=== PATIENT | female | born 1945 | race Caucasian/White ===

== ENCOUNTER 2023-06-06 10:35 | Outpatient (CLI) | payer MEDICARE, OTHER, SELFPAY ==
--- NOTE | 2023-06-06 10:56 | USCV_ITS ---
Omayra Ryan Age: 77 Gender: F : 1945 Exam Date: 06/06/2023 11:05 Ordering Phys: Kelly Donohue Technologist: CT Exam Location: [facility] [place] Indication: sob BP: 143 / 60 HR: 67 Rhythm: Sinus Technical Quality: Adequate MEASUREMENTS (Male / Female) Normal Values 2D ECHO LV Chamber Size 4.3 cm RV Chamber Size 3.5 cm LVOT Diameter 2.0 cm LV Ejection Fraction MOD 2C 61.5 % LV Ejection Fraction 2C AL 63.1 % LA Diameter 4.8 cm LA Width 3.9 cm LA Height 4.3 cm RA Width 3.0 cm RA Height 3.9 cm Aorta at Sinotubular Diameter 2.1 cm IVC Diameter 1.5 cm M-MODE Aortic Annulus Diameter 2.9 cm LA Ao Ratio MM 1.8 MV E Point Septal Separation 1.0 cm DOPPLER AV Peak Velocity 137.0 cm/s LVOT Peak Velocity 119.0 cm/s AV Area Cont Eq vti 2.6 cm squared AV Area Cont Eq pk 2.8 cm squared MV Peak Velocity 105.0 cm/s MV E' Velocity 8.0 cm/s TR Peak Velocity 276.7 cm/s TR Peak Gradient 30.6 mmHg TV Peak E Velocity 109.0 cm/s Right Atrial Pressure 3.0 mmHg Pulmonary Artery Systolic Pressu 33.6 mmHg PV Peak Velocity 118.0 cm/s FINDINGS Left Ventricle Normal left ventricular size, systolic function and wall thickness, with no regional wall motion abnormalities. Left ventricular ejection fraction is estimated at 70 %. Normal diastolic function. Right Ventricle Normal right ventricular size and systolic function. Right ventricular systolic pressure 33.6 mmHg. Right Atrium Normal right atrial size. Left Atrium Normal left atrial size. Mitral Valve Mild mitral annular calcification. Structurally normal mitral valve. No mitral valve stenosis. Trace mitral valve regurgitation. Aortic Valve Thickened trileaflet aortic valve. No aortic valve stenosis. Trace aortic valve regurgitation. Tricuspid Valve Structurally normal tricuspid valve. No tricuspid valve stenosis. Mild tricuspid valve regurgitation. Pulmonic Valve Structurally normal pulmonic valve. No pulmonary valve stenosis. Trace pulmonary valve regurgitation. Pericardium No pericardial effusion. Aorta Normal size aortic root and proximal ascending aorta. IVC Normal IVC dimension with >50% respiratory change of the inferior vena cava. CONCLUSIONS 1. Normal left ventricular size, systolic function and wall thickness, with no regional wall motion abnormalities. Left ventricular ejection fraction is estimated at 70 %. Normal diastolic function. 2. Mild tricuspid valve regurgitation. 3. Normal pulmonary artery pressure. 4. No prior similar studies to compare. Nichole Clark MD (Electronically Signed) Final Date: 06 June 2023 15:23 S
== END 2023-06-06 10:36 | disposition home or self-care (01) ==
LOC: RAD 10:42
PROVIDERS: PCP Registered Nurse; Visit Provider Registered Nurse
DX: R06.09 Other forms of dyspnea (principal); I07.1 Rheumatic tricuspid insufficiency
CPT/HCPCS: 93306

== ENCOUNTER → 2024-04-22 09:22 | Outpatient (BNVA) | payer MEDICARE, OTHER, SELFPAY | PROVIDERS: PCP Registered Nurse; Visit Provider Podiatrist Foot & Ankle Surgery | DX: M25.571 Pain in right ankle and joints of right foot (principal); M84.361A Stress fracture, right tibia, initial encounter for fracture | CPT/HCPCS: 73610 ==

== ENCOUNTER 2024-04-22 10:45 | Outpatient (CLI) | payer MEDICARE, OTHER, SELFPAY | END 2024-04-22 10:46 | disposition home or self-care (01) | LOC: SPT 10:46 | PROVIDERS: PCP Registered Nurse; Visit Provider Podiatrist Foot & Ankle Surgery | DX: Z46.89 Encounter for fitting and adjustment of other specified devices (principal); M84.30XD Stress fracture, unspecified site, subsequent encounter for fracture with routine healing; X58.XXXD Exposure to other specified factors, subsequent encounter | CPT/HCPCS: 97760; 99204; L4361 ==

== ENCOUNTER → 2024-05-14 13:44 | Outpatient (BNVA) | payer MEDICARE, OTHER, SELFPAY | PROVIDERS: PCP Registered Nurse; Visit Provider Podiatrist Foot & Ankle Surgery | DX: M25.571 Pain in right ankle and joints of right foot; M84.361A Stress fracture, right tibia, initial encounter for fracture; X58.XXXA Exposure to other specified factors, initial encounter; Z46.89 Encounter for fitting and adjustment of other specified devices; M84.369D Stress fracture, unspecified tibia and fibula, subsequent encounter for fracture with routine healing; X58.XXXD Exposure to other specified factors, subsequent encounter | CPT/HCPCS: 73610 ==

== ENCOUNTER 2024-05-14 14:14 | Outpatient (CLI) | payer MEDICARE, OTHER, SELFPAY | END 2024-05-14 14:15 | disposition home or self-care (01) | LOC: SPT 14:14 | PROVIDERS: PCP Registered Nurse; Visit Provider Podiatrist Foot & Ankle Surgery | DX: Z46.89 Encounter for fitting and adjustment of other specified devices (principal); M84.369D Stress fracture, unspecified tibia and fibula, subsequent encounter for fracture with routine healing; X58.XXXD Exposure to other specified factors, subsequent encounter | CPT/HCPCS: 97760; L1902 ==

== ENCOUNTER → 2024-05-28 13:48 | Outpatient (BNVA) | payer MEDICARE, OTHER, SELFPAY | PROVIDERS: PCP Registered Nurse; Visit Provider Podiatrist Foot & Ankle Surgery | DX: M84.361A Stress fracture, right tibia, initial encounter for fracture; X58.XXXA Exposure to other specified factors, initial encounter | CPT/HCPCS: 99213 ==

== ENCOUNTER → 2024-07-09 12:36 | Outpatient (BNVA) | payer MEDICARE, OTHER, SELFPAY | PROVIDERS: PCP Registered Nurse; Visit Provider Podiatrist Foot & Ankle Surgery | DX: M84.361A Stress fracture, right tibia, initial encounter for fracture | CPT/HCPCS: 99213 ==

== ENCOUNTER → 2024-10-08 13:57 | Outpatient (BNVA) | payer MEDICARE, OTHER, SELFPAY | PROVIDERS: PCP Registered Nurse; Visit Provider Podiatrist Foot & Ankle Surgery | DX: M84.361A Stress fracture, right tibia, initial encounter for fracture (principal); X58.XXXA Exposure to other specified factors, initial encounter | CPT/HCPCS: 99213 ==

== ENCOUNTER 2025-03-01 06:09 | Inpatient (IN) | payer MEDICARE, OTHER, SELFPAY ==
[2025-03-01] VITALS (23 sets, daily range): BP systolic 127–154; BP diastolic 57–99; PULSE 70–143; RESP 18–26; TEMP 36.4–37; O2SAT 90–96; BMI 30.2; BMI 31.9
--- NOTE | 2025-03-01 06:10 | ECG_ITS ---
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 Measurements Intervals Reese Rate: 136 P: 0 AL: 0 QRS: 5 QRSD: 92 T: 53 QT: 290 QTc: 437 Interpretive Statements ATRIAL FLUTTER/TACHYCARDIA WITH RAPID VENTRICULAR RESPONSE MODERATE ST DEPRESSION [0.05+ mV ST DEPRESSION] No previous ECG available for comparison Electronically Signed On 03-01-2025 18:34:42 CDT by Chris Anderson M.D. [email or web address]
--- NOTE | 2025-03-01 06:18 | XRR_ITS ---
PROCEDURE INFORMATION: Exam: XR Chest Exam date and time: 03/01/2025 6:28 AM Age: 79 years old Clinical indication: Other: Palpitations/afib; C/O palpitations with afib. ; Additional info: A fib rvr TECHNIQUE: Imaging protocol: Radiologic exam of the chest. Views: 1 view. COMPARISON: No relevant prior studies available. FINDINGS: Lungs: Mild chronic interstitial prominence. Pleural spaces: Unremarkable. No pleural effusion. No pneumothorax. Heart/Mediastinum: Unremarkable. No cardiomegaly. Diaphragm: Moderate elevation of the right hemidiaphragm. Bones/joints: Unremarkable. XR/XR chest 1V portable [id number] IMPRESSION: No acute findings.
--- NOTE | 2025-03-01 06:23 | W.ED.ARRPALP ---
HPI - Arrhythmia/Palpitations General: Chief Complaint: Arrhythmia/Palpitations Stated Complaint: afib Time Seen by Provider: 03/01/25 06:18 History of Present Illness: This patient is a 79 year old arriving by EMS. She states that she was awakened at 4:30 this morning with her heart racing. She denies chest pain or heaviness, denies shortness of breath, lightheadedness, nausea or sweating. She was given diltiazem by EMS - 17 mg and then 24 mg and in the ED during my history her heart rate was irregular and varied between 90 and 150. She denies any history of a fib or prior episodes of her heart racing - but she does say that she is on atenolol to regulate my heart . It sound like she might be on that for PVC?. She also says that she had ecoli in her kidney a few weeks ago and at that time her BP was running high so they increased her losartan from 50 mg to 100 mg. She denies other medication changes and says that she is compliant with her medications. She took her atenolol last night but hasn't taken any medications this morning. Related Data Home Medications ?Medication ?Instructions ?Recorded ?Confirmed alprazolam 0.25 mg tablet 0.125 mg PO TID 04/22/24 03/01/25 omeprazole 20 mg capsule,delayed 20 mg PO DAILY 04/22/24 03/01/25 release simvastatin 40 mg tablet 40 mg PO DAILY 04/22/24 03/01/25 triamterene 37.5 1 cap PO QAM 04/22/24 03/01/25 mg-hydrochlorothiazide 25 mg capsule atenolol 50 mg tablet 100 mg PO DAILY 03/01/25 03/01/25 calcium 600 mg (as 1 tab PO DAILY 03/01/25 03/01/25 carbonate)-vitamin D3 5 mcg (200 unit) tablet cyclobenzaprine 10 mg tablet 10 mg PO BEDTIME 03/01/25 03/01/25 losartan 100 mg tablet 100 mg PO DAILY 03/01/25 03/01/25 meloxicam 7.5 mg tablet 15 mg PO DAILY 03/01/25 03/01/25 metformin 500 mg tablet,extended 500 mg PO QAM 03/01/25 03/01/25 release 24 hr Previous Rx's ?Medication ?Instructions ?Recorded CAM BOOT #1 ea 04/22/24 ASO brace #1 ea 05/14/24 Allergies Allergy/AdvReac Type Severity Reaction Status Date / Time azithromycin Allergy Unknown Verified 03/01/25 06:11 Sulfa (Sulfonamide Allergy Unknown Verified 10/08/24 14:21 Antibiotics) [facility] ED PFSH: Medical History (Updated 03/01/25 @ 16:20 by Luis Antonio Clemons MD) Hypertension Presbycusis of both ears Diabetes COPD (chronic obstructive pulmonary disease) Social History (Updated 03/01/25 @ 16:19 by Luis Antonio Clemons MD) Smoking and tobacco/nicotine status: never used tobacco/nicotine Alcohol intake: never Substance/Drug Use: never Additional social history: 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 Physical Exam Const: COMMON NORMALS: no acute distress, patient oriented x3, no limitations and alert GENERAL APPEARANCE: cooperative and comfortable HENMT: HEAD & SCALP: normal to inspection FACE & SINUS: normal facial exam Eye: GENERAL EYE: appearance normal, both eyes and all related structures Neck/C-Spine: COMMON NORMALS: supple and no meningeal signs Chest: COMMONS NORMALS: normal inspection of the chest Resp: COMMON NORMALS: normal respiratory effort, No use of accessory muscles and clear to auscultation bilaterally AUSCULTATION: clear to auscultation bilaterally Cardio: COMMON NORMALS: Peripheral pulses 2+ throughout RATE: tachycardic RHYTHM: abnormal rhythm irregularly irregular HEART SOUNDS: no murmurs PERIPHERAL PULSES: Peripheral pulses 2+ throughout GI: COMMON NORMALS: Normal to inspection, nondistended, normoactive bowel sounds present, Soft to palpation and non-tender INSPECTION: Yes normal to inspection AUSCULTATION: Yes normoactive bowel sounds PALPATION: Yes Soft to palpation Back/Pelvis: COMMON NORMALS: thoracic and lumbar spine normal to inspection Extremity: NARRATIVE EXTREMITY EXAM: trace edema Neuro: COMMON NORMALS: patient oriented x3, moves all extremities, no focal motor deficits and no sensory deficits noted SENSORIUM/ORIENTATION: Yes alert MENINGEAL SIGNS: Yes no meningeal signs Psych: COMMON NORMALS: mental status grossly normal, cooperative and normal affect Skin: COMMON NORMALS: no rashes or lesions noted and turgor normal GENERAL SKIN EXAM: no rashes or lesions noted and turgor normal Course Vital Signs: Vital signs: Vital Signs Temperature 98.0 F 03/01/25 16:00 Pulse Rate 74 03/01/25 16:00 Respiratory Rate 19 H 03/01/25 16:00 Blood Pressure 137/57 03/01/25 16:00 Pulse Oximetry 96 03/01/25 16:00 Oxygen Delivery Me thod Nasal Cannula 03/01/25 13:48 Oxygen Flow Rate 2 03/01/25 13:48 MDM - Arrhythmia/Palpitations Medical Decision Making Patient presents with elevated heart rate but otherwise asymptomatic. She is on atenolol and hasn't taken it yet today. BP is 150's. She had a recent episode of pyelonephritis a few weeks ago. Unfortunately, her only records in our EHR are podiatry records. Diltiazem drip is started. Next step will be IV metoprolol. I suspect this is more likely A flutter than a fib but it is difficult to see p waves on the EKG. repeat EKG showed resolution of the mild ST depression that was seen on the initial. She was comfortable. She was admitted to the hospitalist on a Cardizem drip. Lab Data 03/01/25 06:20 03/01/25 06:20 Radiology Impressions Chest X-Ray 03/01/25 06:18 IMPRESSION: No acute findings. Laboratory Results WBC 6.38 10^3/uL (3.29-11.43) 03/01/25 06:20 RBC 4.23 10^6/uL (3.85-5.65) 03/01/25 06:20 Hgb 12.20 g/dL (11.27-16.99) 03/01/25 06:20 Hct 38.3 % (36-47) 03/01/25 06:20 MCV 90.5 fl (85-98) 03/01/25 06:20 MCH 28.8 pg (27-33) 03/01/25 06:20 MCHC 31.9 g/dL (30-55) 03/01/25 06:20 RDW 11.9 % (12.1-15.1) L 03/01/25 06:20 Plt Count 192 10^3/cmm (157-399) 03/01/25 06:20 MPV 10.2 fL (7.4-10.4) 03/01/25 06:20 Neut % (Auto) 64.0 % 03/01/25 06:20 Lymph % (Auto) 20.8 % 03/01/25 06:20 Stanton % (Auto) 10.3 % 03/01/25 06:20 Eos % (Auto) 3.9 % 03/01/25 06:20 Baso % (Auto) 0.5 % 03/01/25 06:20 Neut # (Auto) 4.08 10^3/uL (1.8-7.7) 03/01/25 06:20 Lymph # (Auto) 1.3 10^3/uL (0.8-4.8) 03/01/25 06:20 Stanton # (Auto) 0.7 10^3/uL (0.2-0.9) 03/01/25 06:20 Eos # (Auto) 0.3 10^3/uL (0.0-0.8) 03/01/25 06:20 Baso # (Auto) 0.0 10^3/uL (0.0-0.1) 03/01/25 06:20 Nucleated RBC % (auto) 0 % 03/01/25 06:20 Nucleated RBCs # 0.0 /100WBC 03/01/25 06:20 Sodium 137 mmol/L (136-145) 03/01/25 06:20 Potassium 3.9 mmol/L (3.5-5.1) 03/01/25 06:20 Chloride 98 mmol/L (98-107) 03/01/25 06:20 Carbon Dioxide 28 mmol/L (22-29) 03/01/25 06:20 Anion Gap 14.9 (5-19) 03/01/25 06:20 BUN 21 mg/dL (8-23) 03/01/25 06:20 Creatinine 0.9 mg/dL (0.5-0.9) 03/01/25 06:20 GFR Calculation Not Reportable 03/01/25 06:20 Glucose 154 mg/dL (65-115) H 03/01/25 06:20 Calculated Osmolality 290 mOsm/kg (285-295) 03/01/25 06:20 Calcium 8.2 mg/dL (8.5-10.5) L 03/01/25 06:20 Total Bilirubin 0.4 mg/dL (0.15-1.2) 03/01/25 06:20 AST 17 U/L (0-32) 03/01/25 06:20 ALT 10 U/L (0-33) 03/01/25 06:20 Alkaline Phosphatase 85 U/L (35-105) 03/01/25 06:20 Troponin T Baseline 14 ng/L (0-10) H 03/01/25 06:20 Troponin T 120 Minute 17.58 ng/L (0-10) H 03/01/25 08:21 Delta Troponin T 3.58 ABS# (0-10) 03/01/25 08:21 NT-Pro-B Natriuret Pep 785 pg/mL (0-450) H 03/01/25 06:20 Total Protein 6.7 g/dL (6.6-8.7) 03/01/25 06:20 Albumin 3.7 g/dL (3.5-5.2) 03/01/25 06:20 Globulin 3.0 g/dL (1.3-4.6) 03/01/25 06:20 Urine Color Yellow (Yellow) 03/01/25 06:20 Urine Appearance Clear (CLEAR) 03/01/25 06:20 Urine pH 8.0 (5-7) A 03/01/25 06:20 Ur Specific [place] 1.008 (1.005-1.030) 03/01/25 06:20 Urine Protein 1+ (Negative) A 03/01/25 06:20 Urine Glucose (UA) Negative (Normal) 03/01/25 06:20 Urine Ketones Negative (Negative) 03/01/25 06:20 Urine Blood Negative (Negative) 03/01/25 06:20 Urine Nitrate Negative (Negative) 03/01/25 06:20 Urine Bilirubin Negative (Negative) 03/01/25 06:20 Urine Urobilinogen 0.2 mg/dL (Negative) 03/01/25 06:20 Ur Leukocyte Esterase Negative (Negative) 03/01/25 06:20 Urine RBC 0-2 /hpf (0-2) 03/01/25 06:20 Urine WBC 0-5 /hpf (0-5) 03/01/25 06:20 Ur Squamous Epith Cells 0-5 /hpf (0-5) 03/01/25 06:20 Amorphous Sediment Not Reportable 03/01/25 06:20 Urine Bacteria 3+ /hpf (NONE) H 03/01/25 06:20 Hyaline Casts 0-4 /lpf H 03/01/25 06:20 All radiology interpretation(s) finalized by discharge Discharge Plan Discharge Patient Disposition: Admitted As Inpatient Admit Provider: Luis Antonio Clemons Clinical Impression: Atrial flutter, Atrial flutter with rapid ventricular response Condition: Stable Coding Level of Care Code ED Church Organist for Debby Krause
--- OUTSIDE RECORDS SUMMARY | 2025-03-01 06:24 | XMS_ITS | Encounter Summary ---
Author Organization [facility] Address [address] [place] [address] Care Team Providers Care Medical Information Officer Name Role Phone Nicole Blank MD Primary Care Provider [phone] Encounter Details Date Type Department Care Team (Latest Contact Info) Description 01/13/2003 Outpatient Historical [facility] Family Medicine [place] [address] [facility] [address] [place] [address] Shukri Teran DO NO ADDRESS ON FILE Sprain lumbosacral (Primary Dx); CYSTITIS NOS Social History Tobacco Use Types Packs/Day Years Used Date Smoking Tobacco: Never Assessed Comments Unknown Sex and Gender Information Value Date Recorded Sex Assigned at Not on file 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 Gender Identity Not on file Sexual Orientation Not on file documented as of this encounter Plan of Treatment Not on file documented as of this encounter Visit Diagnoses Diagnosis Sprain lumbosacral- Primary Sprain of lumbosacral (joint) (ligament) Cystitis, unspecified documented in this encounter Additional Health Concerns Infection Onset Date Last Indicated Resolved Time R/O COVID-19 04/27/2020 04/27/2020 04/29/2020 2:15 AM CDT R/O COVID-19 02/01/2021 02/01/2021 02/01/2021 3:10 PM CDT documented as of this encounter Care Teams Medical Information Officer Relationship Specialty Start Date End Date Nicole Blank MD [address] [phone] PCP - General Family Practice 10/02/13 documented as of this encounter
--- OUTSIDE RECORDS SUMMARY | 2025-03-01 06:24 | XMS_ITS | Encounter Summary ---
Author Organization [facility] Address [address] [place] [address] Care Team Providers Care Dental Hygienist Name Role Phone Nicole Blank MD Primary Care Provider Encounter Details Date Type Department Care Team (Latest Contact Info) Description 11/15/[address] 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 Gender Identity Not on file Sexual Orientation Not on file documented as of this encounter Plan of Treatment Not on file documented as of this encounter Visit Diagnoses Diagnosis Pure hypercholesterolem- Primary Pure hypercholesterolemia documented in this encounter Additional Health Concerns Infection Onset Date Last Indicated Resolved Time R/O COVID-19 04/27/2020 04/27/2020 04/29/2020 2:15 AM CDT R/O COVID-19 02/01/2021 02/01/2021 02/01/2021 3:10 PM CDT documented as of this encounter Care Teams Dental Hygienist Relationship Specialty Start Date End Date Nicole Blank MD [address] [phone] PCP - General Family Practice 10/02/13 documented as of this encounter
--- OUTSIDE RECORDS SUMMARY | 2025-03-01 06:24 | XMS_ITS | Encounter Summary ---
Author Organization [facility] Address [address] [place] [address] Care Team Providers Care Director Wholesale Name Role Phone Nicole Blank MD Primary Care Provider Encounter Details Date Type Department Care Team (Latest Contact Info) Description 06/14/2001 Outpatient Historical [facility] Family Medicine [place] [address] [facility] [address] [place] [address] Shukri Teran DO NO ADDRESS ON FILE SYMPTOMS IN BREAST NEC (Primary Dx) Social History Tobacco Use Types Packs/Day Years Used Date Smoking Tobacco: Never Assessed Comments Unknown Sex and Gender Information Value Date Recorded Sex Assigned at Not on file 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 Gender Identity Not on file Sexual Orientation Not on file documented as of this encounter Plan of Treatment Not on file documented as of this encounter Visit Diagnoses Diagnosis Other sign and symptom in breast- Primary documented in this encounter Additional Health Concerns Infection Onset Date Last Indicated Resolved Time R/O COVID-19 04/27/2020 04/27/2020 04/29/2020 2:15 AM CDT R/O COVID-19 02/01/2021 02/01/2021 02/01/2021 3:10 PM CDT documented as of this encounter Care Teams Director Wholesale Relationship Specialty Start Date End Date Nicole Blank MD [address] [phone] PCP - General Family Practice 10/02/13 documented as of this encounter
--- OUTSIDE RECORDS SUMMARY | 2025-03-01 06:24 | XMS_ITS | Encounter Summary ---
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 Gender Identity Not on file Sexual Orientation Not on file documented as of this encounter Plan of Treatment Not on file documented as of this encounter Visit Diagnoses Not on filedocumented in this encounter Additional Health Concerns Infection Onset Date Last Indicated Resolved Time R/O COVID-19 04/27/2020 04/27/2020 04/29/2020 2:15 AM CDT R/O COVID-19 02/01/2021 02/01/2021 02/01/2021 3:10 PM CDT documented as of this encounter Care Teams Hot Air Furnace Installer And Repairer Relationship Specialty Start Date End Date Nicole Blank MD [address] [phone] PCP - General Family Practice 10/02/13 documented as of this encounter
--- OUTSIDE RECORDS SUMMARY | 2025-03-01 06:24 | XMS_ITS | Encounter Summary ---
Author Organization [facility] Address [address] [place] [address] Care Team Providers Care Sourcing Manager Name Role Phone Nicole Blank MD Primary Care Provider Encounter Details Date Type Department Care Team (Latest Contact Info) Description 11/14/[address] 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 Gender Identity Not on file Sexual Orientation Not on file documented as of this encounter Plan of Treatment Not on file documented as of this encounter Visit Diagnoses Diagnosis Other and unspecified adverse effect of drug, medicinal and biological substance- Primary Urticaria, unspecified documented in this encounter Additional Health Concerns Infection Onset Date Last Indicated Resolved Time R/O COVID-19 04/27/2020 04/27/2020 04/29/2020 2:15 AM CDT R/O COVID-19 02/01/2021 02/01/2021 02/01/2021 3:10 PM CDT documented as of this encounter Care Teams Sourcing Manager Relationship Specialty Start Date End Date Nicole Blank MD [address] [phone] PCP - General Family Practice 10/02/13 documented as of this encounter
--- OUTSIDE RECORDS SUMMARY | 2025-03-01 06:24 | XMS_ITS | Encounter Summary ---
Author Organization [facility] Address [address] [place] [address] Care Team Providers Care Pruner Name Role Phone Nicole Blank MD Primary Care Provider Encounter Details Date Type Department Care Team (Latest Contact Info) Description 08/30/2004 Outpatient Historical [facility] Medicine [address] [place] [address] Shukri Teran DO NO ADDRESS ON FILE ACUTE BRONCHITIS (Primary Dx) Social History Tobacco Use Types Packs/Day Years Used Date Smoking Tobacco: Never Assessed Comments Unknown Sex and Gender Information Value Date Recorded Sex Assigned at Not on file 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 Gender Identity Not on file Sexual Orientation Not on file documented as of this encounter Plan of Treatment Not on file documented as of this encounter Visit Diagnoses Diagnosis Acute bronchitis- Primary documented in this encounter Additional Health Concerns Infection Onset Date Last Indicated Resolved Time R/O COVID-19 04/27/2020 04/27/2020 04/29/2020 2:15 AM CDT R/O COVID-19 02/01/2021 02/01/2021 02/01/2021 3:10 PM CDT documented as of this encounter Care Teams Pruner Relationship Specialty Start Date End Date Nicole Blank MD [address] [phone] PCP - General Family Practice 10/02/13 documented as of this encounter
--- OUTSIDE RECORDS SUMMARY | 2025-03-01 06:24 | XMS_ITS | Encounter Summary ---
Author Organization [facility] Address [address] [place] [address] Care Team Providers Care Furnace Room Supervisor Name Role Phone Nicole Blank MD Primary Care Provider Encounter Details Date Type Department Care Team (Latest Contact Info) Description 05/03/2001 Outpatient Historical [facility] Medicine [place] [address] [facility] [address] [place] [address] Shukri Teran DO NO ADDRESS ON FILE Gynecologic examination (Primary Dx); Screening for malignant neoplasm of the rectum Social History Tobacco Use Types Packs/Day Years Used Date Smoking Tobacco: Never Assessed Comments Unknown Sex and Gender Information Value Date Recorded Sex Assigned at Not on file 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 Gender Identity Not on file Sexual Orientation Not on file documented as of this encounter Plan of Treatment Not on file documented as of this encounter Visit Diagnoses Diagnosis Gynecologic examination- Primary Gynecological examination Screening for malignant neoplasm of the rectum documented in this encounter Additional Health Concerns Infection Onset Date Last Indicated Resolved Time R/O COVID-19 04/27/2020 04/27/2020 04/29/2020 2:15 AM CDT R/O COVID-19 02/01/2021 02/01/2021 02/01/2021 3:10 PM CDT documented as of this encounter Care Teams Furnace Room Supervisor Relationship Specialty Start Date End Date Nicole Blank MD [address] [phone] PCP - General Family Practice 10/02/13 documented as of this encounter
--- OUTSIDE RECORDS SUMMARY | 2025-03-01 06:24 | XMS_ITS | Encounter Summary ---
Author Organization [facility] Address [address] [place] [address] Care Team Providers Care Senior Data Analyst Name Role Phone Nicole Blank MD Primary Care Provider Encounter Details Date Type Department Care Team (Latest Contact Info) Description 04/05/2001 Outpatient Historical [facility] Medicine [place] [address] [facility] [address] [place] [address] Shukri Teran DO NO ADDRESS ON FILE Other and unspecified hyperlipidemia (Primary Dx) Social History Tobacco Use Types Packs/Day Years Used Date Smoking Tobacco: Never Assessed Comments Unknown Sex and Gender Information Value Date Recorded Sex Assigned at Not on file 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 Sex Female 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 Gender Identity Not on file Sexual Orientation Not on file documented as of this encounter Plan of Treatment Not on file documented as of this encounter Visit Diagnoses Diagnosis Other and unspecified hyperlipidemia- Primary documented in this encounter Additional Health Concerns Infection Onset Date Last Indicated Resolved Time R/O COVID-19 04/27/2020 04/27/2020 04/29/2020 2:15 AM CDT R/O COVID-19 02/01/2021 02/01/2021 02/01/2021 3:10 PM CDT documented as of this encounter Care Teams Senior Data Analyst Relationship Specialty Start Date End Date Nicole Blank MD [address] [phone] PCP - General Family Practice 10/02/13 documented as of this encounter
--- OUTSIDE RECORDS SUMMARY | 2025-03-01 06:24 | XMS_ITS | Encounter Summary ---
Author Organization [facility] Address [address] [place] [address] Care Team Providers Care Jig Boring Machine Operator For Metal Name Role Phone Nicole Blank MD Primary Care Provider Encounter Details Date Type Department Care Team (Latest Contact Info) Description 09/02/[address] [facility] Medicine [place] 104 [facility] 60 [place] [address] Shukri Teran DO NO ADDRESS ON FILE ACUTE SINUSITIS NOS (Primary Dx); ACUTE BRONCHITIS Social History Tobacco Use Types Packs/Day Years Used Date Smoking Tobacco: Never Assessed Comments Unknown Sex and Gender Information Value Date Recorded Sex Assigned at Not on file Legal Sex Female 4:03 AM TIE TAMPER Gender Identity Not on file Sexual Orientation Not on file documented as of this encounter Plan of Treatment Not on file documented as of this encounter Visit Diagnoses Diagnosis Acute sinusitis, unspecified- Primary Acute bronchitis documented in this encounter Additional Health Concerns Infection Onset Date Last Indicated Resolved Time R/O COVID-19 04/27/2020 04/27/2020 04/29/2020 2:15 AM CDT R/O COVID-19 02/01/2021 02/01/2021 02/01/2021 3:10 PM CDT documented as of this encounter Care Teams Jig Boring Machine Operator For Metal Relationship Specialty Start Date End Date Nicole Blank MD [address] [phone] PCP - General Family Practice 10/02/13 documented as of this encounter
--- OUTSIDE RECORDS SUMMARY | 2025-03-01 06:24 | XMS_ITS | Encounter Summary ---
Author Organization [facility] Address [address] [place] [address] Care Team Providers Care Flue Lining Dipper Name Role Phone Nicole Blank MD Primary Care Provider [phone] Encounter Details Date Type Department Care Team (Latest Contact Info) Description 06/05/2003 Outpatient Historical [facility] Medicine [place] [address] [facility] 60 [place] [address] Shukri Teran DO NO ADDRESS ON FILE HYPERTENSION NOS (Primary Dx); HYPERLIPIDEMIA NEC/NOS; Vaccine for influenza Social History Tobacco Use Types Packs/Day Years Used Date Smoking Tobacco: Never Assessed Comments Unknown Sex and Gender Information Value Date Recorded Sex Assigned at Not on file Legal Sex Female 4:03 AM SURVEYOR GEODETIC Gender Identity Not on file Sexual Orientation Not on file documented as of this encounter Plan of Treatment Not on file documented as of this encounter Visit Diagnoses Diagnosis Unspecified essential hypertension- Primary Other and unspecified hyperlipidemia Vaccine for influenza Need for prophylactic vaccination and inoculation against influenza documented in this encounter Additional Health Concerns Infection Onset Date Last Indicated Resolved Time R/O COVID-19 04/27/2020 04/27/2020 04/29/2020 2:15 AM CDT R/O COVID-19 02/01/2021 02/01/2021 02/01/2021 3:10 PM CDT documented as of this encounter Care Teams Flue Lining Dipper Relationship Specialty Start Date End Date Nicole Blank MD [address] [phone] PCP - General Family Practice 10/02/13 documented as of this encounter
--- OUTSIDE RECORDS SUMMARY | 2025-03-01 06:24 | XMS_ITS | Encounter Summary ---
Author Organization [facility] Address [address] [place] [address] Care Team Providers Care Oyster Opener Name Role Phone Nicole Blank MD Primary Care Provider [phone] Encounter Details Date Type Department Care Team (Latest Contact Info) Description 08/03/2003 Outpatient Historical [facility] Family Medicine- [place] [address] [facility], [place] [id number] Teodoro Burt MD [address] [address] ACUTE PHARYNGITIS (Primary Dx); ACUTE SINUSITIS NOS Social History Tobacco Use Types Packs/Day Years Used Date Smoking Tobacco: Never Assessed Comments Unknown Sex and Gender Information Value Date Recorded Sex Assigned at Not on file 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 Sex Female 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 Gender Identity Not on file Sexual Orientation Not on file documented as of this encounter Plan of Treatment Not on file documented as of this encounter Visit Diagnoses Diagnosis Acute pharyngitis- Primary Acute sinusitis, unspecified documented in this encounter Additional Health Concerns Infection Onset Date Last Indicated Resolved Time R/O COVID-19 04/27/2020 04/27/2020 04/29/2020 2:15 AM CDT R/O COVID-19 02/01/2021 02/01/2021 02/01/2021 3:10 PM CDT documented as of this encounter Care Teams Oyster Opener Relationship Specialty Start Date End Date Nicole Blank MD [address] [phone] PCP - General Family Practice 10/02/13 documented as of this encounter
--- OUTSIDE RECORDS SUMMARY | 2025-03-01 06:24 | XMS_ITS | Encounter Summary ---
Author Organization [facility] Address [address] [place] [address] Care Team Providers Care Supervisor Asbestos Textile Name Role Phone Nicole Blank MD Primary Care Provider Encounter Details Date Type Department Care Team (Latest Contact Info) Description 10/04/2000 Outpatient Historical [facility] Family Medicine [place] 104 [address] [facility] 60 [place] [address] Shukri Teran DO NO ADDRESS ON FILE Abdominal pain, unspecified site (Primary Dx) Social History Tobacco Use Types Packs/Day Years Used Date Smoking Tobacco: Never Assessed Comments Unknown Sex and Gender Information Value Date Recorded Sex Assigned at Not on file Legal Sex Female 4:03 AM MANAGED CARE DIRECTOR Gender Identity Not on file Sexual Orientation Not on file documented as of this encounter Plan of Treatment Not on file documented as of this encounter Visit Diagnoses Diagnosis Abdominal pain, unspecified site- Primary documented in this encounter Additional Health Concerns Infection Onset Date Last Indicated Resolved Time R/O COVID-19 04/27/2020 04/27/2020 04/29/2020 2:15 AM CDT R/O COVID-19 02/01/2021 02/01/2021 02/01/2021 3:10 PM CDT documented as of this encounter Care Teams Supervisor Asbestos Textile Relationship Specialty Start Date End Date Nicole Blank MD [address] [phone] PCP - General Family Practice 10/02/13 documented as of this encounter
--- OUTSIDE RECORDS SUMMARY | 2025-03-01 06:24 | XMS_ITS | Encounter Summary ---
Author Organization [facility] Address [address] [place] [address] Care Team Providers Care Spring Tester Name Role Phone Nicole Blank MD Primary Care Provider Encounter Details Date Type Department Care Team (Latest Contact Info) Description 10/05/2000 Outpatient Historical [facility] General and Trauma Surgery-[place] [address] [facility] [address] [place] [address] Kofi Mcclain MD NO ADDRESS ON FILE Abdominal pain, other specified site (Primary Dx); Nausea with vomiting Social History Tobacco Use Types Packs/Day Years Used Date Smoking Tobacco: Never Assessed Comments Unknown Sex and Gender Information Value Date Recorded Sex Assigned at Not on file Legal Sex Female 4:03 AM GAMING SURVEILLANCE OBSERVER Gender Identity Not on file Sexual Orientation Not on file documented as of this encounter Plan of Treatment Not on file documented as of this encounter Visit Diagnoses Diagnosis Abdominal pain, other specified site- Primary Nausea with vomiting documented in this encounter Additional Health Concerns Infection Onset Date Last Indicated Resolved Time R/O COVID-19 04/27/2020 04/27/2020 04/29/2020 2:15 AM CDT R/O COVID-19 02/01/2021 02/01/2021 02/01/2021 3:10 PM CDT documented as of this encounter Care Teams Spring Tester Relationship Specialty Start Date End Date Nicole Blank MD [address] [phone] PCP - General Family Practice 10/02/13 documented as of this encounter
--- OUTSIDE RECORDS SUMMARY | 2025-03-01 06:24 | XMS_ITS | Encounter Summary ---
Author Organization [facility] Address [address] [place] [address] Care Team Providers Care Fiscal Specialist Name Role Phone Nicole Blank MD Primary Care Provider Encounter Details Date Type Department Care Team (Latest Contact Info) Description 06/01/2003 Outpatient Historical [facility] Medicine [place] [address] [facility] 60 [place] [address] Shukri Teran DO NO ADDRESS ON FILE Gynecologic examination (Primary Dx); DERMATITIS NOS; HYPERTENSION NOS; SCREENING MAL NEOP-RECTUM Social History Tobacco Use Types Packs/Day Years Used Date Smoking Tobacco: Never Assessed Comments Unknown Sex and Gender Information Value Date Recorded Sex Assigned at Not on file Legal Sex Female 4:03 AM SUPERINTENDENT RECREATION Gender Identity Not on file Sexual Orientation Not on file documented as of this encounter Plan of Treatment Not on file documented as of this encounter Visit Diagnoses Diagnosis Gynecologic examination- Primary Gynecological examination Contact dermatitis and other eczema, due to unspecified cause Unspecified essential hypertension Screening for malignant neoplasm of the rectum documented in this encounter Additional Health Concerns Infection Onset Date Last Indicated Resolved Time R/O COVID-19 04/27/2020 04/27/2020 04/29/2020 2:15 AM CDT R/O COVID-19 02/01/2021 02/01/2021 02/01/2021 3:10 PM CDT documented as of this encounter Care Teams Fiscal Specialist Relationship Specialty Start Date End Date Nicole Blank MD [address] [phone] PCP - General Family Practice 10/02/13 documented as of this encounter
--- OUTSIDE RECORDS SUMMARY | 2025-03-01 06:24 | XMS_ITS | Encounter Summary ---
Author Organization [facility] Address [address] [place]: [place] [address] Care Team Providers Care Salt Grinder Name Role Phone Nicole Blank MD Primary Care Provider Encounter Details Date Type Department Care Team (Late st Contact Info) Description 10/29/2000 Outpatient Historical Kofi Mcclain MD NO ADDRESS ON FILE Social History Tobacco Use Types Packs/Day Years Used Date Smoking Tobacco: Never Assessed Comments Unknown Sex and Gender Information Value Date Recorded Sex Assigned at Not on file Legal Sex Female 4:03 AM SHROUDMAN Gender Identity Not on file Sexual Orientation [...] documented as of this encounter Care Teams Salt Grinder Relationship Specialty Start Date End Date Nicole Blank MD [address] [place] [phone] PCP - General Family Practice 10/02/13 documented as of this encounter
--- OUTSIDE RECORDS SUMMARY | 2025-03-01 06:24 | XMS_ITS | Encounter Summary ---
Author Organization [facility] Address [address] [place] [address] Care Team Providers Care Aerial Sprayer Name Role Phone Nicole Blank MD Primary Care Provider [phone] Encounter Details Date Type Department Care Team (Latest Contact Info) Description 05/23/2002 Outpatient Historical [facility] Medicine [place] [address] [facility] 60 [place] [address] Shukri Teran DO NO ADDRESS ON FILE Gynecologic examination (Primary Dx); EXT HEMORRHOID W/O COMPL; HYPERTENSION NOS; SCREENING MAL NEOP-RECTUM Social History Tobacco Use Types Packs/Day Years Used Date Smoking Tobacco: Never Assessed Comments Unknown Sex and Gender Information Value Date Recorded Sex Assigned at Not on file Legal Sex Female 4:03 AM MANAGER DOCUMENTATION Gender Identity Not on file Sexual Orientation Not on file documented as of this encounter Plan of Treatment Not on file documented as of this encounter Visit Diagnoses Diagnosis Gynecologic examination- Primary Gynecological examination External hemorrhoids without mention of complication Unspecified essential hypertension Screening for malignant neoplasm of the rectum documented in this encounter Additional Health Concerns Infection Onset Date Last Indicated Resolved Time R/O COVID-19 04/27/2020 04/27/2020 04/29/2020 2:15 AM CDT R/O COVID-19 02/01/2021 02/01/2021 02/01/2021 3:10 PM CDT documented as of this encounter Care Teams Aerial Sprayer Relationship Specialty Start Date End Date Nicole Blank MD [address] [phone] PCP - General Family Practice 10/02/13 documented as of this encounter
--- OUTSIDE RECORDS SUMMARY | 2025-03-01 06:24 | XMS_ITS | Encounter Summary ---
Author Organization [facility] Address [address] [place] [address] Care Team Providers Care Sheep Herder Name Role Phone Nicole Blank MD Primary Care Provider Encounter Details Date Type Department Care Team (Latest Contact Info) Description 11/12/2000 Outpatient Historical [facility] General and Trauma Surgery[place] [address] [facility] [address] [place] [address] Kofi Mcclain MD NO ADDRESS ON FILE Abdominal pain, epigastric (Primary Dx) Social History Tobacco Use Types Packs/Day Years Used Date Smoking Tobacco: Never Assessed Comments Unknown Sex and Gender Information Value Date Recorded Sex Assigned at Not on file Legal Sex Female 4:03 AM NATURAL FOODS CLERK Gender Identity Not on file Sexual Orientation Not on file documented as of this encounter Plan of Treatment Not on file documented as of this encounter Visit Diagnoses Diagnosis Abdominal pain, epigastric- Primary documented in this encounter Additional Health Concerns Infection Onset Date Last Indicated Resolved Time R/O COVID-19 04/27/2020 04/27/2020 04/29/2020 2:15 AM CDT R/O COVID-19 02/01/2021 02/01/2021 02/01/2021 3:10 PM CDT documented as of this encounter Care Teams Sheep Herder Relationship Specialty Start Date End Date Nicole Blank MD [address] [phone] PCP - General Family Practice 10/02/13 documented as of this encounter
--- OUTSIDE RECORDS SUMMARY | 2025-03-01 06:24 | XMS_ITS | Encounter Summary ---
Author Organization [facility] Address [address] [place] [address] Care Team Providers Care V Belt Builder Name Role Phone Nicole Blank MD Primary Care Provider [phone] Encounter Details Date Type Department Care Team (Latest Contact Info) Description 07/23/[address] [facility] Family Medicine [place] 104 [facility] 60 [place] [address] Shukri Teran DO NO ADDRESS ON FILE HYPERTENSION NOS (Primary Dx); OSTEOARTHROS NOS-UNSPEC Social History Tobacco Use Types Packs/Day Years Used Date Smoking Tobacco: Never Assessed Comments Unknown Sex and Gender Information Value Date Recorded Sex Assigned at Not on file Legal Sex Female 4:03 AM TOOLING ENGINEERING TECH Gender Identity Not on file Sexual Orientation Not on file documented as of this encounter Plan of Treatment Not on file documented as of this encounter Visit Diagnoses Diagnosis Unspecified essential hypertension- Primary Osteoarthrosis, unspecified whether generalized or localized, unspecified site documented in this encounter Additional Health Concerns Infection Onset Date Last Indicated Resolved Time R/O COVID-19 04/27/2020 04/27/2020 04/29/2020 2:15 AM CDT R/O COVID-19 02/01/2021 02/01/2021 02/01/2021 3:10 PM CDT documented as of this encounter Care Teams V Belt Builder Relationship Specialty Start Date End Date Nicole Blank MD [address] [phone] PCP - General Family Practice 10/02/13 documented as of this encounter
--- OUTSIDE RECORDS SUMMARY | 2025-03-01 06:24 | XMS_ITS | Encounter Summary ---
Author Organization [facility] Address [address] [place] [address] Care Team Providers Care Climbing Guide Name Role Phone Nicole Blank MD Primary Care Provider [phone] Encounter Details Date Type Department Care Team (Late st Contact Info) Description 08/30/2004 Outpatient Historical [facility] Shukri Teran, NO ADDRESS ON FILE Social History Tobacco Use Types Packs/Day Years Used Date Smoking Tobacco: Never Assessed Comments Unknown Sex and Gender Information Value Date Recorded Sex Assigned at Not on file Legal Sex Female 4:03 AM NETWORK/TELECOM ENGINEER Gender Identity Not on file Sexual [...] documented as of this encounter Care Teams Climbing Guide Relationship Specialty Start Date End Date Nicole Blank MD [address] [place] [phone] PCP - General Family Practice 10/02/13 documented as of this encounter
--- OUTSIDE RECORDS SUMMARY | 2025-03-01 06:24 | XMS_ITS | Encounter Summary ---
Author Organization [facility] Address [address] [place] [address] Care Team Providers Care American Studies Professor Name Role Phone Nicole Blank MD Primary Care Provider Encounter Details Date Type Department Care Team (Latest Contact Info) Description 01/10/[address] [facility] Family Medicine [place] [address] [facility] 60 [place] [address] Teodoro Burt MD [address] [address] ABDOMINAL PAIN UNSPEC SITE (Primary Dx); DIARRHEA NOS Social History Tobacco Use Types Packs/Day Years Used Date Smoking Tobacco: Never Assessed Comments Unknown Sex and Gender Information Value Date Recorded Sex Assigned at Not on file Legal Sex Female 4:03 AM DOCUMENTATION LIAISON Gender Identity Not on file Sexual Orientation Not on file documented as of this encounter Plan of Treatment Not on file documented as of this encounter Visit Diagnoses Diagnosis Abdominal pain, unspecified site- Primary Diarrhea documented in this encounter Additional Health Concerns Infection Onset Date Last Indicated Resolved Time R/O COVID-19 04/27/2020 04/27/2020 04/29/2020 2:15 AM CDT R/O COVID-19 02/01/2021 02/01/2021 02/01/2021 3:10 PM CDT documented as of this encounter Care Teams American Studies Professor Relationship Specialty Start Date End Date Nicole Blank MD [address] [phone] PCP - General Family Practice 10/02/13 documented as of this encounter
--- OUTSIDE RECORDS SUMMARY | 2025-03-01 06:24 | XMS_ITS | Encounter Summary ---
Author Organization [facility] Address [address] [place] [address] Care Team Providers Care Bait Painter Name Role Phone Nicole Blank MD Primary Care Provider Encounter Details Date Type Department Care Team (Latest Contact Info) Description 07/08/2003 Outpatient Historical [facility] Family Medicine [place] [address] [facility] [address] [place] [address] Shukri Teran DO NO ADDRESS ON FILE HYPERTENSION NOS (Primary Dx); HYPOPOTASSEMIA Social History Tobacco Use Types Packs/Day Years Used Date Smoking Tobacco: Never Assessed Comments Unknown Sex and Gender Information Value Date Recorded Sex Assigned at Not on file Legal Sex Female 4:03 AM BACK TENDER FOURDRINIER Gender Identity Not on file Sexual Orientation Not on file documented as of this encounter Plan of Treatment Not on file documented as of this encounter Visit Diagnoses Diagnosis Unspecified essential hypertension- Primary Hypopotassemia documented in this encounter Additional Health Concerns Infection Onset Date Last Indicated Resolved Time R/O COVID-19 04/27/2020 04/27/2020 04/29/2020 2:15 AM CDT R/O COVID-19 02/01/2021 02/01/2021 02/01/2021 3:10 PM CDT documented as of this encounter Care Teams Bait Painter Relationship Specialty Start Date End Date Nicole Blank MD [address] [phone] PCP - General Family Practice 10/02/13 documented as of this encounter
--- OUTSIDE RECORDS SUMMARY | 2025-03-01 06:24 | XMS_ITS | Encounter Summary ---
Author Organization [facility] Address [address] [place] [address] Care Team Providers Care Track Laminating Machine Tender Name Role Phone Nicole Blank MD Primary Care Provider [phone] Encounter Details Date Type Department Care Team (Late st Contact Info) Description 06/05/2003 Outpatient Historical [facility] Medicine [address] [address] Shukri Teran DO NO ADDRESS ON FILE Social History Tobacco Use Types Packs/Day Years Used Date Smoking Tobacco: Never Assessed Comments Unknown Sex and Gender Information Value Date Recorded Sex Assigned at Not on file Legal Sex Female 4:03 AM URBAN ANTHROPOLOGIST Gender Identity Not on file Sexual Orientation [...] documented as of this encounter Care Teams Track Laminating Machine Tender Relationship Specialty Start Date End Date Nicole Blank MD [address] [phone] PCP - General Family Practice 10/02/13 documented as of this encounter
--- OUTSIDE RECORDS SUMMARY | 2025-03-01 06:24 | XMS_ITS | Encounter Summary ---
Author Organization [facility] Address [address] [place] [address] Care Team Providers Care Sheet Combining Operator Name Role Phone Nicole Blank MD Primary Care Provider Encounter Details Date Type Department Care Team (Latest Contact Info) Description 11/24/2002 Outpatient Historical [facility] Family Medicine [place] 104 [facility] 60 [place] [address] Teodoro Burt MD [address] [address] URIN TRACT INFECTION NOS (Primary Dx) Social History Tobacco Use Types Packs/Day Years Used Date Smoking Tobacco: Never Assessed Comments Unknown Sex and Gender Information Value Date Recorded Sex Assigned at Not on file Legal Sex Female 4:03 AM INVENTORY TECHNICIAN Gender Identity Not on file Sexual Orientation Not on file documented as of this encounter Plan of Treatment Not on file documented as of this encounter Visit Diagnoses Diagnosis Urinary tract infection, site not specified- Primary documented in this encounter Additional Health Concerns Infection Onset Date Last Indicated Resolved Time R/O COVID-19 04/27/2020 04/27/2020 04/29/2020 2:15 AM CDT R/O COVID-19 02/01/2021 02/01/202102/0102/01/2021 3:10 PM CDT documented as of this encounter Care Teams Sheet Combining Operator Relationship Specialty Start Date End Date Nicole Blank MD [address] [phone] PCP - General Family Practice 10/02/13 documented as of this encounter
--- OUTSIDE RECORDS SUMMARY | 2025-03-01 06:24 | XMS_ITS | Encounter Summary ---
Author Organization [facility] Address [address] [place] [address] Care Team Providers Care Fire Crew Specialist Name Role Phone Nicole Blank MD Primary Care Provider Encounter Details Date Type Department Care Team (Latest Contact Info) Description 05/16/2002 Outpatient Historical [facility] Family Medicine [place] [address] [facility] [address] [place] [address] Teodoro Burt MD [address] [address] HYPERLIPIDEMIA NEC/NOS (Primary Dx); VACCINE FOR INFLUENZA Social History Tobacco Use Types Packs/Day Years Used Date Smoking Tobacco: Never Assessed Comments Unknown Sex and Gender Information Value Date Recorded Sex Assigned at Not on file Legal Sex Female 4:03 AM NATUROPATH Gender Identity Not on file Sexual Orientation Not on file documented as of this encounter Plan of Treatment Not on file documented as of this encounter Visit Diagnoses Diagnosis Other and unspecified hyperlipidemia- Primary Need vaccination-viral disease Need for prophylactic vaccination and inoculation against other viral diseases documented in this encounter Additional Health Concerns Infection Onset Date Last Indicated Resolved Time R/O COVID-19 04/27/2020 04/27/2020 04/29/2020 2:15 AM CDT R/O COVID-19 02/01/2021 02/01/2021 02/01/2021 3:10 PM CDT documented as of this encounter Care Teams Fire Crew Specialist Relationship Specialty Start Date End Date Nicole Blank MD [address] [phone] PCP - General Family Practice 10/02/13 documented as of this encounter
--- OUTSIDE RECORDS SUMMARY | 2025-03-01 06:24 | XMS_ITS | Encounter Summary ---
Author Organization [facility] Address [address] [place] [address] Care Team Providers Care Installer Molding And Trim Name Role Phone Nicole Blank MD Primary Care Provider Encounter Details Date Type Department Care Team (Latest Contact Info) Description 10/15/2000 Outpatient Historical [facility] General and Trauma [facility] [address] [facility] [address] [place] [address] Abdominal or pelvic swelling, mass, or lump, left lower quadrant (Primary Dx) Social History Tobacco Use Types Packs/Day Years Used Date Smoking Tobacco: Never Assessed Comments Unknown Sex and Gender Information Value Date Recorded Sex Assigned at Not on file Legal Sex Female 4:03 AM PHOTOFINISHING LABORATORY WORKER Gender Identity Not on file Sexual Orientation Not on file documented as of this encounter Plan of Treatment Not on file documented as of this encounter Visit Diagnoses Diagnosis Abdominal or pelvic swelling, mass, or lump, left lower quadrant- Primary documented in this encounter Additional Health Concerns Infection Onset Date Last Indicated Resolved Time R/O COVID-19 04/27/2020 04/27/2020 04/29/2020 2:15 AM CDT R/O COVID-19 02/01/2021 02/01/2021 02/01/2021 3:10 PM CDT documented as of this encounter Care Teams Installer Molding And Trim Relationship Specialty Start Date End Date Nicole Blank MD [address] [address] PCP - General Family Practice 10/02/13 documented as of this encounter
--- OUTSIDE RECORDS SUMMARY | 2025-03-01 06:24 | XMS_ITS | Encounter Summary ---
Author Organization [facility] Address [address] [place] [address] Care Team Providers Care Seo Associate Name Role Phone Nicole Blank MD Primary Care Provider [phone] Encounter Details Date Type Department Care Team (Late st Contact Info) Description 06/01/2003 Outpatient Historical [facility] Medicine [address] [address] Shukri Teran DO NO ADDRESS ON FILE Social History Tobacco Use Types Packs/Day Years Used Date Smoking Tobacco: Never Assessed Comments Unknown Sex and Gender Information Value Date Recorded Sex Assigned at Not on file Legal Sex Female 4:03 AM INFORMATICIST Gender Identity Not on file Sexual Orientation [...] documented as of this encounter Care Teams Seo Associate Relationship Specialty Start Date End Date Nicole Blank MD [address] [address] PCP - General Family Practice 10/02/13 documented as of this encounter
--- OUTSIDE RECORDS SUMMARY | 2025-03-01 06:24 | XMS_ITS | Encounter Summary ---
Author Organization [facility] Address [address] [place] [address] Care Team Providers Care Automobile Body Worker Name Role Phone Nicole Blank MD Primary Care Provider [phone] Encounter Details Date Type Department Care Team (Latest Contact Info) Description 06/24/[address] [facility] Family Medicine [place] [address] [facility] [place] [address] Shukri Teran DO NO ADDRESS ON FILE ROUTINE COACH BUILDER EXAMINATION (Primary Dx); SCREENING MAL NEOP-RECTUM; HYPERTENSION NOS; VACCINE FOR STREP PNEUMONIAE Social History Tobacco Use Types Packs/Day Years Used Date Smoking Tobacco: Never Assessed Comments Unknown Sex and Gender Information Value Date Recorded Sex Assigned at Not on file Legal Sex Female 4:03 AM COKE STILL CLEANER Gender Identity Not on file Sexual Orientation Not on file documented as of this encounter Plan of Treatment Not on file documented as of this encounter Visit Diagnoses Diagnosis Routine gynecological examination- Primary Screening for malignant neoplasm of the rectum Unspecified essential hypertension Need for prophylactic vaccination against Streptococcus pneumoniae (pneumococcus) Need for prophylactic vaccination against streptococcus pneumoniae (pneumococcus) documented in this encounter Additional Health Concerns Infection Onset Date Last Indicated Resolved Time R/O COVID-19 04/27/2020 04/27/2020 04/29/2020 2:15 AM CDT R/O COVID-19 02/01/2021 02/01/2021 02/01/2021 3:10 PM CDT documented as of this encounter Care Teams Automobile Body Worker Relationship Specialty Start Date End Date Nicole Blank MD [address] [phone] PCP - General Family Practice 10/02/13 documented as of this encounter
--- OUTSIDE RECORDS SUMMARY | 2025-03-01 06:24 | XMS_ITS | Encounter Summary ---
Author Organization [facility] Address [address] [place] [address] Care Team Providers Care Airport Operations Duty Manager Name Role Phone Nicole Blank MD Primary Care Provider Encounter Details Date Type Department Care Team (Late st Contact Info) Description 09/13/2004 Outpatient Historical [facility] Medicine [address] [address] Social History Tobacco Use Types Packs/Day Years Used Date Smoking Tobacco: Never Assessed Comments Unknown Sex and Gender Information Value Date Recorded Sex Assigned at Not on file Legal Sex Female 4:03 AM SMALLTALK DEVELOPER Gender Identity Not on file Sexual Orientation [...] documented as of this encounter Care Teams Airport Operations Duty Manager Relationship Specialty Start Date End Date Nicole Blank MD [address] [phone] PCP - General Family Practice 10/02/13 documented as of this encounter
--- OUTSIDE RECORDS SUMMARY | 2025-03-01 06:25 | XMS_ITS | Encounter Summary ---
Author Organization [facility] Address [address] [place] [address] Care Team Providers Care Roll Dough Divider Name Role Phone Jordan Bautista MD Primary Care Provider [phone] Encounter Details Date Type Department Care Team (Late st Contact Info) Description 02/25/2025 External Device Data [facility] ABSTRACTION Provider, Abstract NO ADDRESS ON FILE Social History Tobacco Use Types Packs/Day Years Used Date Smoking Tobacco: Never Smokeless Tobacco: Never Alcohol Use Standard Drinks/Week Comments No 0 (1 standard drink = 0.6 oz pur e alcohol) Comments No Sex and Gender Information Value Date Recorded Sex Assigned at Not on file Legal Sex Female 4:28 AM COREMAKER MACHINE Gender Identity Not on file Sexual Orientation Not on file documented as of this encounter Plan of Treatment Upcoming Encounters Date Type Department Care Team (Late st Contact Info) Description 03/06/2025 9:00 AM CDT Office Visit [address] [address] Ramona Caballero FNP [address] [address] 04/10/2025 3:00 PM CDT Office Visit [address] [address] Jordan Bautista MD [address] [address] 05/21/2025 9:00 AM CDT Appointment [facility] Outpatient Services [place] [address] [address] 11/27/2025 8:00 AM CDT Office Visit [facility] Medicine [place] [address] [phone] Kelly Donohue, [facility] [address] [phone] documented as of this encounter Visit Diagnoses Not on filedocumented in this encounter Care Teams Roll Dough Divider Relationship Specialty Start Date End Date Jordan Bautista MD [address] [facility] [place] [address] PCP - General Family Practice 08/24/21 documented as of this encounter
--- OUTSIDE RECORDS SUMMARY | 2025-03-01 06:25 | XMS_ITS | Encounter Summary ---
Author Organization [facility] Address [address] [place] [address] Care Team Providers Care Rn Homecare Name Role Phone Nicole Blank MD Primary Care Provider Encounter Details Date Type Department Care Team (Latest Contact Info) Description 06/22/1999 Outpatient Historical [facility] Family Medicine [place] [address] [facility] 60 [place] [address] Shukri Teran DO NO ADDRESS ON FILE Other and unspecified hyperlipidemia (Primary Dx) Social History Tobacco Use Types Packs/Day Years Used Date Smoking Tobacco: Never Assessed Comments Unknown Sex and Gender Information Value Date Recorded Sex Assigned at Not on file Legal Sex Female 4:03 AM TREATMENT SUPERVISOR Gender Identity Not on file Sexual Orientation [...] documented as of this encounter Care Teams Rn Homecare Relationship Specialty Start Date End Date iNcole Blank MD [address] [phone] PCP - General Family Practice 10/02/13 documented as of this encounter
--- OUTSIDE RECORDS SUMMARY | 2025-03-01 06:25 | XMS_ITS | Encounter Summary ---
Author Organization [facility] Address [address] [place] [address] Care Team Providers Care Scale Installer Name Role Phone Nicole Blank MD Primary Care Provider Encounter Details Date Type Department Care Team (Late st Contact Info) Description 04/04/2004 Outpatient Historical [facility] Medicine [address] [address] Social History Tobacco Use Types Packs/Day Years Used Date Smoking Tobacco: Never Assessed Comments Unknown Sex and Gender Information Value Date Recorded Sex Assigned at Not on file Legal Sex Female 4:03 AM FINISHING DEPARTMENT SUPERVISOR Gender Identity Not on file Sexual [...] documented as of this encounter Care Teams Scale Installer Relationship Specialty Start Date End Date Nicole Blank MD [address] [address] PCP - General Family Practice 10/02/13 documented as of this encounter
--- OUTSIDE RECORDS SUMMARY | 2025-03-01 06:25 | XMS_ITS | Encounter Summary ---
Author Organization [facility] Address [address] [place] [address] Care Team Providers Care Software Test Engineer Name Role Phone Jordan Bautista MD Primary Care Provider [phone] Encounter Details Date Type Department Care Team (Late Contact Info) Description 09/10/2021 Digital Self COVID-1 9 Monitoring [facility] ABSTRACTION Provider, Abstract NO ADDRESS ON FILE Social History Tobacco Use Types Packs/Day Years Used Date Smoking Tobacco: Never Smokeless Tobacco: Never Alcohol Use Standard Drinks/Week Comments No 0 (1 standard drink = 0.6 oz pur e alcohol) Comments No Sex and Gender Information Value Date Recorded Sex Assigned at Not on file Legal Sex Female 4:28 AM BOTTLE BOOTH ATTENDANT Gender Identity Not on file Sexual Orientation Not on file COVID-19 Exposure Response Date Recorded In the last month, have you been in contact with someone who was confirmed or suspected to have Coronavirus / COVID-19? Unable to assess 09/12/2021 1:14 PM BOTTLE BOOTH ATTENDANT documented as of this encounter Plan of Treatment Upcoming Encounters Date Type Department Care Team (Late Contact Info) Description 03/06/2025 9:00 AM CDT Office Visit [facility] Family Medicine [place] [address] [address] Ramona Caballero FNP [address] [address] 04/10/2025 3:00 PM CDT Office Visit [facility] [address] [place] [address] Jordan Bautista MD [address] [place] [phone] 05/21/2025 9:00 AM CDT Appointment [facility] [address] [place] [phone] 11/27/2025 8:00 AM CDT Office Visit [facility] [address] [place] [address] Kelly Donohue, [facility] [address] [place] [address] documented as of this encounter Visit Diagnoses Not on filedocumented in this encounter Additional Health Concerns Infection Onset Date Last Indicated Resolved Time R/O COVID-19 09/22/2024 09/22/2024 09/23/2024 8:27 AM BOTTLE BOOTH ATTENDANT COVID-19 10/27/2024 10/27/2024 11/16/2024 1:16 AM CDT documented as of this encounter Care Teams Software Test Engineer Relationship Specialty Start Date End Date Jordan Bautista MD [address] [facility] [place] [address] PCP - General Family Practice 08/24/21 documented as of this encounter
--- OUTSIDE RECORDS SUMMARY | 2025-03-01 06:25 | XMS_ITS | Encounter Summary ---
Author Organization [facility] Address [address] [place] [address] Care Team Providers Care Shear Operator Automatic Name Role Phone Nicole Blank MD Primary Care Provider Encounter Details Date Type Department Care Team (Late st Contact Info) Description 07/29/2007 Outpatient Historical [facility] Medicine [address] [address] Shukri Teran DO NO ADDRESS ON FILE Social History Tobacco Use Types Packs/Day Years Used Date Smoking Tobacco: Never Assessed Comments Unknown Sex and Gender Information Value Date Recorded Sex Assigned at Not on file Legal Sex Female 4:03 AM BROADCAST SYSTEMS ENGINEER Gender Identity Not on file Sexual [...] documented as of this encounter Care Teams Shear Operator Automatic Relationship Specialty Start Date End Date Nicole Blank MD [address] [address] PCP - General Family Practice 10/02/13 documented as of this encounter
--- OUTSIDE RECORDS SUMMARY | 2025-03-01 06:25 | XMS_ITS | Encounter Summary ---
Author Organization [facility] Address [address] [place] [address] Care Team Providers Care Information Management Specialist Name Role Phone Nicole Blank MD Primary Care Provider Encounter Details Date Type Department Care Team (Latest Contact Info) Description 09/03/2006 Outpatient Historical [facility] Family Medicine [place] [address] [facility] [address] [place] [address] Miguel Zelaya NP NO ADDRESS ON FILE Acute Pharyngitis (Primary Dx); Postnasal Drip Social History Tobacco Use Types Packs/Day Years Used Date Smoking Tobacco: Never Assessed Comments Unknown Sex and Gender Information Value Date Recorded Sex Assigned at Not on file Legal Sex Female 4:03 AM OBSTETRICS NURSE Gender Identity Not on file Sexual Orientation Not on file documented as of this encounter Plan of Treatment Not on file documented as of this encounter Visit Diagnoses Diagnosis Acute pharyngitis- Primary Postnasal drip documented in this encounter Additional Health Concerns Infection Onset Date Last Indicated Resolved Time R/O COVID-19 04/27/2020 04/27/2020 04/29/2020 2:15 AM CDT R/O COVID-19 02/01/2021 02/01/2021 02/01/2021 3:10 PM CDT documented as of this encounter Care Teams Information Management Specialist Relationship Specialty Start Date End Date Nicole Blank MD [address] [address] PCP - General Family Practice 10/02/13 documented as of this encounter
--- OUTSIDE RECORDS SUMMARY | 2025-03-01 06:25 | XMS_ITS | Encounter Summary ---
Author Organization [facility] Address [address] [place] [address] Care Team Providers Care Doctor Of Osteopathy Name Role Phone Nicole Blank MD Primary Care Provider Encounter Details Date Type Department Care Team (Latest Contact Info) Description 09/21/[address] [facility] Medicine [place] [address] [facility] 60 [place] [address] Shukri Teran DO NO ADDRESS ON FILE Other and unspecified hyperlipidemia (Primary Dx) Social History Tobacco Use Types Packs/Day Years Used Date Smoking Tobacco: Never Assessed Comments Unknown Sex and Gender Information Value Date Recorded Sex Assigned at Not on file Legal Sex Female 4:03 AM AUTO BODY REPAIRER FIBERGLASS Gender Identity Not on file Sexual Orientation [...] documented as of this encounter Care Teams Doctor Of Osteopathy Relationship Specialty Start Date End Date Nicole Blank MD [address] [phone] PCP - General Family Practice 10/02/13 documented as of this encounter
--- OUTSIDE RECORDS SUMMARY | 2025-03-01 06:25 | XMS_ITS | Encounter Summary ---
Author Organization [facility] Address [address] [place] [address] Care Team Providers Care Manager Resource Name Role Phone Nicole Blank MD Primary Care Provider [phone] Encounter Details Date Type Department Care Team (Latest Contact Info) Description 04/09/2000 Outpatient Historical [facility] Medicine [place] [address] [facility] 60 [place] [address] Shukri Teran DO NO ADDRESS ON FILE Symptomatic menopausal or female climacteric states (Primary Dx); Screening for malignant neoplasm of the cervix; Screening for malignant neoplasm of the rectum Social History Tobacco Use Types Packs/Day Years Used Date Smoking Tobacco: Never Assessed Comments Unknown Sex and Gender Information Value Date Recorded Sex Assigned at Not on file Legal Sex Female 4:03 AM LOCATION ANALYST Gender Identity Not on file Sexual Orientation Not on file documented as of this encounter Plan of Treatment Not on file documented as of this encounter Visit Diagnoses Diagnosis Symptomatic menopausal or female climacteric states- Primary Screening for malignant neoplasm of the cervix Screening for malignant neoplasm of the rectum documented in this encounter Additional Health Concerns Infection Onset Date Last Indicated Resolved Time R/O COVID-19 04/27/2020 04/27/2020 04/29/2020 2:15 AM CDT R/O COVID-19 02/01/2021 02/01/2021 02/01/2021 3:10 PM CDT documented as of this encounter Care Teams Manager Resource Relationship Specialty Start Date End Date Nicole Blank MD [address] [phone] PCP - General Family Practice 10/02/13 documented as of this encounter
--- OUTSIDE RECORDS SUMMARY | 2025-03-01 06:25 | XMS_ITS | Encounter Summary ---
Author Organization [facility] Address [address] [place] [address] Care Team Providers Care Incident Handler Name Role Phone Jordan Bautista MD Primary Care Provider [phone] Encounter Details Date Type Department Care Team (Late Contact Info) Description 09/05/2021 Digital Self COVID-1 9 Monitoring [facility] ABSTRACTION [...] on file Legal Sex Female 4:28 AM GLASSWARE FINISHER Gender Identity Not on file Sexual Orientation Not on file COVID-19 Exposure Response Date Recorded In the last month, have you been in contact with someone who was confirmed or suspected to have Coronavirus / COVID-19? No / Unsure 08/31/2021 11:21 AM GLASSWARE FINISHER documented as of this encounter Plan of Treatment Upcoming Encounters Date Type Department Care Team (Late Contact Info) Description 03/06/2025 9:00 AM CDT Office Visit [facility] [address] [address] Ramona Caballero FNP [address] [address] 04/10/2025 3:00 PM CDT Office Visit [facility] [address] [place] [address] Jordan Bautista MD [address] [place] [phone] 05/21/2025 9:00 AM CDT Appointment [facility] [address] [place] [phone] 11/27/2025 8:00 AM CDT Office Visit [facility] [address] [place] [phone] Kelly Donohue, [facility] [address] [place] [phone] documented as of this encounter Visit Diagnoses Not on filedocumented in this encounter Additional Health Concerns Infection Onset Date Last Indicated Resolved Time R/O COVID-19 09/22/2024 09/22/2024 09/23/2024 8:27 AM GLASSWARE FINISHER COVID-19 10/27/2024 10/27/2024 11/16/2024 1:16 AM CDT documented as of this encounter Care Teams Incident Handler Relationship Specialty Start Date End Date Jordan Bautista MD [address] [facility] [place] [address] PCP - General Family Practice 08/24/21 documented as of this encounter
--- OUTSIDE RECORDS SUMMARY | 2025-03-01 06:25 | XMS_ITS | Encounter Summary ---
Author Organization [facility] Address [address] [place] [address] Care Team Providers Care Circuit Court Clerk Name Role Phone Nicole Blank MD Primary Care Provider [phone] Reason for Referral * Radiology Services (Routine) - Closed Specialty Diagnoses / Procedures Referred By Contac t Referred To Contact Radiology Diagnoses Breast cancer screening by mammogram Procedures MAMMO SCREEN BILAT W OR WO CAD Francisco Hensley PA [facility] Mammography [place] [address] [facility] 60 [place] [address] Phone: tel: fax: Referral ID Status Reason Start Date Expiration Date Visits Re quested Visits Authorized [id number] Closed 06/25/2019 07/25/2020 1 1 RT/EXPORT SPECIALIST Encounter Details Date Type Department Care Team (Latest Contact Info) Description 06/25/2019 Ancillary Orders [facility] Scheduling [address] [facility] 60 [place] [address] Francisco Hensley PA NO ADDRESS ON FILE Breast cancer screening by mammogram Social History Tobacco Use Types Packs/Day Years Used Date Smoking Tobacco: Never Smokeless Tobacco: Never Alcohol Use Standard Drinks/Week Comments No 0 (1 standard drink = 0.6 oz pur e alcohol) Comments No Sex and Gender Information Value Date Recorded Sex Assigned at Not on file Legal Sex Female 4:03 AM IMPORT/EXPORT SPECIALIST Gender Identity Not on file Sexual Orientation Not on file Occupation Industry Job Start Date Job End Date Not on file Not on file Not on file Not on file Not on file Not on file Not on file Not on file documented as of this encounter Plan of Treatment Not on file documented as of this encounter Results * MAMMO SCREEN BILAT W OR WO CAD (07/23/2019 9:33 AM IMPORT/EXPORT SPECIALIST) Anatomical Region Laterality Modality Breast Bilateral Mammography Narrative 07/24/2019 9:33 AM IMPORT/EXPORT SPECIALIST Bilateral Mammogram Reason for Exam: Screening Comparison: Compared to: 06/19/2018 MAMMO SCREEN BILAT W OR WO CAD, 06/13/2017 MAMMO SCREEN BILAT W OR WO CAD, 06/07/2016 MAMMO DIGITAL SCREEN BILAT, 06/02/2015 MAMMO DIGITAL SCREEN BILAT, 03/18/2014 MAMMO DIGITAL SCREEN BILAT, 02/13/2012 MAMMO DIGITAL SCREEN BILAT, and 02/07/2011 MAMMO DIGITIZED STUDY Findings: Bilateral CC and MLO views were obtained. This examination was reviewed with the aid of a computer-aided detection system(CAD). Breast Composition: There are scattered areas of fibroglandular density. There are no suspicious masses, areas of architectural distortions, or microcalcifications to suggest malignancy. No significant new findings since the prior mammogram(s). Impression: Negative screening mammogram. Recommendation: Routine annual follow-up Overall Assessment: Birads Category 2: Negative Francisco MCKENNA MAMMO ORDERABLES Final Result documented in this encounter Visit Diagnoses Diagnosis Breast cancer screening by mammogram Breast cancer screening by mammogram documented in this encounter Additional Health Concerns Infection Onset Date Last Indicated Resolved Time R/O COVID-19 04/27/2020 04/27/2020 04/29/2020 2:15 AM CDT R/O COVID-19 02/01/2021 02/01/2021 02/01/2021 3:10 PM CDT documented as of this encounter Care Teams Circuit Court Clerk Relationship Specialty Start Date End Date Nicole Blank MD [address] [phone] PCP - General Family Practice 10/02/13 documented as of this encounter
--- OUTSIDE RECORDS SUMMARY | 2025-03-01 06:25 | XMS_ITS | Encounter Summary ---
Author Organization [facility] Address [address] [place] [address] Care Team Providers Care Associate Professor Of Counseling Name Role Phone Jordan Bautista MD Primary Care Provider [phone] Encounter Details Date Type Department Care Team (Late Contact Info) Description 09/12/2021 Digital Self COVID-1 9 Monitoring [facility] ABSTRACTION [...] on file Legal Sex Female 4:28 AM EMPLOYEE DEVELOPMENT SPECIALIST Gender Identity Not on file Sexual Orientation Not on file COVID-19 Exposure Response Date Recorded In the last month, have you been in contact with someone who was confirmed or suspected to have Coronavirus / COVID-19? Unable to assess 09/12/2021 1:14 PM EMPLOYEE DEVELOPMENT SPECIALIST documented as of this encounter Plan of Treatment Upcoming Encounters Date Type Department Care Team (Late Contact Info) Description 03/06/2025 9:00 AM CDT Office Visit [facility] Family Medicine [place] [address] [address] Ramona Caballero FNP [address] [address] 04/10/2025 3:00 PM CDT Office Visit [facility] [address] [place] [address] Jordan Bautista MD [address] [place] [address] 05/21/2025 9:00 AM CDT Appointment [facility] [address] [place] [address] 11/27/2025 8:00 AM CDT Office Visit [facility] [address] [place] [address] Kelly Donohue, [facility] [address] [place] [address] documented as of this encounter Visit Diagnoses Not on filedocumented in this encounter Additional Health Concerns Infection Onset Date Last Indicated Resolved Time R/O COVID-19 09/22/2024 09/22/2024 09/23/2024 8:27 AM EMPLOYEE DEVELOPMENT SPECIALIST COVID-19 10/27/2024 10/27/2024 11/16/2024 1:16 AM CDT documented as of this encounter Care Teams Associate Professor Of Counseling Relationship Specialty Start Date End Date Jordan Bautista MD [address] [facility] [place] [address] PCP - General Family Practice 08/24/21 documented as of this encounter
--- OUTSIDE RECORDS SUMMARY | 2025-03-01 06:25 | XMS_ITS | Encounter Summary ---
Author Organization [facility] Address [address] [place] [address] Care Team Providers Care Farmer Diversified Crops Name Role Phone Nicole Blank MD Primary Care Provider [phone] Encounter Details Date Type Department Care Team (Latest Contact Info) Description 09/12/[address] [facility] Family Medicine [place] 104 [facility] 60 [place] [address] Shukri Teran DO NO ADDRESS ON FILE Acute upper respiratory infections of unspecified site (Primary Dx) Social History Tobacco Use Types Packs/Day Years Used Date Smoking Tobacco: Never Assessed Comments Unknown Sex and Gender Information Value Date Recorded Sex Assigned at Not on file Legal Sex Female 4:03 AM CODING VALIDATOR Gender Identity Not on file Sexual Orientation Not on file documented as of this encounter Plan of Treatment Not on file documented as of this encounter Visit Diagnoses Diagnosis Acute upper respiratory infections of unspecified site- Primary documented in this encounter Additional Health Concerns Infection Onset Date Last Indicated Resolved Time R/O COVID-19 04/27/2020 04/27/2020 04/29/2020 2:15 AM CDT R/O COVID-19 02/01/2021 02/01/2021 02/01/2021 3:10 PM CDT documented as of this encounter Care Teams Farmer Diversified Crops Relationship Specialty Start Date End Date Nicole Blank MD [address] [address] PCP - General Family Practice 10/02/13 documented as of this encounter
--- OUTSIDE RECORDS SUMMARY | 2025-03-01 06:25 | XMS_ITS | Encounter Summary ---
Author Organization [facility] Address [address] [place] [address] Care Team Providers Care Stationary Engineer Refrigeration Name Role Phone Nicole Blank MD Primary Care Provider Encounter Details Date Type Department Care Team (Latest Contact Info) Description 10/01/2000 Outpatient Historical [facility] Family Medicine [place] 104 [facility] 60 [place] [address] Teodoro Burt MD [address] [address] Abdominal pain, unspecified site (Primary Dx) Social History Tobacco Use Types Packs/Day Years Used Date Smoking Tobacco: Never Assessed Comments Unknown Sex and Gender Information Value Date Recorded Sex Assigned at Not on file Legal Sex Female 4:03 AM CONCENTRATOR OPERATOR Gender Identity Not on file Sexual [...] documented as of this encounter Care Teams Stationary Engineer Refrigeration Relationship Specialty Start Date End Date Nicole Blank MD [address] [phone] PCP - General Family Practice 10/02/13 documented as of this encounter
--- OUTSIDE RECORDS SUMMARY | 2025-03-01 06:25 | XMS_ITS | Encounter Summary ---
Author Organization [facility] Address [address] [place] [address] Care Team Providers Care Resaw Carriage Operator Name Role Phone Nicole Blank MD Primary Care Provider Encounter Details Date Type Department Care Team (Latest Contact Info) Description 11/12/2003 Outpatient Historical [facility] Family Medicine [place] [address] [facility] 60 [place] [address] Zoe Hernandez MD NO ADDRESS ON FILE ACUTE URI NOS (Primary Dx); ACUTE BRONCHITIS Social History Tobacco Use Types Packs/Day Years Used Date Smoking Tobacco: Never Assessed Comments Unknown Sex and Gender Information Value Date Recorded Sex Assigned at Not on file Legal Sex Female 4:03 AM HAND EDGER Gender Identity Not on file Sexual Orientation Not on file documented as of this encounter Plan of Treatment Not on file documented as of this encounter Visit Diagnoses Diagnosis Acute upper respiratory infections of unspecified site- Primary Acute bronchitis documented in this encounter Additional Health Concerns Infection Onset Date Last Indicated Resolved Time R/O COVID-19 04/27/2020 04/27/2020 04/29/2020 2:15 AM CDT R/O COVID-19 02/01/2021 02/01/2021 02/01/2021 3:10 PM CDT documented as of this encounter Care Teams Resaw Carriage Operator Relationship Specialty Start Date End Date Nicole Blank MD [address] [address] PCP - General Family Practice 10/02/13 documented as of this encounter
--- OUTSIDE RECORDS SUMMARY | 2025-03-01 06:25 | XMS_ITS | Encounter Summary ---
Author Organization [facility] Address [address] [place] [address] Care Team Providers Care Medical Researcher Name Role Phone Nicole Blank MD Primary Care Provider Encounter Details Date Type Department Care Team (Latest Contact Info) Description 05/18/2005 Outpatient Historical [facility] Family Medicine [place] [address] [facility] 60 [place] [phone] Zoe Hernandez MD NO ADDRESS ON FILE Vaccine for influenza (Primary Dx) Social History Tobacco Use Types Packs/Day Years Used Date Smoking Tobacco: Never Assessed Comments Unknown Sex and Gender Information Value Date Recorded Sex Assigned at Not on file Legal Sex Female 4:03 AM ANALYTICS ANALYST Gender Identity Not on file Sexual Orientation Not on file documented as of this encounter Plan of Treatment Not on file documented as of this encounter Visit Diagnoses Diagnosis Vaccine for influenza- Primary Need for prophylactic vaccination and inoculation against influenza documented in this encounter Additional Health Concerns Infection Onset Date Last Indicated Resolved Time R/O COVID-19 04/27/2020 04/27/2020 04/29/2020 2:15 AM CDT R/O COVID-19 02/01/2021 02/01/2021 02/01/2021 3:10 PM CDT documented as of this encounter Care Teams Medical Researcher Relationship Specialty Start Date End Date Nicole Blank MD [address] [address] PCP - General Family Practice 10/02/13 documented as of this encounter
--- OUTSIDE RECORDS SUMMARY | 2025-03-01 06:25 | XMS_ITS | Encounter Summary ---
Author Organization [facility] Address [address] [place] [address] Care Team Providers Care Obiee Obia Solution Architect Name Role Phone Nicole Blank MD Primary Care Provider Reason for Referral * Outpatient Services (Routine) - Closed Specialty Diagnoses / Procedures Referred By Carlee cordova Referred To Contact Radiology Diagnoses Visit for screening mammogram Procedures MAMMO DIGITIZED STUDY Shukri Teran DO NO ADDRESS ON FILE [facility] [address] [facility] 60 [place] [address] Phone: tel: fax: Referral ID Status Reason Start Date Expiration Date Visits Re quested Visits Authorized [id number] Closed 02/13/2012 02/12/2013 1 1 Encounter Details Date Type Department Care Team (Late st Contact Info) Description 02/13/2012 Ancillary Orders [facility] Medicine [place] 104 [facility] 60 [place] [address] Shukri Teran DO NO ADDRESS ON FILE Visit for screening mammogram Social History Tobacco Use Types Packs/Day Years Used Date Smoking Tobacco: Never Smokeless Tobacco: Never Alcohol Use Standard Drinks/Week Comments No 0 (1 standard drink = 0.6 oz pur e alcohol) Comments No Sex and Gender Information Value Date Recorded Sex Assigned at Not on file Legal Sex Female 4:03 AM COOK BOX FILLER Gender Identity Not on file Sexual Orientation Not on file Occupation Industry Job Start Date Job End Date Not on file Not on file Not on file Not on file documented as of this encounter Plan of Treatment Not on file documented as of this encounter Results * MAMMO DIGITIZED STUDY (09/21/2005 10:43 AM COOK BOX FILLER) Narrative Sheila Soares, RT - 02/13/2012 10:44 AM CDT Order information only. Exam was auto-finalized. Procedure Note Sheila Soares, RT - 02/13/2012 Order information only. Exam was auto-finalized. Shukri Teran DO DIAGNOSTIC IMAGING ORDERABLES F inal Result documented in this encounter Visit Diagnoses Diagnosis Visit for screening mammogram Other screening mammogram documented in this encounter Additional Health Concerns Infection Onset Date Last Indicated Resolved Time R/O COVID-19 04/27/2020 04/27/2020 04/29/2020 2:15 AM CDT R/O COVID-19 02/01/2021 02/01/2021 02/01/2021 3:10 PM CDT documented as of this encounter Care Teams Obiee Obia Solution Architect Relationship Specialty Start Date End Date Nicole Blank MD [address] [address] PCP - General Family Practice 10/02/13 documented as of this encounter
--- OUTSIDE RECORDS SUMMARY | 2025-03-01 06:25 | XMS_ITS | Encounter Summary ---
Author Organization [facility] Address [address] [place] [address] Care Team Providers Care Computer Tester Name Role Phone Jordan Bautitsa MD Primary Care Provider [phone] Encounter Details Date Type Department Care Team (Late Contact Info) Description 09/04/2021 Digital Self COVID-1 9 Monitoring ST[facility] ABSTRACTION [...] on file Legal Sex Female 4:28 AM SUPERINTENDENT STEVEDORING Gender Identity Not on file Sexual Orientation Not on file COVID-19 Exposure Response Date Recorded In the last month, have you been in contact with someone who was confirmed or suspected to have Coronavirus / COVID-19? No / Unsure 08/31/2021 11:21 AM SUPERINTENDENT STEVEDORING documented as of this encounter Plan of Treatment Upcoming Encounters Date Type Department Care Team (Late Contact Info) Description 03/06/2025 9:00 AM CDT Office Visit [facility] [address] [address] Ramona Caballero FNP [address] [address] 04/10/2025 3:00 PM CDT Office Visit [facility] [address] [place] [address] Jordan Bautista MD [address] [place] [address] 05/21/2025 9:00 AM CDT Appointment [facility] [address] [place] [address] 11/27/2025 8:00 AM CDT Office Visit [facility] [address] [place] [address] Kelly Donohue, [facility] [address] [place] [address] documented as of this encounter Visit Diagnoses Not on filedocumented in this encounter Additional Health Concerns Infection Onset Date Last Indicated Resolved Time R/O COVID-19 09/22/2024 09/22/2024 09/23/2024 8:27 AM SUPERINTENDENT STEVEDORING COVID-19 10/27/2024 10/27/2024 11/16/2024 1:16 AM CDT documented as of this encounter Care Teams Computer Tester Relationship Specialty Start Date End Date Jordan Bautista MD [address] [facility] [place] [address] PCP - General Family Practice 08/24/21 documented as of this encounter
--- OUTSIDE RECORDS SUMMARY | 2025-03-01 06:25 | XMS_ITS | Encounter Summary ---
Author Organization [facility] Address [address] [place] [address] Care Team Providers Care Coal Picker Name Role Phone Nicole Blank MD Primary Care Provider Encounter Details Date Type Department Care Team (Latest Contact Info) Description 12/18/2006 Outpatient Historical [facility] Medicine [place] 104 [address] [facility] 60 [place] [address] Shukri Teran DO NO ADDRESS ON FILE Other and Unspecified Hyperlipidemia (Primary Dx) Social History Tobacco Use Types Packs/Day Years Used Date Smoking Tobacco: Never Assessed Comments Unknown Sex and Gender Information Value Date Recorded Sex Assigned at Not on file Legal Sex Female 4:03 AM NEUROPHYSIOLOGY TECH Gender Identity Not on file Sexual [...] documented as of this encounter Care Teams Coal Picker Relationship Specialty Start Date End Date Nicole Blank MD [address] [phone] PCP - General Family Practice 10/02/13 documented as of this encounter
--- OUTSIDE RECORDS SUMMARY | 2025-03-01 06:25 | XMS_ITS | Encounter Summary ---
Author Organization [facility] Address [address] [place] [address] Care Team Providers Care Recreation Supervisor Name Role Phone Jordan Bautista MD Primary Care Provider [phone] Encounter Details Date Type Department Care Team (Late Contact Info) Description 09/06/2021 Digital Self COVID-1 9 Monitoring STL ABSTRACTION [...] on file Legal Sex Female 4:28 AM ATHLETIC TEAM PHYSICIAN Gender Identity Not on file Sexual Orientation Not on file COVID-19 Exposure Response Date Recorded In the last month, have you been in contact with someone who was confirmed or suspected to have Coronavirus / COVID-19? No / Unsure 08/31/2021 11:21 AM ATHLETIC TEAM PHYSICIAN documented as of this encounter Plan of Treatment Upcoming Encounters Date Type Department Care Team (Late Contact Info) Description 03/06/2025 9:00 AM CDT Office Visit [facility] [address] [address] Ramona Caballero FNP [address] [address] 04/10/2025 3:00 PM CDT Office Visit [facility] [address] [place] [address] Jordan Bautista MD [address] [place] [address] 05/21/2025 9:00 AM CDT Appointment [facility] [address] [place] [address] 11/27/2025 8:00 AM CDT Office Visit [facility] [address] [place] [address] Kelly Donohue, [facility] [address] [place] [address] documented as of this encounter Visit Diagnoses Not on filedocumented in this encounter Additional Health Concerns Infection Onset Date Last Indicated Resolved Time R/O COVID-19 09/22/2024 09/22/2024 09/23/2024 8:27 AM ATHLETIC TEAM PHYSICIAN COVID-19 10/27/2024 10/27/2024 11/16/2024 1:16 AM CDT documented as of this encounter Care Teams Recreation Supervisor Relationship Specialty Start Date End Date Jordan Bautista MD [address] [facility] [place] [address] PCP - General Family Practice 08/24/21 documented as of this encounter
--- OUTSIDE RECORDS SUMMARY | 2025-03-01 06:25 | XMS_ITS | Encounter Summary ---
Author Organization [facility] Address [address] [place] [address] Care Team Providers Care Epic Professional Name Role Phone Jordan Bautista MD Primary Care Provider [phone] Reason for Visit * Reason Comments Results Encounter Details Date Type Department Care Team (Late st Contact Info) Description 02/24/2025 Telephone [facility] Family Medicine [address] [address] Jordan Bautista MD [address] [address] Results Social History Tobacco Use Types Packs/Day Years Used Date Smoking Tobacco: Never Smokeless Tobacco: Never Alcohol Use Standard Drinks/Week Comments No 0 (1 standard drink = 0.6 oz pur e alcohol) Comments No Sex and Gender Information Value Date Recorded Sex Assigned at Not on file Legal Sex Female 4:28 AM DOT NET DEVELOPER Gender Identity Not on file Sexual Orientation Not on file documented as of this encounter Miscellaneous Notes * Telephone Encounter - Maritza Jaime RN - 02/24/2025 9:51 AM CDT 02/24/2025 9:51 AM Returned call and spoke with patient. Advised patient that last A1C that was done in November 2024 was7.1 Voiced understanding. Maritza DALEY * Telephone Encounter - Blanco Artur Corin - 02/24/2025 9:47 AM CDT Copied from [facility] #[id number]. Topic: CPA Information Request - Results >> Feb 24, 2025 9:45 AM Artur Glez wrote: Caller is requesting information about results from an order. ? Caller Name: Omayra Ryan Callback Number: [phone] Test Name: A1C Patient is needing the results of the A1C to take to the eye dr for her appointment tomorrow Please call back to discuss Results Encounter notes are: Telephone encounter related to results is not available and was completed less than 7 days Call Notes: Results were not given and the patient needs a call back documented in this encounter Plan of Treatment Upcoming Encounters Date Type Department Care Team (Late st Contact Info) Description 03/06/2025 9:00 AM CDT Office Visit [facility] [address] [phone] Ramona Caballero, [facility] [address] [address] 04/10/2025 3:00 PM CDT Office Visit [facility] [address] [phone] Jordan Bautista MD [address] [phone] 05/21/2025 9:00 AM CDT Appointment [facility] [place] [address] [phone] 11/27/2025 8:00 AM CDT Office Visit [facility] [address] [phone] Kelly Donohue, [facility] [address] [address] documented as of this encounter Visit Diagnoses Not on filedocumented in this encounter Care Teams Epic Professional Relationship Specialty Start Date End Date Jordan Bautista MD [address] [facility] [place] [address] PCP - General Family Practice 08/24/21 documented as of this encounter
--- OUTSIDE RECORDS SUMMARY | 2025-03-01 06:25 | XMS_ITS | Encounter Summary ---
Author Organization [facility] Address [address] [place] [address] Care Team Providers Care Dial Painter Name Role Phone Jordan Bautista MD Primary Care Provider [phone] Encounter Details Date Type Department Care Team [...] on file Legal Sex Female 4:28 AM GRE TUTOR Gender Identity Not on file Sexual Orientation Not on file COVID-19 Exposure Response Date Recorded In the last month, have you been in contact with someone who was confirmed or suspected to have Coronavirus / COVID-19? No / Unsure 08/31/2021 11:21 AM GRE TUTOR documented as of this encounter Plan of Treatment Upcoming Encounters Date Type Department Care Team (Late Contact Info) Description 03/06/2025 9:00 AM CDT Office Visit [facility] [address] [address] Ramona Caballero FNP [address] [address] 04/10/2025 3:00 PM CDT Office Visit [facility] [address] [place] [address] Jordan Bautista MD [address] [place] [phone] 05/21/2025 9:00 AM CDT Appointment [facility] [address] [place] [phone] 11/27/2025 8:00 AM CDT Office Visit [facility] [address] [place] [phone] Kelly Donohue, [facility] [address] [place] [phone] documented as of this encounter Visit Diagnoses Not on filedocumented in this encounter Additional Health Concerns Infection Onset Date Last Indicated Resolved Time R/O COVID-19 09/22/2024 09/22/2024 09/23/2024 8:27 AM GRE TUTOR COVID-19 10/27/2024 10/27/2024 11/16/2024 1:16 AM CDT documented as of this encounter Care Teams Dial Painter Relationship Specialty Start Date End Date Jordan Bautista MD [address] [facility] [address] PCP - General Family Practice 08/24/21 documented as of this encounter
--- OUTSIDE RECORDS SUMMARY | 2025-03-01 06:25 | XMS_ITS | Encounter Summary ---
Author Organization [facility] Address [address] [place] [address] Care Team Providers Care Human Performance Technologist Name Role Phone Nicole Blank MD Primary Care Provider [phone] Encounter Details Date Type Department Care Team (Latest Contact Info) Description 10/01/2000 Outpatient Historical [facility] [address] [address] [address] [place] [address] [place] [address] [facility] [address] [place] [address] Other and unspecified noninfectious gastroenteritis and colitis(558.9) (Primary Dx) Social History Tobacco Use Types Packs/Day Years Used Date Smoking Tobacco: Never Assessed Comments Unknown Sex and Gender Information Value Date Recorded Sex Assigned at Not on file Legal Sex Female 4:03 AM COMPLIANCE QUALITY PERFORMANCE ANALYST Gender Identity Not on file Sexual Orientation Not on file documented as of this encounter Plan of Treatment Not on file documented as of this encounter Visit Diagnoses Diagnosis Other and unspecified noninfectious gastroenteritis and colitis(558.9)- Primary Other and unspecified noninfectious gastroenteritis and colitis documented in this encounter Additional Health Concerns Infection Onset Date Last Indicated Resolved Time R/O COVID-19 04/27/2020 04/27/2020 04/29/2020 2:15 AM CDT R/O COVID-19 02/01/2021 02/01/2021 02/01/2021 3:10 PM CDT documented as of this encounter Care Teams Human Performance Technologist Relationship Specialty Start Date End Date Nicole Blank MD [address] [phone] PCP - General Family Practice 10/02/13 documented as of this encounter
--- OUTSIDE RECORDS SUMMARY | 2025-03-01 06:25 | XMS_ITS | Encounter Summary ---
Author Organization [facility] Address [address] [place] [address] Care Team Providers Care Patent Paralegal Name Role Phone Nicole Blank MD Primary Care Provider [phone] Encounter Details Date Type Department Care Team (Latest Contact Info) Description 12/04/2005 Outpatient Historical [facility] [place] [address] [facility] [address] [place] [address] Shukri Teran DO NO ADDRESS ON FILE Electrolyte and Fluid Disorders not Elsewhere Classified (Primary Dx); Other and Unspecified Hyperlipidemia; Unspecified Essential Hypertension Social History Tobacco Use Types Packs/Day Years Used Date Smoking Tobacco: Never Assessed Comments Unknown Sex and Gender Information Value Date Recorded Sex Assigned at Not on file Legal Sex Female 4:03 AM BRUSH MAKER Gender Identity Not on file Sexual Orientation Not on file documented as of this encounter Plan of Treatment Not on file documented as of this encounter Visit Diagnoses Diagnosis Electrolyte and fluid disorders not elsewhere classified- Primary Other and unspecified hyperlipidemia Unspecified essential hypertension documented in this encounter Additional Health Concerns Infection Onset Date Last Indicated Resolved Time R/O COVID-19 04/27/2020 04/27/2020 04/29/2020 2:15 AM CDT R/O COVID-19 02/01/2021 02/01/2021 02/01/2021 3:10 PM CDT documented as of this encounter Care Teams Patent Paralegal Relationship Specialty Start Date End Date Nicole Blank MD [address] [address] PCP - General Family Practice 10/02/13 documented as of this encounter
--- OUTSIDE RECORDS SUMMARY | 2025-03-01 06:25 | XMS_ITS | Encounter Summary ---
Author Organization [facility] Address [address] [place] [address] Care Team Providers Care Industrial Conveyor Belt Repairer Name Role Phone Nicole Blank MD Primary Care Provider Encounter Details Date Type Department Care Team (Latest Contact Info) Description 05/22/2005 Outpatient Historical [facility] [place] [address] [facility] [address] [place] [address] Shukri Teran DO NO ADDRESS ON FILE CHEST PAIN NOS (Primary Dx); Pain in limb; HYPERLIPIDEMIA NEC/NOS Social History Tobacco Use Types Packs/Day Years Used Date Smoking Tobacco: Never Assessed Comments Unknown Sex and Gender Information Value Date Recorded Sex Assigned at Not on file Legal Sex Female 4:03 AM MEDICAL OPERATIONS SUPERVISOR Gender Identity Not on file Sexual Orientation Not on file documented as of this encounter Plan of Treatment Not on file documented as of this encounter Visit Diagnoses Diagnosis Chest pain, unspecified- Primary Pain in limb Pain in soft tissues of limb Other and unspecified hyperlipidemia documented in this encounter Additional Health Concerns Infection Onset Date Last Indicated Resolved Time R/O COVID-19 04/27/2020 04/27/2020 04/29/2020 2:15 AM CDT R/O COVID-19 02/01/2021 02/01/2021 02/01/2021 3:10 PM CDT documented as of this encounter Care Teams Industrial Conveyor Belt Repairer Relationship Specialty Start Date End Date Nicole Blank MD [address] [address] PCP - General Family Practice 10/02/13 documented as of this encounter
--- OUTSIDE RECORDS SUMMARY | 2025-03-01 06:25 | XMS_ITS | Encounter Summary ---
Author Organization [facility] Address [address] [place] [address] Care Team Providers Care Solutions Delivery Consultant Name Role Phone Nicole Blank MD Primary Care Provider Encounter Details Date Type Department Care Team (Latest Contact Info) Description 09/20/2004 Outpatient Historical [facility] [place] 104 [facility] [address] [place] [address] Shukri Teran DO NO ADDRESS ON FILE HYPERLIPIDEMIA NEC/NOS (Primary Dx); ACUTE BRONCHITIS; HYPOTENSION NOS Social History Tobacco Use Types Packs/Day Years Used Date Smoking Tobacco: Never Assessed Comments Unknown Sex and Gender Information Value Date Recorded Sex Assigned at Not on file Legal Sex Female 4:03 AM STAMPS OR COINS SALESPERSON Gender Identity Not on file Sexual Orientation Not on file documented as of this encounter Plan of Treatment Not on file documented as of this encounter Visit Diagnoses Diagnosis Other and unspecified hyperlipidemia- Primary Acute bronchitis Hypotension, unspecified documented in this encounter Additional Health Concerns Infection Onset Date Last Indicated Resolved Time R/O COVID-19 04/27/2020 04/27/2020 04/29/2020 2:15 AM CDT R/O COVID-19 02/01/2021 02/01/2021 02/01/2021 3:10 PM CDT documented as of this encounter Care Teams Solutions Delivery Consultant Relationship Specialty Start Date End Date Nicole Blank MD [address] [address] PCP - General Family Practice 10/02/13 documented as of this encounter
--- OUTSIDE RECORDS SUMMARY | 2025-03-01 06:25 | XMS_ITS | Encounter Summary ---
Author Organization [facility] Address [address] [place] [address] Care Team Providers Care Logistics Specialist Name Role Phone Nicole Blank MD Primary Care Provider Encounter Details Date Type Department Care Team (Late st Contact Info) Description 07/26/2005 Outpatient Historical [facility] [address] [address] Shukri Teran DO NO ADDRESS ON FILE Social History Tobacco Use Types Packs/Day Years Used Date Smoking Tobacco: Never Assessed Comments Unknown Sex and Gender Information Value Date Recorded Sex Assigned at Not on file Legal Sex Female 4:03 AM WAREHOUSING TECHNICIAN Gender Identity Not on file Sexual [...] documented as of this encounter Care Teams Logistics Specialist Relationship Specialty Start Date End Date Nicole Blank MD [address] [address] PCP - General Family Practice 10/02/13 documented as of this encounter
--- OUTSIDE RECORDS SUMMARY | 2025-03-01 06:25 | XMS_ITS | Encounter Summary ---
Author Organization [facility] Address [address] [place] [address] Care Team Providers Care Barrel Rifler Button Name Role Phone Nicole Blank MD Primary Care Provider [phone] Encounter Details Date Type Department Care Team (Latest Contact Info) Description 09/23/2004 Outpatient Historical [facility] [place] 104 [facility] [address] [place] [address] Shukri Teran DO NO ADDRESS ON FILE ACUTE BRONCHITIS (Primary Dx) Social History Tobacco Use Types Packs/Day Years Used Date Smoking Tobacco: Never Assessed Comments Unknown Sex and Gender Information Value Date Recorded Sex Assigned at Not on file Legal Sex Female 4:03 AM EQUAL OPPORTUNITY REPRESENTATIVE Gender Identity Not on file Sexual Orientation [...] documented as of this encounter Care Teams Barrel Rifler Button Relationship Specialty Start Date End Date Nicole Blank MD [address] [phone] PCP - General Family Practice 10/02/13 documented as of this encounter
--- OUTSIDE RECORDS SUMMARY | 2025-03-01 06:25 | XMS_ITS | Clinical Summary ---
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 Name Role Phone Jordan Bautista MD Primary Care Provider [phone] Allergies Active Allergy Reactions Criticality Noted Date Comments Alendronate Nausea and Vomiting Low 09/19/2021 Atorvastatin Muscle Pain Low 09/25/2008 Azithromycin Nausea and Vomiting Low 09/25/2008 Ezetimibe Muscle Pain Low 09/25/2008 Gemfibrozil Muscle Pain Low 09/25/2008 Pravastatin Muscle Pain Low 07/31/2018 Ranitidine Hcl Muscle Pain Low 05/22/2018 Sulfa (Sulfonamide Antibiotics) Rash Low 09/25/2008 Tobramycin Other (See Comments) 09/10/2013 Made eye bloodshot, swelling and some nausea, diarrhea per pt Medications cyanocobalamin (vit B-12) 100 mcg tablet Take 100 mcg by mouth daily. Active zinc gluconate 50 mg tablet Take by mouth. Activ e iron, carbonyl 45 mg tablet Take 45 mg by mouth daily. Active famotidine (PEPCID) 20 mg tabletIndications: Gastroesophageal reflux disease, unspecified whether esophagitis present Take 1 Tablet (20 mg) by mouth 2 times daily. 180 Tablet 1 023 Active MAGNESIUM CITRATE ORAL Take by mouth. Activ e potassium chloride/pot bicarb (POTASSIUM BICARB AND CHLORIDE ORAL) Take by mouth. Active Saccharomyces boulardii (FLORASTOR) 250 mg Capsule Take by mouth. Activ e nebulizerIndicatio ns:Chronic obstructive pulmonary disease, unspecified COPD type (CMS/HCC) Length of need 99 months Nebulizer with compressor, Kit: Disposable Nebulizer Kit, 2 per month, filters , areosol mask: Yes. Name of Medication Albuterol Budesonide 1 Each 023 Active albuterol (PROVENTIL,VENTOLI N) 2.5 mg /3 mL (0.083 %) Solution for NebulizationIndica tions:Chronic obstructive pulmonary disease, unspecified COPD type (CMS/HCC) Take 3 mL (2.5 mg) by inhalation every 6 hours as needed for Shortness of Breath. 100 mL 1 023 Active ondansetron (Zofran) 4 mg TabletIndications: Viral gastroenteritis Take 1 Tablet (4 mg) by mouth every 8 hours as needed for Nausea/Emesis. 20 Tablet 024 Active ipratropium bromide (ATROVENT) 0.02 % Solution USE 1 VIAL IN NEBULIZER TWICE DAILY 180 mL 11 024 Active bumetanide (BUMEX) 0.5 mg tabletIndications: Ankle edema, bilateral Take 1 Tablet (0.5 mg) by mouth 1 time daily as needed for Other (See Comment) (edema). 30 Tablet 1 024 Active ipratropium-albute roL (DUONEB) 0.5 mg-3 mg(2.5 mg base)/3 mL Solution for Nebulization USE 1 VIAL VIA NEBULIZER TWICE DAILY 540 mL 1 024 Active diclofenac sodium (VOLTAREN) 1 % gelIndications:Acu te right ankle pain,Primary osteoarthritis of knee, unspecified laterality Apply 2 Grams to affected area 4 times daily. 100 Gram 1 024 Active albuterol sulfate HFA 90 mcg/actuation aerosol inhalerIndications :Chronic obstructive pulmonary disease with (acute) exacerbation (CMS/HCC) Take 2 Puffs by inhalation every 6 hours as needed for Shortness of Breath. 8.5 Gram 3 025 Active oxygen home deliveryIndication s:Chronic obstructive pulmonary disease, unspecified COPD type (CMS/HCC),Chronic respiratory failure with hypoxia (CMS/HCC) Home Oxygen Concentrator yes at 0 L/M Rest, 2 L/M Activity, 2 L/M Sleep, Delivery Device: Nasal Cannula Portability: yes, 0 L/M Rest, 2 L/M Activity, May provide device best for patient needs(E system,home fill, conserving device) Length of Need: 99 months 1 Each 025 Active hyoscyamine 0.125 mg sublingual tabletIndications: Acute diarrhea Place 1 Tablet (0.125 mg) under tongue every 6 hours as needed for Spasm. 90 Tablet 1 025 Active Blood-Glucose Meter KitIndications:New onset type 2 diabetes mellitus (CMS/HCC) Check blood sugars once a day and PRN 1 Each 025 Active lancetsIndications :New onset type 2 diabetes mellitus (CMS/HCC) Check blood sugars once daily and prn 100 Each 3 025 Active blood sugar diagnostic (Blood Glucose Test) StripIndications:N ew onset type 2 diabetes mellitus (CMS/HCC) Check blood sugars daily and prn 100 Each 3 025 Active metFORMIN (GLUCOPHAGE XR) 500 mg Extended Release 24 hour tabletIndications: New onset type 2 diabetes mellitus (CMS/HCC) Take 1 Tablet (500 mg) by mouth daily with breakfast. 100 Tablet 3 025 Active triamterene-hydroC HLOROthiazide (DYAZIDE) 37.5-25 mg capsuleIndications :Primary hypertension Take 1 capsule by mouth once daily in the morning 100 Capsule 2 025 Active atenoloL (TENORMIN) 50 mg tabletIndications: Primary hypertension Take 2 tablets by mouth once daily 200 Tablet 2 025 Active simvastatin (ZOCOR) 40 mg tabletIndications: Mixed hyperlipidemia TAKE 1 TABLET BY MOUTH ONCE DAILY AT BEDTIME 100 Tablet 3 025 Active ALPRAZolam (XANAX) 0.25 mg tabletIndications: Situational anxiety,Grief reaction Take 1 tablet by mouth twice daily as needed for anxiety 60 Tablet 5 025 Active cyclobenzaprine (FLEXERIL) 10 mg tabletIndications: Primary osteoarthritis of knee, unspecified laterality TAKE 1 TABLET BY MOUTH ONCE DAILY AT BEDTIME NEEDED FOR DISCOMFORT OR SPASM 30 Tablet 2 025 Active meloxicam (MOBIC) 7.5 mg tabletIndications: Primary osteoarthritis of knee, unspecified laterality Take 2 tablets by mouth once daily 200 Tablet 1 Active omeprazole (PriLOSEC) 20 mg Capsule, Delayed Release(E.C.)Indic ations:Indigestion Take 1 capsule by mouth once daily 100 Capsule 1 Active losartan (COZAAR) 100 mg tabletIndications: Primary hypertension Take 1 Tablet (100 mg) by mouth daily. 100 Tablet 3 Active losartan (COZAAR) 50 mg tablet TAKE 1 TABLET(50 MG) BY MOUTH DAILY 100 Tablet 3 024 2024 Discontinued simvastatin (ZOCOR) 40 mg tabletIndications: Mixed hyperlipidemia take 1 tablet by mouth every day at bedtime 100 Tablet 3 024 2024 Discontinued cyclobenzaprine (FLEXERIL) 10 mg tabletIndications: Primary osteoarthritis of knee, unspecified laterality TAKE 1 TABLET BY MOUTH ONCE DAILY AT BEDTIME NEEDED FOR DISCOMFORT OR SPASM 100 Tablet 3 024 2024 Discontinued omeprazole (PriLOSEC) 20 mg Capsule, Delayed Release(E.C.)Indic ations:Indigestion TAKE 1 CAPSULE(20 MG) BY MOUTH DAILY 100 Capsule 3 024 2024 Discontinued meloxicam (MOBIC) 7.5 mg tabletIndications: Primary osteoarthritis of knee, unspecified laterality take 2 tablets by mouth every day 200 Tablet 3 024 2024 Discontinued ALPRAZolam (XANAX) 0.25 mg tabletIndications: Situational anxiety,Grief reaction TAKE 1 TABLET(0.25 MG) BY MOUTH TWICE DAILY NEEDED FOR ANXIETY 60 Tablet 5 024 2024 Discontinued nitrofurantoin (MACROBID) 100 mg capsuleIndications :Acute cystitis with hematuria Take 1 Capsule (100 mg) by mouth 2 times daily for 7 days. 14 Capsule 025 2024 Additional Information Patient not taking.Reported on 02/04/2025 losartan (COZAAR) 50 mg tablet Take 1 tablet by mouth once daily 100 Tablet 3 025 2024 Discontinued(R eorder) clotrimazole (LOTRIMIN) 1 % CreamIndications:S kin yeast infection Apply to affected area 2 times daily for 10 days. 14 Gram 025 2024 Discontinued(R eorder) clotrimazole (LOTRIMIN) 1 % CreamIndications:S kin yeast infection Apply to affected area 2 times daily for 10 days. 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 10/26/2023 Chronic obstructive pulmonary disease 06/15/2023 Vitamin D deficiency 03/21/2012 Overview (12/09/2020): 25 Vitamin D: 32 (01/23); 11 (8) Osteoporosis 03/18/2012 Overview (12/09/2020): BMD (02/20): Spine -3.6, Hip -2.5 Vitamin D: 11 (03/24) Hyperlipidemia 03/18/2012 Overview (12/09/2020): LDL: 130 (6/13); 148 (8/12) HDL: 41 (6/13); 45 (8/12) T (6/13); 252 (8/12) Intolerant to multiple medications Osteoarthritis, knee 03/18/2012 Overview (12/09/2020): Anterior medial approach is difficult for injections Hypokalemia 02/14/2011 GERD (gastroesophageal reflux disease) 0 Hypertension 09/25/2008 Resolved Problems Problem Noted Date Diagnosed Date Resolved Date SVT (supraventricular tachycardia) 06/07/2022 09/05/2023 Breast CA screening 03/18/2012 09/21/19 24 Overview (12/09/2020): Mammo: 02/21 Colon cancer screening 03/18/201209/21 Overview (12/09/2020): Colonoscopy: Not yet Encounters Date Type Department Care Team Description 02/25/2025 External Device Data [facility] ABSTRACTION Provider, Abstract 02/24/2025 External Device Data [facility] ABSTRACTION Provider, Abstract 02/24/[address] [place] [address] Jordan Bautista MD Results 02/23/2025 Results Follow-Up [address] [place] [id number] Ramona Caballero FNP BASIC METABOLIC PANEL, CBC WITH DIFFERENTIAL 02/20/2025 8:40 AM CDT Office Visit [address] [place] [address] Ramona Caballero, GERALD Primary hypertension (Primary Dx); Simple chronic bronchitis (CMS/HCC) 02/10/[address] [place] [address] Kelly Donohue FNP Indigestion 02/06/2025 Results Follow-Up [address] [place] [address] Khalida Archuleta FNP POC URINALYSIS DIPSTICK AUTOMATED, URINE CULTURE, CBC WITH DIFFERENTIAL 02/04/2025 11:00 AM CDT Office Visit [address] [place] [address] Khalida Archuleta FNP Other fatigue (Primary Dx); Skin yeast infection; Urinary tract infection without hematuria, site unspecified; Frail elderly; Hypertension, unspecified type; Hyperlipidemia, unspecified hyperlipidemia type 02/04/2025 Orders Only [address] [place] [address] Maritza Jaime RN Skin yeast infection 02/04/[address] [place] [address] Jordan Bautista MD Medication Question 02/04/[address] [place] [address] Ramona Caballero FNP 02/03/[address] [address] Jordan Bautista MD Medication Question; Question 02/03/[address] [place] [address] Jordan Bautista MD Situational anxiety; Grief reaction 02/03/[address] [address] Kelly Donohue FNP Mixed hyperlipidemia; Primary osteoarthritis of knee, unspecified laterality 02/03/2025 Results Follow-Up [address] [place] [address] Ramona Caballero FNP POC URINALYSIS DIPSTICK AUTOMATED, URINE CULTURE 02/02/[address] [address] Jordan Bautista MD Clinical Consult Before Scheduling; Patient Communication 01/30/2025 12:40 PM CDT Office Visit [address] [place] [address] Ramona Caballero, CYLINDER INSPECTOR AND TESTER Acute cystitis with hematuria (Primary Dx); Sensation of pressure in bladder area 01/27/2025 External Device Data [facility] ABSTRACTION Provider, Abstract 01/20/[address] [place] [address] Provider, Abstract 01/15/[address] [place] [address] Jordan Bautista MD Primary hypertension 01/03/2025 [facility] Medicine [address] [address] Kelly Donohue, GERALD Primary hypertension 01/01/2025 External Device Data [facility] ABSTRACTION Provider, Abstract 12/31/2024 External Device Data [facility] ABSTRACTION Provider, Abstract 12/30/2024 External Device Data [facility] ABSTRACTION Provider, Abstract from Last 3 Months Immunizations Immunization Administration Dates Next Due (PFIZER)(12 YR UP) COVID-19 VACCINE - EMERGENCY USE AUTHORIZATION, MRNA, [id number](PF) 30 MCG/0.3 ML IM SUSP 08/23/2021,11/25/2020,11/04/2020 (PNEUMOVAX 23)(50 YRS UP) PN EUMOCOCCAL POLYSACCHARIDE (PPV23) 0.5 ML, IM 03/18/2012,06/24/2004 INFLUENZA VACCINE HIGH DOSE QUADRIVALENT 65 YR UP PF IM 04/16/2024,05/07/2023,04/20/2022,06/16,05/07/2019,06/05/2018,05/02/2017 ,06/21/2016,05/26/2015,05/20/2014 INFLUENZA VACCINE HIGH DOSE TRIVALENT SPLIT VIRUS, (65 YR UP), 0.5ML (PF), IM 04/16/2024 Influenza Seasonal Unspecifi ed Formulation IM 05/08/2020,06/19/2013,05/18/2005,06/05,05/16/2002 Influenza Vaccine High Dose 65+ Yrs IM 0 05/07/2019,06/05/2018,05/02/2017,06/21,05/26/2015,05/20/2014 Influenza Vaccine Split 3+ Yrs IM 05/07/2012 Influenza Vaccine Split 3+ Yrs PF IM 06/19/2013, 05/05/2011 Family History Medical History Relation Name Comments Kidney Cancer Father Renal Cancer Kidney Disease Father Heart Attack Mother ora mike I THINK NO CHO L. SHE WAS ON JUST HEART MED Heart Disease Mother ora mike Cancer Sister 1 Bone Cancer (Sp ine) Cervical Cancer Sister 2 Cervical Can cer Breast Cancer Neg Hx Colon Cancer Neg Hx Ovarian Cancer Neg Hx Relation Name Status Comments Brother Father Mother ora mike Sister 1 Sister 2 Social History Tobacco Use Types Packs/Day Years Used Date Smoking Tobacco: Never Smokeless Tobacco: Never Tobacco Cessation:Counseling Given: No Alcohol Use Standard Drinks/Week Comments No 0 (1 standard drink = 0.6 oz pur e alcohol) Comments No Sex and Gender Information Value Date Recorded Sex Assigned at Not on file Legal Sex Female 4:28 AM [employer] Gender Identity Not on file Sexual Orientation Not on file Last Filed Vital Signs Vital Sign Reading Time Taken Comments Blood Pressure 150/78 02/20/2025 9:29 AM CDT Pulse 64 02/20/2025 8:41 AM CDT Temperature 36.2 C (97.2 F) 02/20/2025 8:41 AM CDT Respiratory Rate 18 02/20/2025 8:41 AM CDT Oxygen Saturation 95% 02/20/2025 8:41 AM CDT Inhaled Oxygen Concentration - - Weight 71.8 kg (158 lb 6.4 oz) 02/20/2025 8:41 A M CDT Height 149.9 cm (4' 11 ) 02/20/2025 8:41 AM CDT Body Mass Index 31.99 02/20/2025 8:41 AM CDT Plan of Treatment Upcoming Encounters Date Type Department Care Team (Late st Contact Info) Description 03/06/2025 9:00 AM CDT Office Visit [address] [address] Ramona Caballero FNP [address] [address] 04/10/2025 3:00 PM CDT Office Visit [address] [address] Jordan Bautista MD [address] [address] 05/21/2025 9:00 AM CDT Appointment [facility] Out[facility] [place] [address] [facility] [address] [place] [address] 11/27/2025 8:00 AM CDT Office Visit [facility] Family Medicine [place] [address] [facility] [address] [place] [address] Kelly Donohue, [facility] [address] [place] [address] Health Maintenance Due Date Last Done Comments DTAP/TDAP/TD VACCINES (1 - Tdap) 1964 ZOSTER VACCINE (1 of 2) 10/25/1995 PNEUMOCOCCAL VACCINE 50+ YEA RS (2 of 2 - PCV) 03/18/2013 03/18/2012, 06/24/2004 RSV VACCINE (60+ or ) (1 - 1-dose 75+ series) 2020 COVID-19 Vaccine (4 - 2023-2 5 season) 2024 08/23/2021, 11/25/2020, 11/04/2020 INFLUENZA VACCINE (#1) 2025 4, 04/16/2024, 05/07/2023, Additional history exists OSTEOPOROSIS SCREENING 07/11/2025 3, 12/29/2020, 12/29/2020, Additional history exists Traditional Medicare (ACO) A nnual Wellness Visit 11/27/2025 11/26/2024, 11/21/2023, 11/09/2022 Colorectal Cancer Screening Discontinued FIT/FOBT Q 1 year Discontinued 07/29/2019 COLORECTAL SCREENING Discontinued FIT-DNA Q 3 years Discontinued Flex Sig/CT Colonography Q 5 years Discontinued Procedures Procedure Name Priority Date/Time Associated Diagnosis Comments CBC WITH DIFFERENTIAL Routine 02/20/2025 9:11 AM CDT Primary hypertension BASIC METABOLIC PANEL Routine 02/20/2025 9:11 AM CDT Primary hypertension CBC WITH DIFFERENTIAL Routine 02/04/2025 11:11 AM CDT Other fatigue URINE CULTURE Routine 02/04/2025 11:11 AM CDT Urinary tract infection without hematuria, site unspecified POC URINALYSIS DIPSTICK AUTOMATED Routine 02/04/2025 11:10 AM CDT Urinary tract infection without hematuria, site unspecified URINE CULTURE Routine 01/30/2025 5:16 PM CDT Sensation of pressure in bladder area Acute cystitis with hematuria POC URINALYSIS DIPSTICK AUTOMATED Routine 01/30/2025 1:13 PM CDT Sensation of pressure in bladder area XR DEXA BONE DENSITY AXIAL 1 OR MORE SITES Routine 07/11/2023 12:05 PM [employer] Postmenopausal OCCULT BLOOD IMMUNOASSAY, COLORECTAL SCREEN Routine 07/29/2019 4:29 PM [employer] CAPTAIN from Last 3 Months or Most Recently Relevant to Health Maintenance Results * (ABNORMAL) CBC WITH DIFFERENTIAL (02/20/2025 9:11 AM CDT) Only the most recent of2 resultswithin the time period is included. WBC 6.1 3.8 - 10.8 Thousand/u L [facility] RBC 4.32 3.80 - 5.10 Million/uL [facility] HEMOGLOBIN 12.2 11.7 - 15.5 g/dL [facility] HEMATOCRIT 39.5 35.0 - 45.0 % [facility] MCV 91.4 80.0 - 100.0 fL [facility] MCH 28.2 27.0 - 33.0 pg [facility] MCHC 30.9(L) 32.0 - 36.0 g/dL [facility] Comment: For adults, a slight decrease in the calculated MCHC value (in the range of 30 to 32 g/dL) is most likely not clinically significant; however, it should be interpreted with caution in correlation with other red cell parameters and the patient's clinical condition. RDW 11.7 11.0 - 15.0 % [facility] PLATELETS 228 140 - 400 Thousand/u L [facility] MPV 10.1 7.5 - 12.5 fL [facility] NEUTROPHIL ABSOLUTE 4,709 1,500 - 7,800 cells/uL [facility] LYMPHOCYTE ABSOLUTE 775(L) 850 - 3,900 cells/uL [facility] MONOCYTE ABSOLUTE 445 200 - 950 cells/uL [facility] EOSINOPHIL ABSOLUTE 153 15 - 500 cells/uL [facility] BASOPHILS ABSOLUTE 18 0 - 200 cells/uL [facility] NEUTROPHIL 77.2 % [facility] LYMPHOCYTES 12.7 % [facility] MONOCYTE 7.3 % [facility] EOSINOPHILS 2.5 % [facility] BASOPHILS 0.3 % [facility] Comment: Test Performed at: [facility] [address] [place] [address] Ladi Gray MD Blood 02/20/2025 9:11 AM CDT 02/21/2025 3:13 AM CDT Ramona Jacobs Federico CYLINDER INSPECTOR AND TESTER HEMATOLOGY ORDERABLES nal Result [facility] [phone] [facility] [address] * (ABNORMAL) BASIC METABOLIC PANEL (02/20/2025 9:11 AM CDT) GLUCOSE 130(H) 65 - 99 mg/dL [facility] Comment: Fasting reference interval For someone without known diabetes, a glucose value >125 mg/dL indicates that they may have diabetes and this should be confirmed with a follow-up test. BUN 32(H) 7 - 25 mg/dL [facility] CREATININE 1.05(H) 0.60 - 1.00 mg/dL [facility] GFR 54(L) > OR = 60 mL/min/1.7 3m2 [facility] BUN/CREAT RATIO 30(H) 6 - 22 (calc) [facility] SODIUM 136 135 - 146 mmol/L [facility] POTASSIUM 4.3 3.5 - 5.3 mmol/L [facility] CHLORIDE 98 98 - 110 mmol/L [facility] CO2 30 20 - 32 mmol/L [facility] CALCIUM 8.5(L) 8.6 - 10.4 mg/dL [facility] Comment: Test Performed at: [facility] [id number] [place] [address] Ladi Gray MD Blood 02/20/2025 9:11 AM CDT 02/21/2025 3:13 AM CDT Ramona Caballero [facility] CHEMISTRY ORDERABLES Fin al Result Performing Organization Address City/State/[facility] Phone Number [facility] [phone] [facility] [address] * URINE CULTURE (02/04/2025 11:11 AM CDT) Only the most recent of2 resultswithin the time period is included. URINE CULTURE SEE NOTE [facility] Comment: CULTURE, URINE, ROUTINE Micro Number: [id number] Test Status: Final Specimen Source: Urine, clean catch Specimen Quality: Adequate Result: Mixed genital shanika isolated. These superficial bacteria are not indicative of a urinary tract infection. No further organism identification is warranted on this specimen. If clinically indicated, recollect clean-catch, mid-stream urine and transfer immediately to Urine Culture Transport Tube. Test Performed at: [facility] [id number] [place] [address] Ladi Gray MD Urine URINE SPECIMEN OBTAINED BY CLEAN CATCH PROCEDURE / Unknown 02/04/2025 11:11 AM CDT 02/05/2025 3:07 AM CDT Khalida Archuleta [facility] MICROBIOLOGY - GENERAL ORDE RABLES Final Result [facility] [phone] [facility] [address] [place] [address] * (ABNORMAL) POC URINALYSIS DIPSTICK AUTOMATED (02/04/2025 11:10 AM CDT) Only the most recent of2 resultswithin the time period is included. COLOR UA POC Yellow Pale to Dark Yellow [facility] CLARITY UA POC Clear Clear, Other [facility] GLUCOSE UA POC Negative Negative, Normal [facility] BILIRUBIN UA POC Negative Negative [facility] UA POC Negative Negative [facility] SPECIFIC GRAVITY UA POC 1.015 1.000 - 1.030 [facility] BLOOD UA POC Negative Negative [facility] PH UA POC 6.0 5.0 - 8.0 [facility] IC [facility] PROTEIN UA POC 1+(A) Negative [facility] UROBILINOGEN UA POC 0.2 <2.0 mg/dL [facility] NITRITE UA POC Negative Negative [facility] LEUKOCYTE ESTERASE UA POC Negative Negative [facility] KIT [address] POC [phone] [facility] KIT EXP DATE POC 08/12/2025 [facility] Urine 02/04/2025 11:1 0 AM CDT Khalida Archuleta [employer]LINDER INSPECTOR AND TESTER POINT OF CARE TESTING Final Result [facility] CLIA# [id number] [address] [place] [address] * (ABNORMAL) XR DEXA BONE DENSITY AXIAL 1 OR MORE SITES (07/11/2023 12:05 PM [employer]) T-SCORE HIP (LEFT) -2.10(A) -1.0 - 1.0 INTERFACE SYSTEM T-SCORE SPINE -2.80(A) -1.0 - 1.0 INTER FACE SYSTEM Anatomical Region Laterality Modality Digital Radiogra phy, Mammography 07/11/2023 12:0 5 PM [employer] Impressions 07/11/2023 9:16 PM [employer] CAPTAIN IMPRESSION: Fairly stable abnormal examination demonstrating osteoporotic values in the spine and hip just below the average of the patient's age-matched control consistent with age-appropriate physiologic versus early accelerated bone demineralization responsible for her osteoporosis. NOF guidelines recommend consideration of FDA-approved medical therapies in patients with T-scores of the spine or hip equal to or less than -2.5 or with FRAX determined 10-year probabilities of hip/major osteoporosis-related fractures equal or greater than 3%/20% respectively. FRAX determined 10-year hip and major osteoporotic fracture risks based on the femoral neck bone density are 7.0% and 20% respectively. Narrative 07/11/2023 9:16 PM [employer] DEXA Evaluation of the Lumbar Spine and Left Proximal Femur Reason for Consultation: Osteoporosis screening. Evaluation of bone mineral density. The following absorptiometry data were obtained. The quality of this examination is acceptable with regards to count density, processed images, data display and lack of important artifacts (including but not limited to motion and attenuation artifacts). Serial examination number 5 with comparison to prior exams from 1119. L1-L4 BMD (g/cm2): 0.740 Adult T-score: -2.8 Adult Z-score: -0.2 Left Femoral Neck BMD (g/cm2): 0.530 Adult T-score: -2.9 Adult Z-score: -0.7 Left Total Hip BMD (g/cm2): 0.688 Adult T-score: -2.1 Adult Z-score: -0.2 Procedure Note Wolfgang Tabor MD - 07/11/2023 DEXA Evaluation of the Lumbar Spine and Left Proximal Femur Reason for Consultation: Osteoporosis screening. Evaluation of bone mineral density. The following absorptiometry data were obtained. The quality of this examination is acceptable with regards to count density, processed images, data display and lack of important artifacts (including but not limited to motion and attenuation artifacts). Serial examination number 5 with comparison to prior exams from 1119. L1-L4 BMD (g/cm2): 0.740 Adult T-score: -2.8 Adult Z-score: -0.2 Left Femoral Neck BMD (g/cm2): 0.530 Adult T-score: -2.9 Adult Z-score: -0.7 Left Total Hip BMD (g/cm2): 0.688 Adult T-score: -2.1 Adult Z-score: -0.2 IMPRESSION: Fairly stable abnormal examination demonstrating osteoporotic values in the spine and hip just below the average of the patient's age-matched control consistent with age-appropriate physiologic versus early accelerated bone demineralization responsible for her osteoporosis. NOF guidelines recommend consideration of FDA-approved medical therapies in patients with T-scores of the spine or hip equal to or less than -2.5 or with FRAX determined 10-year probabilities of hip/major osteoporosis-related fractures equal or greater than 3%/20% respectively. FRAX determined 10-year hip and major osteoporotic fracture risks based on the femoral neck bone density are 7.0% and 20% respectively. Kelly Donohue CYLINDER INSPECTOR AND TESTER DIAGNOSTIC IMAGING ORDER MANDEEP Final Result * OCCULT BLOOD IMMUNOASSAY, COLORECTAL SCREEN (07/29/2019 4:29 PM RIVERBOAT CAPTAIN) OCCULT BLOOD, STOOL Negative Negative 07/30/2019 12:13 PM RIVERBOAT CAPTAIN [facility] Stool STOOL SPECIMEN / Unknown 07/29/2019 4:29 PM RIVERBOAT CAPTAIN 07/29/2019 4:29 PM RIVERBOAT CAPTAIN Nicole Blank MD BODY FLUIDS AND STOOLS Bree darling Result [facility] CLIA# [id number] [address] [place] [id number] from Last 3 Months or Most Recently Relevant to Health Maintenance Insurance MEDICARE PART A AND B PHYSICIANS LIFE [facility] Address: [address] [address] Advance Directives For more information, please contact: [phone] Documents on File Type Date Recorded Patient Tool Turret Lathe Set Up Operator Expl anation Advance Directive Living Will 12/12/2024 2:50 PM Advance Directive Living Will Advance Directive POA 12/12/2024 2:49 PM Ad celestin Directive POA * NO CPR (In Event of Cardiopulmonary Arrest) (Latest Code Status on File) Date Activated Date Inactivated Comments 11/21/2023 8:41 AM Question Answer Comments Mechanical Ventilation (for respiratory distress) - Invasive (i.e. intubation): No Mechanical Ventilation (for respiratory distress) - Non-Invasive (i.e. BiPAP, CPAP): No Care Teams Produce Field Merchandiser Relationship Specialty Start Date End Date Jordan Bautista MD [address] [place] [address] PCP - General Family Practice 08/24/21
--- OUTSIDE RECORDS SUMMARY | 2025-03-01 06:25 | XMS_ITS | Encounter Summary ---
Author Organization [facility] Address [address] [place] [address] Care Team Providers Care Cardroom Manager Name Role Phone Jordan Bautista MD Primary Care Provider [phone] Encounter Details Date Type Department Care Team [...] on file Legal Sex Female 4:28 AM CHILDREN'S COUNSELOR Gender Identity Not on file Sexual Orientation Not on file COVID-19 Exposure Response Date Recorded In the last month, have you been in contact with someone who was confirmed or suspected to have Coronavirus / COVID-19? No / Unsure 08/31/2021 11:21 AM CHILDREN'S COUNSELOR documented as of this encounter Plan of Treatment Upcoming Encounters Date Type Department Care Team (Late Contact Info) Description 03/06/2025 9:00 AM CDT Office Visit [facility] [address] [address] Ramona Caballero FNP [address] [address] 04/10/2025 3:00 PM CDT Office Visit [facility] [address] [place] [address] Jordan Bautista MD [address] [place] [address] 05/21/2025 9:00 AM CDT Appointment [facility] [address] [place] [address] 11/27/2025 8:00 AM CDT Office Visit [facility] [address] [place] [address] Kelly Donohue, [facility] [address] [place] [address] documented as of this encounter Visit Diagnoses Not on filedocumented in this encounter Additional Health Concerns Infection Onset Date Last Indicated Resolved Time R/O COVID-19 09/22/2024 09/22/2024 09/23/2024 8:27 AM CHILDREN'S COUNSELOR COVID-19 10/27/2024 10/27/2024 11/16/2024 1:16 AM CDT documented as of this encounter Care Teams Cardroom Manager Relationship Specialty Start Date End Date Jordan Bautista MD [address] [facility] [place] [address] PCP - General Family Practice 08/24/21 documented as of this encounter
--- OUTSIDE RECORDS SUMMARY | 2025-03-01 06:25 | XMS_ITS | Encounter Summary ---
Author Organization [facility] Address [address] [place] [address] Care Team Providers Care Condominium Property Manager Name Role Phone Nicole Blank MD Primary Care Provider Reason for Referral * Outpatient Services (Routine) - Closed Specialty Diagnoses / Procedures Referred By Carlee cordova Referred To Contact Radiology Diagnoses Visit for screening mammogram Procedures MAMMO DIGITIZED STUDY Shukri Teran DO NO ADDRESS ON FILE [facility] [address] [facility] [address] [place] [address] Phone: tel: fax: Referral ID Status Reason Start Date Expiration Date Visits Re quested Visits Authorized [id number] Closed 02/13/2012 02/12/2013 1 1 Encounter Details Date Type Department Care Team (Late st Contact Info) Description 02/13/2012 Ancillary Orders [facility] Medicine [place] 104 [facility] 60 [place] [address] Shukri Teran DO NO ADDRESS [...] on file Legal Sex Female 4:03 AM ADMISSIONS MANAGER RN Gender Identity Not on file Sexual Orientation Not on file Occupation Industry Job Start Date Job End Date Not on file Not on file Not on file Not on file documented as of this encounter Plan of Treatment Not on file documented as of this encounter Results * MAMMO DIGITIZED STUDY (02/07/2011 10:40 AM CDT) Narrative Sheila Soares, RT - 02/13/2012 10:41 AM CDT Order information only. Exam was auto-finalized. Procedure Note Sheila Soares, RT - 02/13/2012 Order information only. Exam was auto-finalized. us Shukri Teran DO DIAGNOSTIC IMAGING ORDERABLES F inal Result documented in this encounter Visit Diagnoses Diagnosis Visit for screening mammogram Other screening mammogram Visit for screening mammogram Other screening mammogram documented in this encounter Additional Health Concerns Infection Onset Date Last Indicated Resolved Time R/O COVID-19 04/27/2020 04/27/2020 04/29/2020 2:15 AM CDT R/O COVID-19 02/01/2021 02/01/2021 02/01/2021 3:10 PM CDT documented as of this encounter Care Teams Condominium Property Manager Relationship Specialty Start Date End Date Nicole Blank MD [address] [facility] [place] [phone] PCP - General Family Practice 10/02/13 documented as of this encounter
--- OUTSIDE RECORDS SUMMARY | 2025-03-01 06:25 | XMS_ITS | Encounter Summary ---
Author Organization [facility] Address [address] [place] [address] Care Team Providers Care Fishery Biologist Name Role Phone Jordan Bautista MD Primary Care Provider [phone] Encounter Details Date Type Department Care Team (Late Contact Info) Description 09/11/2021 Digital Self COVID-1 9 Monitoring ST[facility] ABSTRACTION [...] on file Legal Sex Female 4:28 AM BRAIDER TENDER Gender Identity Not on file Sexual Orientation Not on file COVID-19 Exposure Response Date Recorded In the last month, have you been in contact with someone who was confirmed or suspected to have Coronavirus / COVID-19? Unable to assess 09/12/2021 1:14 PM BRAIDER TENDER documented as of this encounter Plan of Treatment Upcoming Encounters Date Type Department Care Team (Late Contact Info) Description 03/06/2025 9:00 AM CDT Office Visit [facility] Family [facility] [place] [address] [address] Ramona Caballero FNP [address] [address] 04/10/2025 3:00 PM CDT Office Visit [facility] [address] [place] [address] Jordan Bautista MD [address] [place] [address] 05/21/2025 9:00 AM CDT Appointment [facility] [address] [place] [address] 11/27/2025 8:00 AM CDT Office Visit [facility] [address] [place] [address] Kelly Donohue, [facility] [address] [place] [address] documented as of this encounter Visit Diagnoses Not on filedocumented in this encounter Additional Health Concerns Infection Onset Date Last Indicated Resolved Time R/O COVID-19 09/22/2024 09/22/2024 09/23/2024 8:27 AM BRAIDER TENDER COVID-19 10/27/2024 10/27/2024 11/16/2024 1:16 AM CDT documented as of this encounter Care Teams Fishery Biologist Relationship Specialty Start Date End Date Jordan Bautista MD [address] [place] [address] PCP - General Family Practice 08/24/21 documented as of this encounter
--- OUTSIDE RECORDS SUMMARY | 2025-03-01 06:25 | XMS_ITS | Encounter Summary ---
Author Organization [facility] Address [address] [place] [address] Care Team Providers Care Environmental Health Nurse Name Role Phone Jordan Bautista MD Primary Care Provider [phone] Encounter Details Date Type Department Care Team (Late Contact Info) Description 09/09/2021 Digital Self COVID-1 9 Monitoring STL ABSTRACTION [...] on file Legal Sex Female 4:28 AM TORTILLA MAKER Gender Identity Not on file Sexual Orientation Not on file COVID-19 Exposure Response Date Recorded In the last month, have you been in contact with someone who was confirmed or suspected to have Coronavirus / COVID-19? Unable to assess 09/12/2021 1:14 PM TORTILLA MAKER documented as of this encounter Plan of Treatment Upcoming Encounters Date Type Department Care Team (Late Contact Info) Description 03/06/2025 9:00 AM CDT Office Visit [facility] Family Medicine [place] [address] [address] Ramona Caballero FNP [address] [address] 04/10/2025 3:00 PM CDT Office Visit [facility] [address] [place] [address] Jordan Bautista MD [address] [place] [address] 05/21/2025 9:00 AM CDT Appointment [facility] [address] [place] [address] 11/27/2025 8:00 AM CDT Office Visit [facility] [address] [place] [address] Kelly Donohue, [facility] [address] [place] [address] documented as of this encounter Visit Diagnoses Not on filedocumented in this encounter Additional Health Concerns Infection Onset Date Last Indicated Resolved Time R/O COVID-19 09/22/2024 09/22/2024 09/23/2024 8:27 AM TORTILLA MAKER COVID-19 10/27/2024 10/27/2024 11/16/2024 1:16 AM CDT documented as of this encounter Care Teams Environmental Health Nurse Relationship Specialty Start Date End Date Jordan Bautista MD [address] [facility] [place] [address] PCP - General Family Practice 08/24/21 documented as of this encounter
--- OUTSIDE RECORDS SUMMARY | 2025-03-01 06:25 | XMS_ITS | Encounter Summary ---
Author Organization [facility] Address [address] [place] [address] Care Team Providers Care Tube Draw Helper Name Role Phone Nicole Blank MD Primary Care Provider Encounter Details Date Type Department Care Team (Latest Contact Info) Description 10/02/2000 Outpatient Historical [facility] Family Medicine- [place] [address] [place] [address] Shukri Teran DO NO ADDRESS ON FILE Abdominal pain, unspecified site (Primary Dx) Social History Tobacco Use Types Packs/Day Years Used Date Smoking Tobacco: Never Assessed Comments Unknown Sex and Gender Information Value Date Recorded Sex Assigned at Not on file Legal Sex Female 4:03 AM SHEAR ASSEMBLER Gender Identity Not on file Sexual Orientation [...] documented as of this encounter Care Teams Tube Draw Helper Relationship Specialty Start Date End Date Nicole Blank MD [address] [address] PCP - General Family Practice 10/02/13 documented as of this encounter
--- OUTSIDE RECORDS SUMMARY | 2025-03-01 06:25 | XMS_ITS | Encounter Summary ---
Author Organization [facility] Address [address] [place] [address] Care Team Providers Care Gis Administrator Name Role Phone Jordan Bautista MD Primary Care Provider [phone] Encounter Details Date Type Department Care Team (Late Contact Info) Description 09/14/2021 Digital Self COVID-1 9 Monitoring STL ABSTRACTION [...] on file Legal Sex Female 4:28 AM C PYTHON DEVELOPER Gender Identity Not on file Sexual Orientation Not on file COVID-19 Exposure Response Date Recorded In the last month, have you been in contact with someone who was confirmed or suspected to have Coronavirus / COVID-19? Unable to assess 09/12/2021 1:14 PM C PYTHON DEVELOPER documented as of this encounter Plan of Treatment Upcoming Encounters Date Type Department Care Team (Late Contact Info) Description 03/06/2025 9:00 AM CDT Office Visit [facility] Family Medicine [place] [address] [address] Ramona Caballero FNP [address] [address] 04/10/2025 3:00 PM CDT Office Visit [facility] [address] [place] [address] Jordan Bautista MD [address] [place] [address] 05/21/2025 9:00 AM CDT Appointment [facility] [address] [place] [address] 11/27/2025 8:00 AM CDT Office Visit [facility] [address] [place] [address] Kelly Donohue, [facility] [address] [place] [address] documented as of this encounter Visit Diagnoses Not on filedocumented in this encounter Additional Health Concerns Infection Onset Date Last Indicated Resolved Time R/O COVID-19 09/22/2024 09/22/2024 09/23/2024 8:27 AM C PYTHON DEVELOPER COVID-19 10/27/2024 10/27/2024 11/16/2024 1:16 AM CDT documented as of this encounter Care Teams Gis Administrator Relationship Specialty Start Date End Date Jordan Bautista MD [address] [facility] [place] [address] PCP - General Family Practice 08/24/21 documented as of this encounter
--- OUTSIDE RECORDS SUMMARY | 2025-03-01 06:25 | XMS_ITS | Encounter Summary ---
Author Organization [facility] Address [address] [place] [address] Care Team Providers Care Lead Atg Developer Name Role Phone Nicole Blank MD Primary Care Provider Encounter Details Date Type Department Care Team (Latest Contact Info) Description 08/02/2006 Outpatient Historical [facility] Family Medicine [place] [address] [facility] [address] [place] [address] Terese Palomino, FISH FARM MANAGER [address] [place] [address] Acute Upper Respiratory Infections of Unspecified Site (Primary Dx) Social History Tobacco Use Types Packs/Day Years Used Date Smoking Tobacco: Never Assessed Comments Unknown Sex and Gender Information Value Date Recorded Sex Assigned at Not on file Legal Sex Female 4:03 AM SKEIN YARN DRIER Gender Identity Not on file Sexual Orientation [...] documented as of this encounter Care Teams Lead Atg Developer Relationship Specialty Start Date End Date Nicole Blank MD [address] [phone] PCP - General Family Practice 10/02/13 documented as of this encounter
--- OUTSIDE RECORDS SUMMARY | 2025-03-01 06:25 | XMS_ITS | Encounter Summary ---
Author Organization [facility] Address [address] [place] [address] Care Team Providers Care Electrician Assistant Name Role Phone Nicole Blank MD Primary Care Provider [phone] Encounter Details Date Type Department Care Team (Late st Contact Info) Description 08/15/2007 Outpatient Historical [facility] [address] [phone] Terese Palomino, DEPARTMENT HELPER [address] [place] [address] Social History Tobacco Use Types Packs/Day Years Used Date Smoking Tobacco: Never Assessed Comments Unknown Sex and Gender Information Value Date Recorded Sex Assigned at Not on file Legal Sex Female 4:03 AM DESKTOP SUPPORT ENGINEER Gender Identity Not on file Sexual [...] documented as of this encounter Care Teams Electrician Assistant Relationship Specialty Start Date End Date Nicole Blank MD [address] [address] PCP - General Family Practice 10/02/13 documented as of this encounter
--- OUTSIDE RECORDS SUMMARY | 2025-03-01 06:25 | XMS_ITS | Encounter Summary ---
Author Organization [facility] Address [address] [place] [address] Care Team Providers Care Paper Ruler Name Role Phone Nicole Blank MD Primary Care Provider Encounter Details Date Type Department Care Team (Latest Contact Info) Description 05/11/1999 Outpatient Historical [facility] Family Medicine [place] [address] [facility] [address] [place] [address] Marylou Green NO ADDRESS ON FILE Unspecified acute reaction to stress (Primary Dx); Insomnia, unspecified Social History Tobacco Use Types Packs/Day Years Used Date Smoking Tobacco: Never Assessed Comments Unknown Sex and Gender Information Value Date Recorded Sex Assigned at Not on file Legal Sex Female 4:03 AM BATCH DUMPER Gender Identity Not on file Sexual Orientation Not on file documented as of this encounter Plan of Treatment Not on file documented as of this encounter Visit Diagnoses Diagnosis Unspecified acute reaction to stress- Primary Insomnia, unspecified documented in this encounter Additional Health Concerns Infection Onset Date Last Indicated Resolved Time R/O COVID-19 04/27/2020 04/27/2020 04/29/2020 2:15 AM CDT R/O COVID-19 02/01/2021 02/01/2021 02/01/2021 3:10 PM CDT documented as of this encounter Care Teams Paper Ruler Relationship Specialty Start Date End Date Nicole Blank MD [address] [address] PCP - General Family Practice 10/02/13 documented as of this encounter
--- OUTSIDE RECORDS SUMMARY | 2025-03-01 06:25 | XMS_ITS | Encounter Summary ---
Author Organization [facility] Address [address] [place] [address] Care Team Providers Care Transfer Table Operator Helper Name Role Phone Nicole Blank MD Primary Care Provider Encounter Details Date Type Department Care Team (Late st Contact Info) Description 03/18/2014 Ancillary Orders [facility] [address] [address] Francisco Hensley PA NO ADDRESS ON FILE Other screening mammogram (Primary Dx) Social History Tobacco Use Types Packs/Day Years Used Date Smoking Tobacco: Never Smokeless Tobacco: Never Alcohol Use Standard Drinks/Week Comments No 0 (1 standard drink = 0.6 oz pur e alcohol) Comments No Sex and Gender Information Value Date Recorded Sex Assigned at Not on file Legal Sex Female 4:03 AM SALES PROJECT MANAGER Gender Identity Not on file Sexual Orientation Not on file Occupation Industry Job Start Date Job End Date Not on file Not on file Not on file Not on file Not on file Not on file Not on file Not on file documented as of this encounter Plan of Treatment Not on file documented as of this encounter Results * MAMMO DIGITIZED STUDY (07/18/2004 9:43 AM SALES PROJECT MANAGER) Narrative Sheila Soares, RT - 03/18/2014 10:44 AM CDT Order information only. Exam was auto-finalized. Procedure Note Sheila Soares, RT - 03/18/2014 Order information only. Exam was auto-finalized. Francisco MCKENNA DIAGNOSTIC IMAGING ORDERABLES Final Result documented in this encounter Visit Diagnoses Diagnosis Other screening mammogram- Primary Other screening mammogram documented in this encounter Additional Health Concerns Infection Onset Date Last Indicated Resolved Time R/O COVID-19 04/27/2020 04/27/2020 04/29/2020 2:15 AM CDT R/O COVID-19 02/01/2021 02/01/2021 02/01/2021 3:10 PM CDT documented as of this encounter Care Teams Transfer Table Operator Helper Relationship Specialty Start Date End Date Nicole Blank MD [address] [phone] PCP - General Family Practice 10/02/13 documented as of this encounter
--- OUTSIDE RECORDS SUMMARY | 2025-03-01 06:25 | XMS_ITS | Encounter Summary ---
Author Organization [facility] Address [address] [place] [address] Care Team Providers Care Nurse Private Duty Name Role Phone Nicole Blank MD Primary Care Provider Encounter Details Date Type Department Care Team (Latest Contact Info) Description 06/20/2004 Outpatient Historical [facility] Family Medicine [place] [address] [facility] 60 [place] [address] Miguel Zelaya NP NO ADDRESS ON FILE ACUTE PHARYNGITIS (Primary Dx); ACUTE SINUSITIS NOS Social History Tobacco Use Types Packs/Day Years Used Date Smoking Tobacco: Never Assessed Comments Unknown Sex and Gender Information Value Date Recorded Sex Assigned at Not on file Legal Sex Female 4:03 AM HAND DRILLER Gender Identity Not on file Sexual Orientation [...] documented as of this encounter Care Teams Nurse Private Duty Relationship Specialty Start Date End Date Nicole Blank MD [address] [address] PCP - General Family Practice 10/02/13 documented as of this encounter
--- OUTSIDE RECORDS SUMMARY | 2025-03-01 06:25 | XMS_ITS | Encounter Summary ---
Author Organization [facility] Address [address] [place] [address] Care Team Providers Care Plant Wrapper Name Role Phone Jordan Bautista MD Primary Care Provider [phone] Encounter Details Date Type Department Care Team (Late Contact Info) Description 09/08/2021 Digital Self COVID-1 9 Monitoring STL ABSTRACTION [...] on file Legal Sex Female 4:28 AM MARKING DEVICES ASSEMBLER Gender Identity Not on file Sexual Orientation Not on file COVID-19 Exposure Response Date Recorded In the last month, have you been in contact with someone who was confirmed or suspected to have Coronavirus / COVID-19? No / Unsure 08/31/2021 11:21 AM MARKING DEVICES ASSEMBLER documented as of this encounter Plan of Treatment Upcoming Encounters Date Type Department Care Team (Late Contact Info) Description 03/06/2025 9:00 AM CDT Office Visit [facility] [address] [address] Ramona Caballero FNP [address] [address] 04/10/2025 3:00 PM CDT Office Visit [facility] [address] [place] [address] Jordan Bautista MD [address] [place] [address] 05/21/2025 9:00 AM CDT Appointment [facility] [address] [place] [address] 11/27/2025 8:00 AM CDT Office Visit [facility] [address] [place] [address] Kelly Donohue, [facility] [address] [place] [address] documented as of this encounter Visit Diagnoses Not on filedocumented in this encounter Additional Health Concerns Infection Onset Date Last Indicated Resolved Time R/O COVID-19 09/22/2024 09/22/2024 09/23/2024 8:27 AM MARKING DEVICES ASSEMBLER COVID-19 10/27/2024 10/27/2024 11/16/2024 1:16 AM CDT documented as of this encounter Care Teams Plant Wrapper Relationship Specialty Start Date End Date Jordan Bautista MD [address] [facility] [place] [address] PCP - General Family Practice 08/24/21 documented as of this encounter
--- OUTSIDE RECORDS SUMMARY | 2025-03-01 06:25 | XMS_ITS | Encounter Summary ---
Author Organization [facility] Address [address] [place] [address] Care Team Providers Care Assembler Golf Wood Head Name Role Phone Jordan Bautista MD Primary Care Provider [phone] [phone] Encounter Details Date Type Department Care Team [...] on file Legal Sex Female 4:28 AM PERSONAL COMPUTER NETWORK ENGINEER Gender Identity Not on file Sexual Orientation Not on file COVID-19 Exposure Response Date Recorded In the last month, have you been in contact with someone who was confirmed or suspected to have Coronavirus / COVID-19? Unable to assess 09/12/2021 1:14 PM PERSONAL COMPUTER NETWORK ENGINEER documented as of this encounter Plan of Treatment Upcoming Encounters Date Type Department Care Team (Late Contact Info) Description 03/06/2025 9:00 AM CDT Office Visit [facility] [place] [address] [address] Ramona Caballero FNP [address] [address] 04/10/2025 3:00 PM CDT Office Visit [facility] [address] [place] [address] Jordan Bautista MD [address] [place] [address] 05/21/2025 9:00 AM CDT Appointment [facility] [address] [place] [address] 11/27/2025 8:00 AM CDT Office Visit [facility] [address] [place] [address] Kelly Donohue, [facility] [address] [place] [address] documented as of this encounter Visit Diagnoses Not on filedocumented in this encounter Additional Health Concerns Infection Onset Date Last Indicated Resolved Time R/O COVID-19 09/22/2024 09/22/2024 09/23/2024 8:27 AM PERSONAL COMPUTER NETWORK ENGINEER COVID-19 10/27/2024 10/27/2024 11/16/2024 1:16 AM CDT documented as of this encounter Care Teams Assembler Golf Wood Head Relationship Specialty Start Date End Date Jordan Bautista MD [address] [place] [address] PCP - General Family Practice 08/24/21 documented as of this encounter
--- OUTSIDE RECORDS SUMMARY | 2025-03-01 06:25 | XMS_ITS | Encounter Summary ---
Author Organization [facility] Address [address] [place] [address] Care Team Providers Care Geological Sample Tester Name Role Phone Jordan Bautista MD Primary Care Provider [phone] [phone] Encounter Details Date Type Department Care Team (Late Contact Info) Description 09/03/2021 Digital Self COVID-1 9 Monitoring [facility] ABSTRACTION [...] on file Legal Sex Female 4:28 AM CASING FLUSHER Gender Identity Not on file Sexual Orientation Not on file COVID-19 Exposure Response Date Recorded In the last month, have you been in contact with someone who was confirmed or suspected to have Coronavirus / COVID-19? No / Unsure 08/31/2021 11:21 AM CASING FLUSHER documented as of this encounter Plan of Treatment Upcoming Encounters Date Type Department Care Team (Late Contact Info) Description 03/06/2025 9:00 AM CDT Office Visit [facility] [address] [address] Ramona Caballero FNP [address] [address] 04/10/2025 3:00 PM CDT Office Visit [facility] [address] [place] [address] Jordan Bautista MD [address] [place] [address] 05/21/2025 9:00 AM CDT Appointment [facility] [address] [place] [address] 11/27/2025 8:00 AM CDT Office Visit [facility] [address] [place] [address] Kelly Donohue, [facility] [address] [place] [address] documented as of this encounter Visit Diagnoses Not on filedocumented in this encounter Additional Health Concerns Infection Onset Date Last Indicated Resolved Time R/O COVID-19 09/22/2024 09/22/2024 09/23/2024 8:27 AM CASING FLUSHER COVID-19 10/27/2024 10/27/2024 11/16/2024 1:16 AM CDT documented as of this encounter Care Teams Geological Sample Tester Relationship Specialty Start Date End Date Jordan Bautista MD [address] [facility] [place] [address] PCP - General Family Practice 08/24/21 documented as of this encounter
--- OUTSIDE RECORDS SUMMARY | 2025-03-01 06:25 | XMS_ITS | Encounter Summary ---
Author Organization [facility] Address [address] [place] [address] Care Team Providers Care Bottle Filler Name Role Phone Nicole Blank MD Primary Care Provider Encounter Details Date Type Department Care Team (Latest Contact Info) Description 06/29/1999 Outpatient Historical [facility] Family [facility] [place] 104 [facility] 60 [place] [address] Shukri Teran DO NO ADDRESS ON FILE Other and unspecified hyperlipidemia (Primary Dx) Social History Tobacco Use Types Packs/Day Years Used Date Smoking Tobacco: Never Assessed Comments Unknown Sex and Gender Information Value Date Recorded Sex Assigned at Not on file Legal Sex Female 4:03 AM WOOD CLUB NECK WHIPPER Gender Identity Not on file Sexual Orientation [...] documented as of this encounter Care Teams Bottle Filler Relationship Specialty Start Date End Date Nicole Blank MD [address] [phone] PCP - General Family Practice 10/02/13 documented as of this encounter
--- OUTSIDE RECORDS SUMMARY | 2025-03-01 06:25 | XMS_ITS | Encounter Summary ---
Author Organization [facility] Address [address] [place] [address] Care Team Providers Care Concrete Mixing Truck Driver Name Role Phone Nicole Blank MD Primary Care Provider Encounter Details Date Type Department Care Team (Latest Contact Info) Description 02/03/2005 Outpatient Historical [facility] Medicine [place] 104 [facility] 60 [place] [address] Shukri Teran DO NO ADDRESS ON FILE URIN TRACT INFECTION NOS (Primary Dx) Social History Tobacco Use Types Packs/Day Years Used Date Smoking Tobacco: Never Assessed Comments Unknown Sex and Gender Information Value Date Recorded Sex Assigned at Not on file Legal Sex Female 4:03 AM DIRECT SUPPORT PROFESSIONAL CAREGIVER Gender Identity Not on file Sexual Orientation [...] documented as of this encounter Care Teams Concrete Mixing Truck Driver Relationship Specialty Start Date End Date Nicole Blank MD [address] [phone] PCP - General Family Practice 10/02/13 documented as of this encounter
--- OUTSIDE RECORDS SUMMARY | 2025-03-01 06:25 | XMS_ITS | Encounter Summary ---
Author Organization [facility] Address [address] [place] [address] Care Team Providers Care Waterproof Coating Machine Tender Name Role Phone Jordan Bautista MD Primary Care Provider [phone] [phone] Encounter Details Date Type Department Care Team [...] on file Legal Sex Female 4:28 AM RETAIL TEAM MEMBER Gender Identity Not on file Sexual Orientation Not on file COVID-19 Exposure Response Date Recorded In the last month, have you been in contact with someone who was confirmed or suspected to have Coronavirus / COVID-19? Unable to assess 09/12/2021 1:14 PM RETAIL TEAM MEMBER documented as of this encounter Plan of Treatment Upcoming Encounters Date Type Department Care Team (Late Contact Info) Description 03/06/2025 9:00 AM CDT Office Visit [facility] Family Medicine [place] [address] [address] Ramona Caballero FNP [address] [address] 04/10/2025 3:00 PM CDT Office Visit [facility] [address] [place] [address] Jordan Bautista MD [address] [place] [address] 05/21/2025 9:00 AM CDT Appointment [facility] [address] [place] [address] 11/27/2025 8:00 AM CDT Office Visit [facility] [address] [place] [address] Kelly Donohue, [facility] [address] [place] [address] documented as of this encounter Visit Diagnoses Not on filedocumented in this encounter Additional Health Concerns Infection Onset Date Last Indicated Resolved Time R/O COVID-19 09/22/2024 09/22/2024 09/23/2024 8:27 AM RETAIL TEAM MEMBER COVID-19 10/27/2024 10/27/2024 11/16/2024 1:16 AM CDT documented as of this encounter Care Teams Waterproof Coating Machine Tender Relationship Specialty Start Date End Date Jordan Bautista MD [address] [facility] [place] [address] PCP - General Family Practice 08/24/21 documented as of this encounter
--- OUTSIDE RECORDS SUMMARY | 2025-03-01 06:25 | XMS_ITS | Encounter Summary ---
Author Organization [facility] Address [address] [place] [address] Care Team Providers Care Board Setter Name Role Phone Nicole Blank MD Primary Care Provider Encounter Details Date Type Department Care Team (Latest Contact Info) Description 08/01/2004 Outpatient Historical [facility] [place] 104 [facility] 60 [place] [address] Shukri Teran DO NO ADDRESS ON FILE OSTEOPOROSIS NOS (Primary Dx); HYPERLIPIDEMIA NEC/NOS; OSTEOARTHROS NOS-UNSPEC Social History Tobacco Use Types Packs/Day Years Used Date Smoking Tobacco: Never Assessed Comments Unknown Sex and Gender Information Value Date Recorded Sex Assigned at Not on file Legal Sex Female 4:03 AM GUM SCORING MACHINE OPERATOR Gender Identity Not on file Sexual Orientation Not on file documented as of this encounter Plan of Treatment Not on file documented as of this encounter Visit Diagnoses Diagnosis Osteoporosis, unspecified- Primary Other and unspecified hyperlipidemia Osteoarthrosis, unspecified whether generalized or localized, unspecified site documented in this encounter Additional Health Concerns Infection Onset Date Last Indicated Resolved Time R/O COVID-19 04/27/2020 04/27/2020 04/29/2020 2:15 AM CDT R/O COVID-19 02/01/2021 02/01/2021 02/01/2021 3:10 PM CDT documented as of this encounter Care Teams Board Setter Relationship Specialty Start Date End Date Nicole Blank MD [address] [address] PCP - General Family Practice 10/02/13 documented as of this encounter
--- OUTSIDE RECORDS SUMMARY | 2025-03-01 06:25 | XMS_ITS | Encounter Summary ---
Author Organization [facility] Address [address] [place] [address] Care Team Providers Care Careers Counsellor Name Role Phone Nicole Blank MD Primary Care Provider [phone] Encounter Details Date Type Department Care Team (Latest Contact Info) Description 11/17/2003 Outpatient Historical [facility] Family Medicine [place] 104 [facility] 60 [place] [address] Terese Palomino, BEAUTY SHOP MANAGER [address] [place] [address] WBC DISEASE NOS (Primary Dx); ACUTE BRONCHITIS Social History Tobacco Use Types Packs/Day Years Used Date Smoking Tobacco: Never Assessed Comments Unknown Sex and Gender Information Value Date Recorded Sex Assigned at Not on file Legal Sex Female 4:03 AM RN CARDIOVASCULAR ICU Gender Identity Not on file Sexual Orientation Not on file documented as of this encounter Plan of Treatment Not on file documented as of this encounter Visit Diagnoses Diagnosis Unspecified disease of white blood cells- Primary Acute bronchitis documented in this encounter Additional Health Concerns Infection Onset Date Last Indicated Resolved Time R/O COVID-19 04/27/2020 04/27/2020 04/29/2020 2:15 AM CDT R/O COVID-19 02/01/2021 02/01/202102/01/2021 3:10 PM CDT documented as of this encounter Care Teams Careers Counsellor Relationship Specialty Start Date End Date Nicole Blank MD [address] [phone] PCP - General Family Practice 10/02/13 documented as of this encounter
--- OUTSIDE RECORDS SUMMARY | 2025-03-01 06:25 | XMS_ITS | Encounter Summary ---
Author Organization [facility] Address [address] [place] [address] Care Team Providers Care Remote Broadcast Engineer Name Role Phone Jordan Bautista MD Primary Care Provider [phone] Encounter Details Date Type Department Care Team [...] on file Legal Sex Female 4:28 AM TELETYPESETTER MONITOR Gender Identity Not on file Sexual Orientation Not on file COVID-19 Exposure Response Date Recorded In the last month, have you been in contact with someone who was confirmed or suspected to have Coronavirus / COVID-19? No / Unsure 08/31/2021 11:21 AM TELETYPESETTER MONITOR documented as of this encounter Plan of Treatment Upcoming Encounters Date Type Department Care Team (Late Contact Info) Description 03/06/2025 9:00 AM CDT Office Visit [facility] [address] [address] Ramona Caballero FNP [address] [address] 04/10/2025 3:00 PM CDT Office Visit [facility] [address] [place] [address] Jordan Bautista MD [address] [place] [address] 05/21/2025 9:00 AM CDT Appointment [facility] [address] [place] [address] 11/27/2025 8:00 AM CDT Office Visit [facility] [address] [place] [address] Kelly Donohue, [facility] [address] [place] [address] documented as of this encounter Visit Diagnoses Not on filedocumented in this encounter Additional Health Concerns Infection Onset Date Last Indicated Resolved Time R/O COVID-19 09/22/2024 09/22/2024 09/23/2024 8:27 AM TELETYPESETTER MONITOR COVID-19 10/27/2024 10/27/2024 11/16/2024 1:16 AM CDT documented as of this encounter Care Teams Remote Broadcast Engineer Relationship Specialty Start Date End Date Jordan Bautista MD [address] [place] [address] PCP - General Family Practice 08/24/21 documented as of this encounter
--- OUTSIDE RECORDS SUMMARY | 2025-03-01 06:25 | XMS_ITS | Encounter Summary ---
Author Organization [facility] Address [address] [place] [address] Care Team Providers Care Service Director Name Role Phone Nicole Blank MD Primary Care Provider Encounter Details Date Type Department Care Team (Latest Contact Info) Description 09/08/2005 Outpatient Historical [facility] Medicine [place] 104 [facility] 60 [place] [address] Shukri Teran DO NO ADDRESS ON FILE HYPERLIPIDEMIA NEC/NOS (Primary Dx); HYPOPOTASSEMIA Social History Tobacco Use Types Packs/Day Years Used Date Smoking Tobacco: Never Assessed Comments Unknown Sex and Gender Information Value Date Recorded Sex Assigned at Not on file Legal Sex Female 4:03 AM TESTER/LIFT TRUCKER Gender Identity Not on file Sexual Orientation Not on file documented as of this encounter Plan of Treatment Not on file documented as of this encounter Visit Diagnoses Diagnosis Other and unspecified hyperlipidemia- Primary Hypopotassemia documented in this encounter Additional Health Concerns Infection Onset Date Last Indicated Resolved Time R/O COVID-19 04/27/2020 04/27/2020 04/29/2020 2:15 AM CDT R/O COVID-19 02/01/2021 02/01/2021 02/01/2021 3:10 PM CDT documented as of this encounter Care Teams Service Director Relationship Specialty Start Date End Date Nicole Blank MD [address] [address] PCP - General Family Practice 10/02/13 documented as of this encounter
--- OUTSIDE RECORDS SUMMARY | 2025-03-01 06:25 | XMS_ITS | Encounter Summary ---
Author Organization [facility] Address [address] [place] [address] Care Team Providers Care Assembler Garment Form Name Role Phone Jordan Bautista MD Primary Care Provider [phone] Encounter Details Date Type Department Care Team (Late st Contact Info) Description 02/24/2025 External Device Data [facility] ABSTRACTION Provider, Abstract NO ADDRESS ON FILE Social History Tobacco Use Types Packs/Day Years Used Date Smoking Tobacco: Never Smokeless Tobacco: Never Alcohol Use Standard Drinks/Week Comments No 0 (1 standard drink = 0.6 oz pur e alcohol) Comments No Sex and Gender Information Value Date Recorded Sex Assigned at Not on file Legal Sex Female 4:28 AM HOT WOUND SPRING PRODUCTION SUPERVISOR Gender Identity Not on file Sexual Orientation Not on file documented as of this encounter Plan of Treatment Upcoming Encounters Date Type Department Care Team (Late st Contact Info) Description 03/06/2025 9:00 AM CDT Office Visit [address] [address] Ramona Caballero FNP [address] [address] 04/10/2025 3:00 PM CDT Office Visit [address] [address] Jordan Bautista MD [address] [address] 05/21/2025 9:[address] [facility] [place] [address] [address] 11/27/2025 8:00 AM CDT Office Visit [facility] Medicine [place] [address] [phone] Kelly Donohue, [facility] [address] [phone] documented as of this encounter Visit Diagnoses Not on filedocumented in this encounter Care Teams Assembler Garment Form Relationship Specialty Start Date End Date Jordan Bautista MD [address] [facility] [address] PCP - General Family Practice 08/24/21 documented as of this encounter
--- OUTSIDE RECORDS SUMMARY | 2025-03-01 06:25 | XMS_ITS | Encounter Summary ---
Author Organization [facility] Address [address] [place] [address] Care Team Providers Care Chef Assistant Name Role Phone Jordan Bautista MD Primary Care Provider [phone] Encounter Details Date Type Department Care Team [...] on file Legal Sex Female 4:28 AM CIRCULAR RIPSAW OPERATOR Gender Identity Not on file Sexual Orientation Not on file COVID-19 Exposure Response Date Recorded In the last month, have you been in contact with someone who was confirmed or suspected to have Coronavirus / COVID-19? No / Unsure 08/31/2021 11:21 AM CIRCULAR RIPSAW OPERATOR documented as of this encounter Plan of Treatment Upcoming Encounters Date Type Department Care Team (Late Contact Info) Description 03/06/2025 9:00 AM CDT Office Visit [facility] [address] [address] Ramona Caballero FNP [address] [address] 04/10/2025 3:00 PM CDT Office Visit [facility] [address] [place] [address] Jordan Bautista MD [address] [place] [address] 05/21/2025 9:00 AM CDT Appointment [facility] [address] [place] [address] 11/27/2025 8:00 AM CDT Office Visit [facility] [address] [place] [address] Kelly Donohue, [facility] [address] [place] [address] documented as of this encounter Visit Diagnoses Not on filedocumented in this encounter Additional Health Concerns Infection Onset Date Last Indicated Resolved Time R/O COVID-19 09/22/2024 09/22/2024 09/23/2024 8:27 AM CIRCULAR RIPSAW OPERATOR COVID-19 10/27/2024 10/27/2024 11/16/2024 1:16 AM CDT documented as of this encounter Care Teams Chef Assistant Relationship Specialty Start Date End Date Jordan Bautista MD [address] [place] [address] PCP - General Family Practice 08/24/21 documented as of this encounter
--- OUTSIDE RECORDS SUMMARY | 2025-03-01 06:25 | XMS_ITS | Encounter Summary ---
Author Organization [facility] Address [address] [place] [address] Care Team Providers Care Manager Creative Services Name Role Phone Nicole Blank MD Primary Care Provider Encounter Details Date Type Department Care Team (Latest Contact Info) Description 08/24/2005 Outpatient Historical [facility] Family Medicine [place] 104 [facility] 60 [place] [address] Terese Palomino, EMERGENCY SERVICES PROFESSIONAL [address] [place] [address] ACUTE BRONCHITIS (Primary Dx) Social History Tobacco Use Types Packs/Day Years Used Date Smoking Tobacco: Never Assessed Comments Unknown Sex and Gender Information Value Date Recorded Sex Assigned at Not on file Legal Sex Female 4:03 AM SALES REPRESENTATIVE HEALTH INSURANCE Gender Identity Not on file Sexual Orientation [...] as of this encounter Care Teams Manager Creative Services Relationship Specialty Start Date End Date Nicole Blank MD [address] [address] PCP - General Family Practice 10/02/13 documented as of this encounter
--- OUTSIDE RECORDS SUMMARY | 2025-03-01 06:25 | XMS_ITS | Encounter Summary ---
Author Organization [facility] Address [address] [place] [address] Care Team Providers Care Fruit Farmer Name Role Phone Nicole Blank MD Primary Care Provider Encounter Details Date Type Department Care Team (Latest Contact Info) Description 10/10/2005 Outpatient Historical [facility] Medicine [place] 104 [facility] 60 [place] [address] Shukri Teran DO NO ADDRESS ON FILE HYPOPOTASSEMIA (Primary Dx) Social History Tobacco Use Types Packs/Day Years Used Date Smoking Tobacco: Never Assessed Comments Unknown Sex and Gender Information Value Date Recorded Sex Assigned at Not on file Legal Sex Female 4:03 AM SERVICES REP Gender Identity Not on file Sexual Orientation Not on file documented as of this encounter Plan of Treatment Not on file documented as of this encounter Visit Diagnoses Diagnosis Hypopotassemia- Primary documented in this encounter Additional Health Concerns Infection Onset Date Last Indicated Resolved Time R/O COVID-19 04/27/2020 04/27/2020 04/29/2020 2:15 AM CDT R/O COVID-19 02/01/2021 02/01/2021 02/01/2021 3:10 PM CDT documented as of this encounter Care Teams Fruit Farmer Relationship Specialty Start Date End Date Nicole Blank MD [address] [phone] PCP - General Family Practice 10/02/13 documented as of this encounter
--- OUTSIDE RECORDS SUMMARY | 2025-03-01 06:25 | XMS_ITS | Encounter Summary ---
Author Organization [facility] Address [address] [place] [address] Care Team Providers Care Claim Processing Specialist Name Role Phone Nicole Blank MD Primary Care Provider Encounter Details Date Type Department Care Team (Latest Contact Info) Description 09/16/1999 Outpatient Historical [facility] [place] 104 [facility] 60 [place] [address] Shukri Teran DO NO ADDRESS ON FILE Acute bronchitis (Primary Dx) Social History Tobacco Use Types Packs/Day Years Used Date Smoking Tobacco: Never Assessed Comments Unknown Sex and Gender Information Value Date Recorded Sex Assigned at Not on file Legal Sex Female 4:03 AM ARMATURE AND ROTOR WINDER Gender Identity Not on file Sexual Orientation [...] documented as of this encounter Care Teams Claim Processing Specialist Relationship Specialty Start Date End Date Nicole Blank MD [address] [phone] PCP - General Family Practice 10/02/13 documented as of this encounter
--- OUTSIDE RECORDS SUMMARY | 2025-03-01 06:25 | XMS_ITS | Encounter Summary ---
Author Organization [employer] [facility] Address [address] [place] [address] Care Team Providers Care Java Sql Developer Name Role Phone Nicole Blank MD Primary Care Provider Encounter Details Date Type Department Care Team (Late st Contact Info) Description 08/11/2015 Ancillary Orders [facility] [place] [address] [place] [address] Francisco Hensley PA NO ADDRESS ON FILE Shortness of breath (Primary Dx) Social History Tobacco Use Types Packs/Day Years Used Date Smoking Tobacco: Never Smokeless Tobacco: Never Alcohol Use Standard Drinks/Week Comments No 0 (1 standard drink = 0.6 oz pur e alcohol) Comments No Sex and Gender Information Value Date Recorded Sex Assigned at Not on file Legal Sex Female 4:03 AM OBSTETRICIAN Gender Identity Not on file Sexual Orientation Not on file Occupation Industry Job Start Date Job End Date Not on file Not on file Not on file Not on file Not on file Not on file Not on file Not on file documented as of this encounter Plan of Treatment Not on file documented as of this encounter Results * XR CHEST PA AND LATERAL (08/11/2015 2:28 PM OBSTETRICIAN) Anatomical Region Laterality Modality Chest Computed Radiogr aphy 08/11/2015 2:15 PM OBSTETRICIAN Narrative 08/12/2015 9:24 AM OBSTETRICIAN PROCEDURE XR CHEST, 2 views, 11 August 2015 COMPARISON Current: PA and lateral chest Prior: no previous studies available for comparison DESCRIPTION Frontal view of the chest shows no infiltrate or atelectasis and the cardiomediastinal silhouette appears essentially normal. There is mild elevation of the right diaphragm. Slightly widened superior mediastinum likely indicates tortuous great vessels. Metallic necklace artifact is noted. On the lateral view, no infiltrate or spine sign is seen. Costophrenic angles are clear of effusion posteriorly. IMPRESSION no acute infiltrate or congestion seen Procedure Note Dusty Lane MD - 08/12/2015 PROCEDURE XR CHEST, 2 views, 11 August 2015 COMPARISON Current: PA and lateral chest Prior: no previous studies available for comparison DESCRIPTION Frontal view of the chest shows no infiltrate or atelectasis and the cardiomediastinal silhouette appears essentially normal. There is mild elevation of the right diaphragm. Slightly widened superior mediastinum likely indicates tortuous great vessels. Metallic necklace artifact is noted. On the lateral view, no infiltrate or spine sign is seen. Costophrenic angles are clear of effusion posteriorly. IMPRESSION no acute infiltrate or congestion seen Francisco [facility] ORDERABLES Final Result documented in this encounter Visit Diagnoses Diagnosis Shortness of breath- Primary Shortness of breath documented in this encounter Additional Health Concerns Infection Onset Date Last Indicated Resolved Time R/O COVID-19 04/27/2020 04/27/2020 04/29/2020 2:15 AM CDT R/O COVID-19 02/01/2021 02/01/2021 02/01/2021 3:10 PM CDT documented as of this encounter Care Teams Java Sql Developer Relationship Specialty Start Date End Date Nicole Blank MD [address] [facility], [facility] [address] [place] [address] PCP - General Family Practice 10/02/13 documented as of this encounter
--- OUTSIDE RECORDS SUMMARY | 2025-03-01 06:25 | XMS_ITS | Encounter Summary ---
Author Organization [facility] Address [address] [place] [address] Care Team Providers Care Hoop Riveting Machine Operator Name Role Phone Nicole Blank MD Primary Care Provider Encounter Details Date Type Department Care Team (Late st Contact Info) Description 08/20/2007 Outpatient Historical [facility] Medicine [address] [address] Shukri Teran DO NO ADDRESS ON FILE Social History Tobacco Use Types Packs/Day Years Used Date Smoking Tobacco: Never Assessed Comments Unknown Sex and Gender Information Value Date Recorded Sex Assigned at Not on file Legal Sex Female 4:03 AM MUFFLER TENDER Gender Identity Not on file Sexual [...] documented as of this encounter Care Teams Hoop Riveting Machine Operator Relationship Specialty Start Date End Date Nicole Blank MD [address] [address] PCP - General Family Practice 10/02/13 documented as of this encounter
--- OUTSIDE RECORDS SUMMARY | 2025-03-01 06:25 | XMS_ITS | Encounter Summary ---
Author Organization [facility] Address [address] [place] [address] Care Team Providers Care Life Skills Consultant Name Role Phone Jordan Bautista MD Primary Care Provider [phone] Reason for Visit * Reason Onset Date Comments Lab Results 02/23/2025 Results Encounter Details Date Type Department Care Team (Latest Contact Info) Description 02/23/2025 Results Follow-Up [facility] [place] [address] [address] Ramona Caballero, [facility] [address] [address] BASIC METABOLIC PANEL, CBC WITH DIFFERENTIAL Social History Tobacco Use Types Packs/Day Years Used Date Smoking Tobacco: Never Smokeless Tobacco: Never Alcohol Use Standard Drinks/Week Comments No 0 (1 standard drink = 0.6 oz pur e alcohol) Comments No Sex and Gender Information Value Date Recorded Sex Assigned at Not on file Legal Sex Female 4:28 AM SQL CONSULTANT Gender Identity Not on file Sexual Orientation Not on file documented as of this encounter Miscellaneous Notes * Telephone Encounter - Maritza Jaime RN - 02/23/2025 2:50 PM CDT 02/23/2025 2:50 PM Called and notified patient of results. Voiced understanding. Maritza DALEY * Telephone Encounter - Maritza Jaime RN - 02/23/2025 2:50 PM CDT ----- Message from Crystal Federico sent at 02/23/2025 8:16 AM CDT ----- Labs are stable Crystal Faizan Federico, [employer], 02/23/2025 8:16 AM * Telephone Encounter - Moris Correa - 02/23/2025 2:13 PM CDT Copied from [facility] #[id number]. Topic: CPA Information Request - Results >> Feb 23, 2025 2:12 PM Moris Valverde wrote: Caller is requesting information about results from an order. ? Caller Name: Omayra Ryan Callback Number: Telephone Information: Test Name: informed that all labs are stable. Wanting to know what we think of her blood pressure. Results Encounter notes are: In chart and clinician noted CC okay to provide information Call Notes: Results were given and the patient has additional questions * Telephone Encounter - Maritza Jaime RN - 02/23/2025 10:14 AM CDT 02/23/2025 10:14 AM No answer. No voicemail or answering machine. Will continue to try to reach patient/caregiver. . Ifpatient/caregiver calls back, contact center may tell caller Labs are stable . Carmen Salas RN * Telephone Encounter - Maritza Jaime RN - 02/23/2025 10:14 AM CDT ----- Message from Crystal Federico sent at 02/23/2025 8:16 AM CDT ----- Labs are stable Crystal D Federico, [employer], 02/23/2025 8:16 AM documented in this encounter Plan of Treatment Upcoming Encounters Date Type Department Care Team (Late st Contact Info) Description 03/06/2025 9:00 AM CDT Office Visit [facility] [address] [place] [address] Ramona Caballero, [facility] [address] [place] [address] 04/10/2025 3:00 PM CDT Office Visit [facility] [address] [place] [address] Jordan Bautista MD [address] [place] [address] 05/21/2025 9:00 AM CDT Appointment [facility] [place] [address] [place] [address] 11/27/2025 8:00 AM CDT Office Visit [facility] [address] [place] [address] Kelly Donohue, [facility] [address] [place] [address] documented as of this encounter Visit Diagnoses Not on filedocumented in this encounter Care Teams Life Skills Consultant Relationship Specialty Start Date End Date Jordan Bautista MD [address] [facility] [place] [address] PCP - General Family Practice 08/24/21 documented as of this encounter
--- OUTSIDE RECORDS SUMMARY | 2025-03-01 06:25 | XMS_ITS | Encounter Summary ---
Author Organization [facility] Address [address] [place] [address] Care Team Providers Care Manager Digital Name Role Phone Nicole Blank MD Primary Care Provider Reason for Referral * Outpatient Services (Routine) - Closed Specialty Diagnoses / Procedures Referred By Carlee cordova Referred To Contact Diagnoses Screening mammogram Procedures MAMMO SCREENING BILAT Shukri Teran DO NO ADDRESS ON FILE Referral ID Status Reason Start Date Expiration Date Visits Re quested Visits Authorized [id number] Closed 02/09/2011 02/09/2012 1 1 Encounter Details Date Type Department Care Team (Late st Contact Info) Description 02/09/[address] 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 This examination was reviewed with the aid of a computer-aided detection system(CAD). The breast tissue density is average. No significant new findings since the prior mammogram(s). Procedure Note Fernando Bonds MD - 02/10/2011 Bilateral Mammogram Reason for Exam: Screening Comparison: Comparison is made with the prior exam(s) dated12.6.04+2.9.06 Findings: Bilateral CC and MLO views were obtained. This examination was reviewed with the aid of a computer-aided detectionsystem(CAD). The breast tissue density is average. No significant new findings since the prior mammogram(s). Shukri Teran DO MAMMO ORDERABLES Final Result documented in this encounter Visit Diagnoses Diagnosis Screening mammogram Other screening mammogram documented in this encounter Additional Health Concerns Infection Onset Date Last Indicated Resolved Time R/O COVID-19 04/27/2020 04/27/2020 04/29/2020 2:15 AM CDT R/O COVID-19 02/01/2021 02/01/2021 02/01/2021 3:10 PM CDT documented as of this encounter Care Teams Manager Digital Relationship Specialty Start Date End Date Nicole Blank MD [address] [address] PCP - General Family Practice 10/02/13 documented as of this encounter
--- OUTSIDE RECORDS SUMMARY | 2025-03-01 06:25 | XMS_ITS | Clinical Summary ---
Author Organization [facility] Address [address] [place] [address] Care Team Providers Care College Associate Name Role Phone Nicole Blank MD Primary Care Provider Allergies Active Allergy Reactions Criticality Noted Date Comments Atorvastatin Muscle Pain Low 09/25/2008 Azithromycin Nausea and Vomiting Low 09/25/2008 Ezetimibe Muscle Pain Low 09/25/2008 Gemfibrozil Muscle Pain Low 09/25/2008 Pravastatin Muscle Pain Low 07/31/2018 Ranitidine Hcl Muscle Pain Low 05/22/2018 Sulfa (Sulfonamide Antibiotics) Rash Low 09/25/2008 Tobramycin Other (See Comments) 09/10/2013 Made eye bloodshot, swelling and some nausea, diarrhea per pt Medications fluticasone propionate (FLONASE) 50 mcg/spray [place], Suspension nasal inhalerIndicatio ns:Allergic rhinitis, unspecified seasonality, unspecified trigger Administer 2 Sprays in each nostril daily. 16 Gram 1 0 Active promethazine-dex tromethorphan (PHENERGAN-DM) 6.25-15 mg/5 mL syrup Take 5 mL by mouth every 6 hours as needed (Sinus and drainage). 120 mL 1 0 Active simvastatin (ZOCOR) 40 mg tablet TAKE 1 TABLET BY MOUTH ONCE DAILY AT BEDTIME 90 Tablet 1 0 Active cyclobenzaprine (FLEXERIL) 10 mg tablet TAKE 1 TABLET BY MOUTH ONCE DAILY AT NIGHT NEEDED FOR DISCOMFORT OR SPASM 90 Tablet 1 1 Active meloxicam (MOBIC) 7.5 mg tablet Take 2 tablets by mouth once daily 180 Tablet 1 1 Active triamterene-hydr oCHLOROthiazide (DYAZIDE) 37.5-25 mg capsule Take 1 Capsule by mouth daily in the morning. 90 Capsule 1 Active Additional Information Patient taking differently:1 Capsule Oral,(No frequency reported), Every other day, Reported on 12/29/2020 atenoloL (TENORMIN) 50 mg tablet Take 2 Tablets (100 mg) by mouth daily. 180 Tablet 1 1 Active lisinopriL (PRINIVIL) 40 mg tablet Take 1 Tablet (40 mg) by mouth daily. 90 Tablet 3 1 Active alendronate (Fosamax) 70 mg tablet Take 1 Tablet (70 mg) by mouth every 7 days. empty stomach before other meds,with 8oz of water, stay upright 30 min 12 Tablet 3 1 Active benzonatate (TESSALON) 200 mg capsule Take 1 Capsule (200 mg) by mouth 3 times daily. 20 Capsule 1 Active Active Problems Problem Noted Date Diagnosed Date Vitamin D deficiency 03/21/2012 Overview (01/15/2013): 25 Vitamin D: 32 (01/23); 11 (03/24) Breast CA screening 03/18/2012 Overview (03/18/2012): Mammo: 02/21 Osteoporosis 03/18/2012 Overview (03/21/2012): BMD (02/20): Spine -3.6, Hip -2.5 Vitamin D: 11 (03/24) Colon cancer screening 03/18/2012 Overview (01/20/2013): Colonoscopy: Not yet Hyperlipidemia 03/18/2012 Overview (01/15/2013): LDL: 130 (01/23); 148 (03/24) HDL: 41 (01/23); 45 (03/24) T (01/23); 252 (03/24) Intolerant to multiple medications Osteoarthritis, knee 03/18/2012 Overview (03/19/2012): Anterior medial approach is difficult for injections Hypokalemia 02/14/2011 GERD (gastroesophageal reflux disease) 0 Hypertension 09/25/2008 Immunizations Immunization Administration Dates Next Due ([place])(12 YR UP) COVID-19 VACCINE - EMERGENCY USE AUTHORIZATION, MRNA, [id number](PF) 30 MCG/0.3 ML IM SUSP 11/25/2020,11/04/2020 (PNEUMOVAX 23)(50 YRS UP) PN EUMOCOCCAL POLYSACCHARIDE (PPV23) 0.5 ML, IM 03/18/2012,06/24/2004 Influenza Seasonal Unspecifi ed Formulation IM 05/08/2020,05/18/2005,06/05/2003,05/16 Influenza Vaccine High Dose 65+ Yrs IM 0 05/07/2019,06/05/2018,05/02/2017,06/21,05/26/2015,05/20/2014 Influenza Vaccine Split 3+ Yrs IM 05/07/2012 Influenza Vaccine Split 3+ Yrs PF IM 06/19/2013, 05/05/2011 Family History Medical History Relation Name Comments Cancer Father Renal Cancer Kidney Disease Father Heart Disease Mother Cancer Sister 1 Cervical Cancer Cancer Sister 2 Bone Cancer (Sp ine) Breast Cancer Neg Hx Colon Cancer Neg Hx Ovarian Cancer Neg Hx Relation Name Status Comments Brother Alive Father Mother Sister 1 Alive Sister 2 Social History Tobacco Use Types Packs/Day Years Used Date Smoking Tobacco: Never Smokeless Tobacco: Never Tobacco Cessation:Counseling Given: Yes Alcohol Use Standard Drinks/Week Comments No 0 (1 standard drink = 0.6 oz pur e alcohol) Comments No Sex and Gender Information Value Date Recorded Sex Assigned at Not on file 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 Gender Identity Not on file Sexual Orientation Not on file Occupation Industry Job Start Date Job End Date Not on file Not on file Not on file Not on file Not on file Not on file Not on file Not on file Last Filed Vital Signs Vital Sign Reading Time Taken Comments Blood Pressure 140/69 01/24/2021 2:21 PM CDT Pulse 66 01/24/2021 2:21 PM CDT Temperature 36.2 C (97.1 F) 01/24/2021 2:21 PM CDT Respiratory Rate 17 01/24/2021 2:21 PM CDT Oxygen Saturation 96% 01/24/2021 2:21 PM CDT Inhaled Oxygen Concentration - - Weight 66 kg (145 lb 6.4 oz) 01/24/2021 2:21 PM CDT Height 149.9 cm (4' 11 ) 01/24/2021 2:21 PM CDT Body Mass Index 29.37 01/24/2021 2:21 PM CDT Plan of Treatment Health Maintenance Due Date Last Done Comments DTAP/TDAP/TD VACCINES (1 - Tdap) 1964 Traditional Medicare (ACO) A nnual Wellness Visit 1964 ZOSTER VACCINE (1 of 2) 10/25/1995 PNEUMOCOCCAL VACCINE 50+ YEA RS (2 of 2 - PCV) 03/18/2013 03/18/2012, 06/24/2004 RSV VACCINE (60+ or ) (1 - 1-dose 75+ series) 2020 COVID-19 Vaccine (3 - 2023-2 5 season) 2024 11/25/2020, 11/04/2020 INFLUENZA VACCINE (#1) 2025 0, 05/07/2019, 06/05/2018, Additional history exists OSTEOPOROSIS SCREENING 07/11/2025 3, 12/29/2020, 12/29/2020, Additional history exists Colorectal Cancer Screening Discontinued FIT/FOBT Q 1 year Discontinued 07/29/2019, , 05/03/2001, Additional history exists COLORECTAL SCREENING Discontinued FIT-DNA Q 3 years Discontinued Flex Sig/CT Colonography Q 5 years Discontinued Procedures Procedure Name Priority Date/Time Associated Diagnosis Comments XR DEXA BONE DENSITY AXIAL 1 OR MORE SITES Routine 12/29/2020 12:44 PM CDT Osteoporosis, unspecified osteoporosis type, unspecified pathological fracture presence OCCULT BLOOD IMMUNOASSAY, COLORECTAL SCREEN Routine 07/29/2019 4:29 PM SALES OPERATIONS ASSISTANT Encounter for screening for malignant neoplasm of colon from Last 3 Months or Most Recently Relevant to Health Maintenance Results * XR DEXA BONE DENSITY AXIAL 1 OR MORE SITES (12/29/2020 12:44 PM CDT) Anatomical Region Laterality Modality Digital Radiogra phy 12/29/2020 12:4 5 PM CDT Impressions 12/29/2020 12:51 PM CDT IMPRESSION: Osteoporosis. No significant change. NOF guidelines recommend consideration of FDA-approved medical therapies in patients with FRAX determined 10-year probabilities of hip/major osteoporosis-related fractures equal or greater than 3%/20% respectively. Consider assessing fracture risk using the FRAX analysis tool for guidance of clinical management available online at www.shef.ac.uk/FRAX/. Enter [employer] for Select DXA and the Femoral Neck BMD value. Narrative 12/29/2020 12:51 PM CDT DEXA Evaluation of the Lumbar Spine and Left Proximal Femur Reason for Consultation: Osteoporosis screening.Evaluation of bone mineral density. The following absorptiometry data were obtained. The quality of this examination is acceptable with regards to count density, processed images, data display and lack of important artifacts (including but not limited to motion and attenuation artifacts). Comparison: 02/07/2011, 06/19/2018 L1-L4 BMD (g/cm2): 0.696 Adult T-score: -3.2 Left Femoral Neck BMD (g/cm2): 0.523 Adult T-score: -2.9 Left Total Hip BMD (g/cm2): 0.636 Adult T-score: -2.5 N.B. Changes in density of <=0.05 g/cm2 are not statistically significant. Definitions: T-score > -0.99 = Normal T-score -1.00 to -1.49 = mild osteopenia T-score -1.50 to -1.99 = moderate osteopenia T-score -2.00 to -2.49 = severe osteopenia T-score < -2.50 = osteoporosis RECOMMENDATIONS: Normal: Low risk for fracture - f/u in 2 years Mild/Mod osteopenia: Moderate risk for fracture - f/u in 1 year Severe osteopenia: Moderate/high risk for fracture - f/u in 1 year Osteoporosis: High risk for fracture - f/u in 1 year Procedure Note Curt Brooke, DO - 12/29/2020 DEXA Evaluation of the Lumbar Spine and Left Proximal Femur Reason for Consultation: Osteoporosis screening.Evaluation of bone mineral density. The following absorptiometry data were obtained. The quality of this examination is acceptable with regards to count density, processed images, data display and lack of important artifacts (including but not limited to motion and attenuation artifacts). Comparison: 02/07/2011, 06/19/2018 L1-L4 BMD (g/cm2): 0.696 Adult T-score: -3.2 Left Femoral Neck BMD (g/cm2): 0.523 Adult T-score: -2.9 Left Total Hip BMD (g/cm2): 0.636 Adult T-score: -2.5 N.B. Changes in density of <=0.05 g/cm2 are not statistically significant. Definitions: T-score > -0.99 = Normal T-score -1.00 to -1.49 = mild osteopenia T-score -1.50 to -1.99 = moderate osteopenia T-score -2.00 to -2.49 = severe osteopenia T-score < -2.50 = osteoporosis RECOMMENDATIONS: Normal: Low risk for fracture - f/u in 2 years Mild/Mod osteopenia: Moderate risk for fracture - f/u in 1 year Severe osteopenia: Moderate/high risk for fracture - f/u in 1 year Osteoporosis: High risk for fracture - f/u in 1 year IMPRESSION: Osteoporosis. No significant change. NOF guidelines recommend consideration of FDA-approved medical therapies in patients with FRAX determined 10-year probabilities of hip/major osteoporosis-related fractures equal or greater than 3%/20% respectively. Consider assessing fracture risk using the FRAX analysis tool for guidance of clinical management available online at www.shef.ac.uk/FRAX/. Enter [employer] for Select DXA and the Femoral Neck BMD value. us Francisco [facility] ORDERABLES Final Result * OCCULT BLOOD IMMUNOASSAY, COLORECTAL SCREEN (07/29/2019 4:29 PM SALES OPERATIONS ASSISTANT) OCCULT BLOOD, STOOL Negative Negative 07/30/2019 12:13 PM SALES OPERATIONS ASSISTANT [facility] Stool STOOL SPECIMEN / Unknown 07/29/2019 4:29 PM SALES OPERATIONS ASSISTANT 07/29/2019 4:29 PM SALES OPERATIONS ASSISTANT us Nicole Blank MD BODY FLUIDS AND STOOLS Bree darling Result [facility] CLIA# [id number] [facility] [place] [address] from Last 3 Months or Most Recently Relevant to Health Maintenance Insurance MEDICARE PART A AND B GENERIC PAYOR PATIENT ACCESS REGISTRAR LIFE Care Teams College Associate Relationship Specialty Start Date End Date Nicole Blank MD [address] [address] PCP - General Family Practice 10/02/13
--- OUTSIDE RECORDS SUMMARY | 2025-03-01 06:25 | XMS_ITS | Encounter Summary ---
Author Organization [facility] Address [address] [place] [address] Care Team Providers Care Boilermaker Fitter Name Role Phone Jordan Bautista MD Primary Care Provider [phone] Encounter Details Date Type Department Care Team [...] on file Legal Sex Female 4:28 AM COLLEGE COACH Gender Identity Not on file Sexual Orientation Not on file COVID-19 Exposure Response Date Recorded In the last month, have you been in contact with someone who was confirmed or suspected to have Coronavirus / COVID-19? No / Unsure 08/31/2021 11:21 AM COLLEGE COACH documented as of this encounter Plan of Treatment Upcoming Encounters Date Type Department Care Team (Late Contact Info) Description 03/06/2025 9:00 AM CDT Office Visit [facility] [address] [address] Ramona Caballero FNP [address] [address] 04/10/2025 3:00 PM CDT Office Visit [facility] [address] [place] [address] Jordan Bautista MD [address] [place] [address] 05/21/2025 9:00 AM CDT Appointment [facility] [address] [place] [address] 11/27/2025 8:00 AM CDT Office Visit [facility] [address] [place] [phone] Kelly Donohue, [facility] [address] [place] [address] documented as of this encounter Visit Diagnoses Not on filedocumented in this encounter Additional Health Concerns Infection Onset Date Last Indicated Resolved Time R/O COVID-19 09/22/2024 09/22/2024 09/23/2024 8:27 AM COLLEGE COACH COVID-19 10/27/2024 10/27/2024 11/16/2024 1:16 AM CDT documented as of this encounter Care Teams Boilermaker Fitter Relationship Specialty Start Date End Date Jordan Bautista MD [address] [facility] [place] [address] PCP - General Family Practice 08/24/21 documented as of this encounter
--- OUTSIDE RECORDS SUMMARY | 2025-03-01 06:25 | XMS_ITS | Encounter Summary ---
Author Organization [facility] Address [address] [place] [address] Care Team Providers Care Advanced Seal Delivery System Name Role Phone Jordan Bautista MD Primary Care Provider [phone] Encounter Details Date Type Department Care Team [...] on file Legal Sex Female 4:28 AM TRAINING ASSOCIATE Gender Identity Not on file Sexual Orientation Not on file COVID-19 Exposure Response Date Recorded In the last month, have you been in contact with someone who was confirmed or suspected to have Coronavirus / COVID-19? Unable to assess 09/12/2021 1:14 PM TRAINING ASSOCIATE documented as of this encounter Plan of Treatment Upcoming Encounters Date Type Department Care Team (Late Contact Info) Description 03/06/2025 9:00 AM CDT Office Visit [facility]3] Family Medicine [place] [address] [address] Ramona Caballero FNP [address] [address] 04/10/2025 3:00 PM CDT Office Visit [facility] [address] [place] [address] Jordan Bautista MD [address] [place] [address] 05/21/2025 9:00 AM CDT Appointment [facility] [address] [place] [address] 11/27/2025 8:00 AM CDT Office Visit [facility] [address] [place] [address] Kelly Donohue, [facility] [address] [place] [address] documented as of this encounter Visit Diagnoses Not on filedocumented in this encounter Additional Health Concerns Infection Onset Date Last Indicated Resolved Time R/O COVID-19 09/22/2024 09/22/2024 09/23/2024 8:27 AM TRAINING ASSOCIATE COVID-19 10/27/2024 10/27/2024 11/16/2024 1:16 AM CDT documented as of this encounter Care Teams Advanced Seal Delivery System Relationship Specialty Start Date End Date Jordan Bautista MD [address] [facility] [place] [address] PCP - General Family Practice 08/24/21 documented as of this encounter
--- OUTSIDE RECORDS SUMMARY | 2025-03-01 06:25 | XMS_ITS | Encounter Summary ---
Author Organization [facility] Address [address] [place] [address] Care Team Providers Care Hotel Or Motel Receptionist Name Role Phone Nicole Blank MD Primary Care Provider [phone] Encounter Details Date Type Department Care Team (Latest Contact Info) Description 09/10/2000 Outpatient Historical [facility] Medicine- [address] [phone] Teodoro Burt MD [address] [phone] Acute upper respiratory infections of unspecified site (Primary Dx) Social History Tobacco Use Types Packs/Day Years Used Date Smoking Tobacco: Never Assessed Comments Unknown Sex and Gender Information Value Date Recorded Sex Assigned at Not on file 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
--- OUTSIDE RECORDS SUMMARY | 2025-03-01 06:25 | XMS_ITS | Encounter Summary ---
Author Organization [facility] Address [address] [place] [address] Care Team Providers Care Faculty Research Assistant Name Role Phone Nicole Blank MD Primary Care Provider Encounter Details Date Type Department Care Team (Late st Contact Info) Description 07/29/2019 Lab Requisition [facility] [address] [place] [address] Nicole Blank MD [address] [place] [address] Encounter for screening for malignant neoplasm of colon Social History Tobacco Use Types Packs/Day Years Used Date Smoking Tobacco: Never Smokeless Tobacco: Never Alcohol Use Standard Drinks/Week Comments No 0 (1 standard drink = 0.6 oz pur e alcohol) Comments No Sex and Gender Information Value Date Recorded Sex Assigned at Not on file Legal Sex Female 4:03 AM SURVEY ENGINEER Gender Identity Not on file Sexual Orientation Not on file Occupation Industry Job Start Date Job End Date Not on file Not on file Not on file Not on file Not on file Not on file Not on file Not on file documented as of this encounter Plan of Treatment Not on file documented as of this encounter Procedures Procedure Name Priority Date/Time Associated Diagnosis Comments OCCULT BLOOD IMMUNOASSAY, COLORECTAL SCREEN Routine 07/29/2019 4:29 PM SURVEY ENGINEER Encounter for screening for malignant neoplasm of colon documented in this encounter Results * OCCULT BLOOD IMMUNOASSAY, COLORECTAL SCREEN (07/29/2019 4:29 PM SURVEY ENGINEER) OCCULT BLOOD, STOOL Negative Negative 07/30/2019 12:13 PM SURVEY ENGINEER [facility] Stool STOOL SPECIMEN / Unknown 07/29/2019 4:29 PM SURVEY ENGINEER 07/29/2019 4:29 PM SURVEY ENGINEER us Nicole Blank MD BODY FLUIDS AND STOOLS Bree darling Result [facility] CLIA# [id number] [address] [place] [address] documented in this encounter Visit Diagnoses Diagnosis Encounter for screening for malignant neoplasm of colon Special screening for malignant neoplasms, colon documented in this encounter Additional Health Concerns Infection Onset Date Last Indicated Resolved Time R/O COVID-19 04/27/2020 04/27/2020 04/29/2020 2:15 AM CDT R/O COVID-19 02/01/2021 02/01/2021 02/01/2021 3:10 PM CDT documented as of this encounter Care Teams Faculty Research Assistant Relationship Specialty Start Date End Date Nicole Blank MD [address] [facility] [address] [place] [phone] PCP - General Family Practice 10/02/13 documented as of this encounter
--- OUTSIDE RECORDS SUMMARY | 2025-03-01 06:25 | XMS_ITS | Encounter Summary ---
Author Organization [facility] Address [address] [place] [address] Care Team Providers Care Imaging Technician Name Role Phone Nicole Blank MD Primary Care Provider Encounter Details Date Type Department Care Team (Latest Contact Info) Description 06/12/2005 Outpatient Historical [facility] Family Medicine [place] [address] [facility] [address] [place] [address] Shukri Teran DO NO ADDRESS ON FILE MYALGIA AND MYOSITIS NOS (Primary Dx); HYPERLIPIDEMIA NEC/NOS Social History Tobacco Use Types Packs/Day Years Used Date Smoking Tobacco: Never Assessed Comments Unknown Sex and Gender Information Value Date Recorded Sex Assigned at Not on file Legal Sex Female 4:03 AM NUISANCE ANIMAL DAMAGE CONTROL AGENT Gender Identity Not on file Sexual Orientation Not on file documented as of this encounter Plan of Treatment Not on file documented as of this encounter Visit Diagnoses Diagnosis Myalgia and myositis, unspecified- Primary Mylagia and myositis, unspecified Other and unspecified hyperlipidemia documented in this encounter Additional Health Concerns Infection Onset Date Last Indicated Resolved Time R/O COVID-19 04/27/2020 04/27/2020 04/29/2020 2:15 AM CDT R/O COVID-19 02/01/2021 02/01/2021 02/01/2021 3:10 PM CDT documented as of this encounter Care Teams Imaging Technician Relationship Specialty Start Date End Date Nicole Blank MD [address] [address] PCP - General Family Practice 10/02/13 documented as of this encounter
--- OUTSIDE RECORDS SUMMARY | 2025-03-01 06:25 | XMS_ITS | Encounter Summary ---
Author Organization [facility] Address [address] [place] [address] Care Team Providers Care Top Trimmer Name Role Phone Nicole Blank MD Primary Care Provider Encounter Details Date Type Department Care Team (Latest Contact Info) Description 04/29/1999 Outpatient Historical [facility] Medicine [place] [address] [facility] [address] [place] [address] Shukri Teran DO NO ADDRESS ON FILE Anxiety state, unspecified (Primary Dx); Unspecified menopausal and postmenopausal disorder; Other and unspecified hyperlipidemia Social History Tobacco Use Types Packs/Day Years Used Date Smoking Tobacco: Never Assessed Comments Unknown Sex and Gender Information Value Date Recorded Sex Assigned at Not on file Legal Sex Female 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 Gender Identity Not on file Sexual Orientation Not on file documented as of this encounter Plan of Treatment Not on file documented as of this encounter Visit Diagnoses Diagnosis Anxiety state, unspecified- Primary Unspecified menopausal and postmenopausal disorder Other and unspecified hyperlipidemia documented in this encounter Additional Health Concerns Infection Onset Date Last Indicated Resolved Time R/O COVID-19 04/27/2020 04/27/2020 04/29/2020 2:15 AM CDT R/O COVID-19 02/01/2021 02/01/2021 02/01/2021 3:10 PM CDT documented as of this encounter Care Teams Top Trimmer Relationship Specialty Start Date End Date Nicole Blank MD [address] [address] PCP - General Family Practice 10/02/13 documented as of this encounter
--- OUTSIDE RECORDS SUMMARY | 2025-03-01 06:25 | XMS_ITS | Encounter Summary ---
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); HYPERTENSION NOS; HYPERLIPIDEMIA NEC/NOS; SCREENING MAL NEOP-RECTUM Social History Tobacco Use Types Packs/Day Years Used Date Smoking Tobacco: Never Assessed Comments Unknown Sex and Gender Information Value Date Recorded Sex Assigned at Not on file 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 Gender Identity Not on file Sexual Orientation Not on file documented as of this encounter Plan of Treatment Not on file documented as of this encounter Visit Diagnoses Diagnosis Routine gynecological examination- Primary Unspecified essential hypertension Other and unspecified hyperlipidemia Screening for malignant neoplasm of the rectum documented in this encounter Additional Health Concerns Infection Onset Date Last Indicated Resolved Time R/O COVID-19 04/27/2020 04/27/2020 04/29/2020 2:15 AM CDT R/O COVID-19 02/01/2021 02/01/2021 02/01/2021 3:10 PM CDT documented as of this encounter Care Teams Editing Internship Relationship Specialty Start Date End Date Nicole Blank MD [address] [phone] PCP - General Family Practice 10/02/13 documented as of this encounter
--- OUTSIDE RECORDS SUMMARY | 2025-03-01 06:25 | XMS_ITS | Encounter Summary ---
Author Organization [facility] Address [address] [place] [address] Care Team Providers Care Armature Winder Repair Name Role Phone Nicole Blank MD Primary Care Provider Encounter Details Date Type Department Care Team (Latest Contact Info) Description 03/16/2000 Outpatient Historical [facility] Family Medicine [place] 104 [facility] [address] [place] [address] Teodoro Burt MD [address] [address] Other and unspecified hyperlipidemia (Primary Dx) Social History Tobacco Use Types Packs/Day Years Used Date Smoking Tobacco: Never Assessed Comments Unknown Sex and Gender Information Value Date Recorded Sex Assigned at Not on file 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
--- OUTSIDE RECORDS SUMMARY | 2025-03-01 06:25 | XMS_ITS | Encounter Summary ---
Author Organization [facility] Address [address] [place] [address] Care Team Providers Care Student Ministries Director Name Role Phone Nicole Blank MD Primary Care Provider Encounter Details Date Type Department Care Team (Late st Contact Info) Description 07/26/2005 Outpatient Historical [facility] Medicine [address] [address] Shukri Teran DO NO ADDRESS ON FILE Social History Tobacco Use Types Packs/Day Years Used Date Smoking Tobacco: Never Assessed Comments Unknown Sex and Gender Information Value Date Recorded Sex Assigned at Not on file 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
--- OUTSIDE RECORDS SUMMARY | 2025-03-01 06:25 | XMS_ITS | Encounter Summary ---
Author Organization [facility] Address [address] [place] [address] Care Team Providers Care Fraud Examiner Name Role Phone Nicole Blank MD Primary Care Provider [phone] Encounter Details Date Type Department Care Team (Latest Contact Info) Description 12/09/2004 Outpatient Historical [facility] Family Medicine [place] 104 [facility] [address] [place] [address] Shukri Teran DO NO ADDRESS ON FILE Sprain lumbar region (Primary Dx) Social History Tobacco Use Types Packs/Day Years Used Date Smoking Tobacco: Never Assessed Comments Unknown Sex and Gender Information Value Date Recorded Sex Assigned at Not on file 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 Gender Identity Not on file Sexual Orientation Not on file documented as of this encounter Plan of Treatment Not on file documented as of this encounter Visit Diagnoses Diagnosis Sprain lumbar region- Primary Sprain of lumbar region documented in this encounter Additional Health Concerns Infection Onset Date Last Indicated Resolved Time R/O COVID-19 04/27/2020 04/27/2020 04/29/2020 2:15 AM CDT R/O COVID-19 02/01/2021 02/01/2021 02/01/2021 3:10 PM CDT documented as of this encounter Care Teams Fraud Examiner Relationship Specialty Start Date End Date Nicole Blank MD [address] [phone] PCP - General Family Practice 10/02/13 documented as of this encounter
--- OUTSIDE RECORDS SUMMARY | 2025-03-01 06:25 | XMS_ITS | Encounter Summary ---
Author Organization [facility] Address [address] [place] [address] Care Team Providers Care Fine Unhairer Name Role Phone Jordan Bautista MD Primary Care Provider [phone] Encounter Details Date Type Department Care Team [...] on file Legal Sex Female 4:28 AM COMMUNITY HEALTH COUNSELOR Gender Identity Not on file Sexual Orientation Not on file COVID-19 Exposure Response Date Recorded In the last month, have you been in contact with someone who was confirmed or suspected to have Coronavirus / COVID-19? Unable to assess 09/12/2021 1:14 PM COMMUNITY HEALTH COUNSELOR documented as of this encounter Plan of Treatment Upcoming Encounters Date Type Department Care Team (Late Contact Info) Description 03/06/2025 9:00 AM CDT Office Visit [facility] Family Medicine [place] [address] [address] Ramona Caballero FNP [address] [address] 04/10/2025 3:00 PM CDT Office Visit [facility] [address] [place] [address] Jordan Bautista MD [address] [place] [address] 05/21/2025 9:00 AM CDT Appointment [facility] [address] [place] [address] 11/27/2025 8:00 AM CDT Office Visit [facility] [address] [place] [address] Kelly Donohue, [facility] [address] [place] [address] documented as of this encounter Visit Diagnoses Not on filedocumented in this encounter Additional Health Concerns Infection Onset Date Last Indicated Resolved Time R/O COVID-19 09/22/2024 09/22/2024 09/23/2024 8:27 AM COMMUNITY HEALTH COUNSELOR COVID-19 10/27/2024 10/27/2024 11/16/2024 1:16 AM CDT documented as of this encounter Care Teams Fine Unhairer Relationship Specialty Start Date End Date Jordan Bautista MD [address] [facility] [place] [address] PCP - General Family Practice 08/24/21 documented as of this encounter
[2025-03-01] MEDS: dilTIAZem 100 MG in sodium chloride 0.9% (add-van) 100 ML IV (06:34)
[2025-03-01 06:43] LABS: Hematocrit 38.3 % (36-47); Hemoglobin 12.20 g/dL (11.27-16.99); Mean Corpuscular HGB Conc 31.9 g/dL (30-55); Mean Corpuscular Hemoglobin 28.8 pg (27-33); Mean Corpuscular Volume 90.5 fl (85-98); Nucleated Red Blood Cells % 0 %; Platelet Count 192 10^3/cmm (157-399); Red Blood Count 4.23 10^6/uL (3.85-5.65); White Blood Count 6.38 10^3/uL (3.29-11.43)
[2025-03-01 06:45] LABS: Troponin(5th) Baseline 14 ng/L (0-10)
[2025-03-01 06:54] LABS: Alanine Aminotransferase 10 U/L (0-33); Albumin Level 3.7 g/dL (3.5-5.2); Alkaline Phosphatase 85 U/L (35-105); Anion Gap 14.9 (5-19); Aspartate Amino Transferase 17 U/L (0-32); Blood Urea Nitrogen 21 mg/dL (8-23); Calcium 8.2 mg/dL (8.5-10.5); Carbon Dioxide 28 mmol/L (22-29); Chloride 98 mmol/L (98-107); Creatinine Clr Calc Pharmacy 44.3468; Globulin 3.0 g/dL (1.3-4.6); Glucose 154 mg/dL (65-115); NT Pro B Type Natriuretic Pept 785 pg/mL (0-450); Osmolality Calculated 290 mOsm/kg (285-295); Potassium 3.9 mmol/L (3.5-5.1); Sodium 137 mmol/L (136-145); Total Protein 6.7 g/dL (6.6-8.7)
[2025-03-01] MEDS: metoprolol tartrate 1 mg/1 mL SDV 5 mL 5 MG IVP (07:15)
[2025-03-01 07:52] LABS: Glucose Urine UA Negative (Normal); Nitrate Urine Negative (Negative); Specific Gravity, Urine 1.008 (1.005-1.030)
[2025-03-01 07:57] LABS: Add Urine Microscopic? YES
--- NOTE | 2025-03-01 08:18 | ECG_ITS ---
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 Measurements Intervals [place] Rate: 72 P: 0 VA: 0 QRS: 11 QRSD: 82 T: 57 QT: 365 QTc: 400 Interpretive Statements ATRIAL FLUTTER/TACHYCARDIA MODERATE ST DEPRESSION [0.05+ mV ST DEPRESSION] Compared to ECG 03/01/2025 06:11:19 No significant changes Electronically Signed On 03-01-2025 18:38:34 CDT by Chris Anderson M.D. [email or web address]
[2025-03-01 09:00] LABS: Troponin 5 2HR 17.58 ng/L (0-10); Troponin 5 2HR Delta 3.58 ABS# (0-10)
[2025-03-01 12:56] LABS: Troponin 5 6HR 23.26 ng/L (0-10); Troponin 5 6HR Delta 9.26 ng/L (0-12)
--- NOTE | 2025-03-01 13:56 | ECG_ITS ---
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 Measurements Intervals [place] Rate: 97 P: 0 TN: 0 QRS: -2 QRSD: 93 T: 14 QT: 334 QTc: 426 Interpretive Statements atrial fibrillation with a controlled ventricular response rate MODERATE ST DEPRESSION [0.05+ mV ST DEPRESSION] Compared to ECG 03/01/2025 08:23:33 No significant changes Electronically Signed On 03-01-2025 18:38:16 CDT by Chris Anderson M.D. [id number] [id number]
--- NOTE | 2025-03-01 14:44 | PC.NURSE ---
received from er via w/c at 1345.report received.pt is alert and oriented x 4.denies pain or sob at this time.pt is in afib on the monitor.(rate 90's at rest...120's with activity).on cardizem drip at 15 mg/hr.pt oriented to room environment.instructed to notify staff for any sob,chest pain,if needs to fet up,or for any concerns at all.pt verb understanding of instructions
--- NOTE | 2025-03-01 15:53 | USCV_ITS ---
Omayra Ryan Age: 79 Gender: F : 1945 Exam Date: 03/01/2025 18:22 Ordering Phys: Luis Antonio Clemons MD Technologist: Tai Teran Exam Location: [facility] Indication: a fib rvr BP: 137 / 57 HR: 73 Rhythm: Sinus Technical Quality: Adequate MEASUREMENTS (Male / Female) Normal Values 2D ECHO LV Diastolic Diameter PLAX 4.3 cm 4.2 - 5.9 / 3.9 - 5.3 cm IVS Diastolic Thickness 1.5 cm 0.6 - 1.0 / 0.6 - 0.9 cm IVS Systolic Thickness 1.6 cm LVPW Diastolic Thickness 1.5 cm 0.6 - 1.0 / 0.6 - 0.9 cm LVPW Systolic Thickness 1.6 cm LVOT Diameter 2.0 cm LV Ejection Fraction 2D Teich 70.5 % LV Ejection Fraction MOD 4C 81.2 % LV Ejection Fraction MOD 2C 69.8 % LV Ejection Fraction 2C AL 72.8 % LA Diameter 4.4 cm RA Systolic Volume 4C AL 19.3 ml RA Systolic Volume 4C MOD 17.9 ml LA Sys Volume AL 48.9 cm cubed LA Sys Volume Index AL 27.8 cm cubed/m squared Aorta at Sinotubular Diameter 2.0 cm IVC Diameter 1.4 cm M-MODE LA Ao Ratio MM 1.9 AV Cusp Separation MM 1.6 cm DOPPLER AV Peak Velocity 265.0 cm/s LVOT Peak Velocity 134.0 cm/s AV Area Cont Eq vti 3.0 cm squared AV Area Cont Eq pk 1.6 cm squared MV Peak Velocity 163.0 cm/s MV Area PHT 4.8 cm squared Mitral E to A Ratio 3.1 TV Peak Velocity 279.8 cm/s TR Peak Velocity 343.0 cm/s TR Peak Gradient 47.1 mmHg TR Mean Velocity 265.0 cm/s TR Mean Gradient 31.1 mmHg TR Velocity Time Integral 99.9 cm PV Peak Velocity 102.0 cm/s RV Ejection Time 0.3 s FINDINGS Left Ventricle Normal left ventricular size and systolic function, EF 70%.mild left ventricular hypertrophy. No regional wall motion abnormalities. Right Ventricle The right ventricle is normal in size and function. Right Atrium The right atrium is normal in size. Left Atrium Mildly increased left atrial size. Mitral Valve Mild mitral annular calcification. Aortic Valve Thickened aortic valve. Trace aortic valve regurgitation. Tricuspid Valve Mild tricuspid valve regurgitation. Pulmonic Valve Trace pulmonary valve regurgitation. Estimated pulmonary artery peak systolic pressure 26 mmHg Pericardium No pericardial effusion. Aorta Normal aortic annulus size. IVC Normal inferior vena cava. CONCLUSIONS Normal left ventricular size and systolic function, EF 70%.mild left ventricular hypertrophy. No regional wall motion abnormalities. Mildly increased left atrial size. Mild mitral annular calcification. Thickened aortic valve. Trace aortic valve regurgitation. Mild tricuspid valve regurgitation. Trace pulmonary valve regurgitation. Estimated pulmonary artery peak systolic pressure 26 mmHg. Compared to the study from 06/06/2023, there may not be a significant change Dr Chris Anderson MD FACC (Electronically Signed) Final Date: 01 March 2025 19:28 S
--- NOTE | 2025-03-01 16:15 | PM.HP ---
Providers/Chief Complaint Admitting Physician: Luis Antonio Clemons MD Primary Care Provider: Kelly Donohue Chief Complaint: afib History of Present Illness Omayra Ryan is a 79 year old female lives in [place] and states she was awakened from sleep with palpitations. She sat up at the edge of bed and was not really dizzy but continued to have palpitations so went to the living room and use her oximeter which read 123 several times. She called 911 and came to the hospital where she was told she was in a flutter. She states that few years ago she had irregular beat and was started on atenolol and then had more irregular beat years later and was increased to 2 tablets of the 50 mg tablets daily. Also years ago she was told that she had an old NV by EKG but she never noticed chest pain. Patient reports her past medical history of CHF, COPD with no history of smoking, diabetes with blood sugars running 109-120. She does not drink alcohol or smoke and never has even once. 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 Patient is a We discussed CODE STATUS and she wants DNR status Review of Systems Narrative: General no fevers chills she has had weight loss of 10 pounds about 3 to 4 weeks ago with UTI not feeling well. Cardiovascular no chest pain but she did have palpitations she reports some dyspnea on exertion if she walks far fast she has wheezing if weather is hot and humid she has an inhaler. She denies shortness of breath at rest. She was diagnosed with hypoxemia at night and on oxygen 2 L/min. She is not sure if she has obstructive sleep apnea as she was never put on CPAP. GI no nausea vomiting she has occasional diarrhea constipation is occasional but less often than diarrhea positive for hematuria with the E. coli 3 weeks ago seemingly resolved [employer]OR OF [employer]IATION no vaginal bleeding or discharge Hematologic no anemia no clots in legs or lungs Malignancy history negative Neuro no seizures strokes limb weakness Medications/Allergies Home Medications ?Medication ?Instructions ?Recorded ?Confirmed ?Last Taken ?Type CAM BOOT #1 ea 04/22/24 03/01/25 Unknown Rx alprazolam 0.25 mg tablet 0.125 mg PO TID 04/22/24 03/01/25 02/28/25 History omeprazole 20 mg capsule,delayed 20 mg PO DAILY 04/22/24 03/01/25 02/28/25 History release simvastatin 40 mg tablet 40 mg PO DAILY 04/22/24 03/01/25 02/28/25 History triamterene 37.5 1 cap PO QAM 04/22/24 03/01/25 02/27/25 History mg-hydrochlorothiazide 25 mg capsule ASO brace #1 ea 05/14/24 03/01/25 Unknown Rx atenolol 50 mg tablet 100 mg PO DAILY 03/01/25 03/01/25 02/28/25 History calcium 600 mg (as 1 tab PO DAILY 03/01/25 03/01/25 02/28/25 History carbonate)-vitamin D3 5 mcg (200 unit) tablet cyclobenzaprine 10 mg tablet 10 mg PO BEDTIME 03/01/25 03/01/25 02/28/25 History losartan 100 mg tablet 100 mg PO DAILY 03/01/25 03/01/25 02/28/25 History meloxicam 7.5 mg tablet 15 mg PO DAILY 03/01/25 03/01/25 02/28/25 History metformin 500 mg tablet,extended 500 mg PO QAM 03/01/25 03/01/25 02/28/25 07:00 History release 24 hr Allergies Allergy/AdvReac Type Severity Reaction Status Date / Time azithromycin Allergy Unknown Verified 03/01/25 06:11 Sulfa (Sulfonamide Allergy Unknown Verified 10/08/24 14:21 Antibiotics) PFSH Acute PFSH: Medical History (Updated 03/01/25 @ 16:20 by Luis Antonio Clemons MD) Hypertension Presbycusis of both ears Diabetes COPD (chronic obstructive pulmonary disease) Social History (Updated 03/01/25 @ 16:19 by Luis Antonio Clemons MD) Smoking and tobacco/nicotine status: never used tobacco/nicotine Alcohol intake: never Substance/Drug Use: never Additional social history: 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 Vitals/I&O/Wt Last Vital Signs Temp 98.0 F 03/01/25 16:00 Pulse 74 03/01/25 16:00 Resp 19 H 03/01/25 16:00 BP 137/57 03/01/25 16:00 Pulse Ox 96 03/01/25 16:00 O2 Del Method Nasal Cannula 03/01/25 13:48 O2 Flow Rate 2 03/01/25 13:48 03/01/25 03/01/25 03/01/25 06:59 14:59 22:59 Intake Total 500.917 / 500.917 15.125 / 15.125 Balance 500.917 / 500.917 15.125 / 15.125 Weight last 48 hrs Weight 71.809 kg Weight 70.307 kg Physical Exam Narrative: General Well-developed well-nourished overweight female in no acute cardiopulmonary distress CV regular rate and rhythm no loud murmur Lungs diminished breath sounds in the bases poor air movement no crackles or wheezes Abdomen positive bowel tones soft nontender Calves 1+ pretibial edema. No asymmetry Neck no bruits Skin is warm and dry Data 03/01/25 06:20 03/01/25 06:20 A&P Assessment and plan 1. Atrial flutter with rapid ventricular response: Currently on diltiazem drip will check magnesium level and replace potassium to over 4.0. Also will give dose of furosemide and obtain an echocardiogram. Patient currently in atrial flutter with 3-1 block 2. COPD (chronic obstructive pulmonary disease): Stable avoid beta agonist for now. Patient was never a smoker 3. Diabetes: Start 1500-calorie ADA diet and low scale sliding scale insulin 4. Presbycusis of both ears: Patient forgot her hearing aids today and requires us to speak loudly 5. Hypertension: Resume home blood pressure medications including atenolol and losartan PDMP PDMP Reviewed: Not Reviewed Attestations Medical Necessity Statement*: Patient is admitted to the hospital to observation with new onset A-fib start apixaban for anticoagulation and continue with rate control. Will try to adjust for oral regimen and expected hospitalization 1 to 2 days Coding Level of Care Code Acute Code for Chg Fwd Diagnoses Atrial flutter with rapid ventricular response I48.92 COPD (chronic obstructive pulmonary disease) J44.9 Diabetes E11.9 Presbycusis of both ears H91.13 Hypertension I10 Time Spent (min) 70
[2025-03-01] MEDS: FUROsemide 10 mg/mL SDV 2mL 20 MG IVP (17:33)
[2025-03-01] MEDS: dilTIAZem 100 MG in sodium chloride 0.9% (add-van) 100 ML 10 MG IV (17:52)
[2025-03-01 22:17] LABS: Estmated Average Glucose 148; Hemoglobin A1C 6.8 % (4.0-6.0)
[2025-03-01 22:26] LABS: Thyroid Stimulating Hormone 2.57 uIU/mL (0.27-4.20)
[2025-03-01 23:48] LABS: Vitamin B12 383 pg/mL (232-1245)
[2025-03-02] VITALS (12 sets, daily range): BP systolic 111–134; BP diastolic 61–85; PULSE 63–144; RESP 16–26; TEMP 36.1–36.7; O2SAT 87–97
[2025-03-02 04:48] LABS: Hematocrit 39.2 % (36-47); Hemoglobin 12.40 g/dL (11.27-16.99); Mean Corpuscular HGB Conc 31.6 g/dL (30-55); Mean Corpuscular Hemoglobin 28.3 pg (27-33); Mean Corpuscular Volume 89.5 fl (85-98); Nucleated Red Blood Cells % 0 %; Platelet Count 231 10^3/cmm (157-399); Red Blood Count 4.38 10^6/uL (3.85-5.65); White Blood Count 7.08 10^3/uL (3.29-11.43)
[2025-03-02 05:07] LABS: Alanine Aminotransferase 8 U/L (0-33); Albumin Level 3.3 g/dL (3.5-5.2); Alkaline Phosphatase 68 U/L (35-105); Anion Gap 15.7 (5-19); Aspartate Amino Transferase 16 U/L (0-32); Blood Urea Nitrogen 21 mg/dL (8-23); Calcium 8.5 mg/dL (8.5-10.5); Carbon Dioxide 27 mmol/L (22-29); Chloride 101 mmol/L (98-107); Cholesterol 162 mg/dL (0-200); Creatinine Clr Calc Pharmacy 51.7125; Globulin 3.4 g/dL (1.3-4.6); Glucose 123 mg/dL (65-115); HDL Cholesterol 39 mg/dL (60-100); Magnesium 1.7 mg/dL (1.7-2.3); Osmolality Calculated 294 mOsm/kg (285-295); Potassium 3.7 mmol/L (3.5-5.1); Sodium 140 mmol/L (136-145); Total Protein 6.7 g/dL (6.6-8.7); Triglycerides 178 mg/dL (0-150); VLDL Cholestrol Calculation 36 mg/dL (0-30)
[2025-03-02] MEDS: calcium carb-vit d 600mg/400unit 1 Tablet 1 EACH PO (07:57)
--- NOTE | 2025-03-02 08:01 | PC.NURSE ---
Patient says she has an allergy to Lipitor specific. Takes simvastin at home. informed.
--- NOTE | 2025-03-02 08:05 | PC.SOCIAL ---
IMM Update Pg. 2 of IMM updated and reviewed with patient, who verbalized understanding. Copy provided.
[2025-03-02] MEDS: FUROsemide 10 mg/mL SDV 2mL 20 MG IVP ×2 (08:57→17:03)
--- NOTE | 2025-03-02 11:57 | P.PN_ITS ---
Subjective 2 Subjective: Hospital course, labs appreciated. On examination patient is in bed on 2 L of oxygen supplementation. Complaining of mild difficulty breathing. Heart rate remains around 90 to 95 bpm at rest. As per nursing staff increasing up to 110s minimal exertion. Patient denies any chest pain. Vitals/I&O/Wt Last Vital Signs Temp 96.9 F L 03/02/25 11:49 Pulse 69 03/02/25 11:49 Resp 20 H 03/02/25 11:49 BP 122/85 03/02/25 11:49 Pulse Ox 90 03/02/25 11:49 O2 Del Method Room Air 03/02/25 11:49 O2 Flow Rate 3 03/02/25 07:46 03/01/25 03/02/25 03/02/25 22:59 06:59 14:59 Intake Total 503.792 / 602.875 298.416 / 298.416 Output Total 200 / 200 200 / 400 Balance 303.792 / 402.875 -200 / 202.875 298.416 / 298.416 Weight last 48 hrs Weight 72.484 kg Weight 72.484 kg Weight 71.809 kg Weight 70.307 kg Physical Exam 2 Narrative: General Well-developed well-nourished overweight female in no acute cardiopulmonary distress CV regular rate and rhythm no loud murmur Lungs diminished breath sounds in the bases poor air movement no crackles or wheezes Abdomen positive bowel tones soft nontender Calves 1+ pretibial edema. No asymmetry Neck no bruits Skin is warm and dry Data 03/02/25 04:16 03/02/25 04:16 A&P Assessment and plan 1. Atrial flutter with rapid ventricular response: Off Cardizem drip. Heart rate continues to remain more than 100 on minimal exertion. Change Cardizem to 60 mg every 6 hourly. Change atenolol to 50 mg twice daily and metoprolol tartrate. Concern for mild diastolic heart failure. IV Lasix 20 mg one-time. Replace potassium accordingly. Keep potassium around 4, magnesium around 2. Echocardiogram done shows EF of 70% with mild LVH, PASP of 26 mmHg. Eliquis 5 mg twice daily for stroke prevention. If continues to remain elevated we will plan to switch from Cardizem to possible amiodarone. 2. COPD (chronic obstructive pulmonary disease): Mild COPD exacerbation. Start on Pulmicort twice daily, ipratropium, Xopenex every 6 hours. 3. Diabetes: A1c 6.8. Start on low sliding scale. Patient would benefit with SGL T2 inhibitor. 4. Presbycusis of both ears: Patient forgot her hearing aids today and requires us to speak loudly 5. Hypertension: Goal blood pressure less than 140/90 mmHg. Takes losartan, combination of triamterene and hydrochlorothiazide and atenolol at home. Switching atenolol to metoprolol as above. Continue with home dose of losartan. Uptitrate as for goal blood pressures. Plan: Out of bed to chair. Carb consistent cardiac diet. Fluid restriction to less than 1500 cc. DNR/DNI Eliquis will be sufficient for DVT prophylaxis Protonix COPD prophylaxis. PDMP PDMP Reviewed: Not Reviewed Attestations 2 Medical Necessity Statement*: Requires further hospitalization for management of atrial fibrillation with rapid ventricular response, diastolic heart failure Diagnoses Atrial flutter with rapid ventricular response I48.92 COPD (chronic obstructive pulmonary disease) J44.9 Diabetes E11.9 Presbycusis of both ears H91.13 Hypertension I10
[2025-03-02] MEDS: amiodarone 150 MG/100 ML PREMIX 400 MG IV (13:13)
--- NOTE | 2025-03-02 13:35 | PC.NURSE ---
Informed Dr Astorga of patient's elevated heart rate 120s to 140s sustained. Received telephone order to give amiodarone bolus and to begin amiodarone drip. Instructed patient on new medications to include use and side effects. Patient verbalized complete understanding.
[2025-03-02 18:10] LABS: Anion Gap 20.4 (5-19); Blood Urea Nitrogen 28 mg/dL (8-23); Calcium 8.8 mg/dL (8.5-10.5); Carbon Dioxide 26 mmol/L (22-29); Chloride 97 mmol/L (98-107); Creatinine Clr Calc Pharmacy 43.4988; Glucose 133 mg/dL (65-115); Osmolality Calculated 295 mOsm/kg (285-295); Potassium 4.4 mmol/L (3.5-5.1); Sodium 139 mmol/L (136-145)
[2025-03-02] MEDS: metoprolol tartrate 1 mg/1 mL SDV 5 mL 5 MG IVP (18:14)
--- NOTE | 2025-03-02 18:19 | PC.NURSE ---
informed dr barksdale of patient's heart rate sustained at 136. Received onetime order for Metoprolol 5mg IVP which has been given as documented. Instructed patient on medication. Patient verbalized complete understanding.
[2025-03-03] VITALS (9 sets, daily range): BP systolic 109–135; BP diastolic 50–83; PULSE 59–98; RESP 18–25; TEMP 36.2–37.2; O2SAT 90–100
--- NOTE | 2025-03-03 02:50 | PC.NURSE ---
converted to NSR appx [id number], amiodarone gtt paused appx 0250 for bradycardia
[2025-03-03 04:00] LABS: Hematocrit 38.7 % (36-47); Hemoglobin 12.30 g/dL (11.27-16.99); Mean Corpuscular HGB Conc 31.8 g/dL (30-55); Mean Corpuscular Hemoglobin 28.8 pg (27-33); Mean Corpuscular Volume 90.6 fl (85-98); Nucleated Red Blood Cells % 0 %; Platelet Count 232 10^3/cmm (157-399); Red Blood Count 4.27 10^6/uL (3.85-5.65); White Blood Count 7.28 10^3/uL (3.29-11.43)
[2025-03-03 04:23] LABS: Alanine Aminotransferase 9 U/L (0-33); Albumin Level 3.4 g/dL (3.5-5.2); Alkaline Phosphatase 73 U/L (35-105); Anion Gap 17.6 (5-19); Aspartate Amino Transferase 16 U/L (0-32); Blood Urea Nitrogen 35 mg/dL (8-23); Calcium 8.6 mg/dL (8.5-10.5); Carbon Dioxide 27 mmol/L (22-29); Chloride 99 mmol/L (98-107); Creatinine Clr Calc Pharmacy 35.0602; Globulin 3.1 g/dL (1.3-4.6); Glucose 114 mg/dL (65-115); Osmolality Calculated 299 mOsm/kg (285-295); Potassium 3.6 mmol/L (3.5-5.1); Sodium 140 mmol/L (136-145); Total Protein 6.5 g/dL (6.6-8.7)
[2025-03-03 04:29] LABS: Magnesium 1.5 mg/dL (1.7-2.3)
[2025-03-03] MEDS: ATORVASTATIN 10 MG TABLET 20 MG PO (08:53)
[2025-03-03] MEDS: calcium carb-vit d 600mg/400unit 1 Tablet 1 EACH PO (08:53)
--- NOTE | 2025-03-03 12:03 | P.DS_ITS ---
Discharge Providers Date of Admission: 03/01/25 10:03 Date of Discharge: March 03, 2025 Attending Provider at Admission: Luis Antonio Clemons MD Attending Provider at Discharge: Nima Astorga MD Primary Care Provider: Kelly Donohue Diagnoses at Discharge Discharge Diagnosis 1. Atrial flutter with rapid ventricular response: 2. COPD (chronic obstructive pulmonary disease): 3. Diabetes: 4. Presbycusis of both ears: 5. Hypertension: Reason for Visit Reason for Visit: afib Brief History: Omayra Ryan is a 79 year old female lives in [place] and states she was awakened from sleep with palpitations. She sat up at the edge of bed and was not really dizzy but continued to have palpitations so went to the living room and use her oximeter which read 123 several times. She called 911 and came to the hospital where she was told she was in a flutter. She states that few years ago she had irregular beat and was started on atenolol and then had more irregular beat years later and was increased to 2 tablets of the 50 mg tablets daily. Also years ago she was told that she had an old OR by EKG but she never noticed chest pain. Patient reports her past medical history of CHF, COPD with no history of smoking, diabetes with blood sugars running 109-120. She does not drink alcohol or smoke and never has even once. 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 Patient is a We discussed CODE STATUS and she wants DNR status Hospital Course Hospital Course Patient was admitted to the hospital further evaluation and management of A-fib with RVR. She was started on Cardizem drip. During hospitalization her heart rate was difficult to control and multiple medication changes were needed. Eventually her atenolol was changed to metoprolol and she was switched from Cardizem drip to amiodarone drip. Being on amiodarone drip she converted back to normal sinus rhythm and heart rate controlled. Echocardiogram was done which showed a normal EF with mild LVH and PASP of 26 mmHg. She has been discharged in hemodynamically stable condition. She will take amiodarone 200 mg twice daily for next 1 week followed by 200 mg daily along with metoprolol 50 mg twice daily. She is to follow-up with the primary care provider within next 1 week and with cardiology team within next 2 weeks. Her home use of albuterol has been changed to Xopenex. Physical Exam Narrative: General Well-developed well-nourished overweight female in no acute cardiopulmonary distress CV regular rate and rhythm no loud murmur Lungs diminished breath sounds in the bases poor air movement no crackles or wheezes Abdomen positive bowel tones soft nontender Calves 1+ pretibial edema. No asymmetry Neck no bruits Skin is warm and dry Discharge Data Studies Completed and Pending Completed Studies During Hospitalization Category Date Time Status XR chest 1V portable [id number] Stat Exams 03/01/25 06:18 Completed CV. echo complete* [id number] Routine Ultrasound 03/01/25 15:53 Completed Pending at discharge Category Date Time Status MAG [Magnesium] AM LABS Lab 03/04/25 04:00 Ordered Radiology Impressions Chest X-Ray 03/01/25 06:18 IMPRESSION: No acute findings. Echocardiogram CONCLUSIONS Normal left ventricular size and systolic function, EF 70%.mild left ventricular hypertrophy. No regional wall motion abnormalities. Mildly increased left atrial size. Mild mitral annular calcification. Thickened aortic valve. Trace aortic valve regurgitation. Mild tricuspid valve regurgitation. Trace pulmonary valve regurgitation. Estimated pulmonary artery peak systolic pressure 26 mmHg. Compared to the study from 06/06/2023, there may not be a significant change Dr Chris Anderson MD [facility] (Electronically Signed) Final Date: 01 March 2025 19:28 Laboratory Results WBC 7.28 10^3/uL (3.29-11.43) 03/03/25 03:23 RBC 4.27 10^6/uL (3.85-5.65) 03/03/25 03:23 Hgb 12.30 g/dL (11.27-16.99) 03/03/25 03:23 Hct 38.7 % (36-47) 03/03/25 03:23 MCV 90.6 fl (85-98) 03/03/25 03:23 MCH 28.8 pg (27-33) 03/03/25 03:23 MCHC 31.8 g/dL (30-55) 03/03/25 03:23 RDW 12.0 % (12.1-15.1) L 03/03/25 03:23 Plt Count 232 10^3/cmm (157-399) 03/03/25 03:23 MPV 10.3 fL (7.4-10.4) 03/03/25 03:23 Neut % (Auto) 66.9 % 03/03/25 03:23 Lymph % (Auto) 17.2 % 03/03/25 03:23 Hart % (Auto) 10.9 % 03/03/25 03:23 Eos % (Auto) 4.0 % 03/03/25 03:23 Baso % (Auto) 0.3 % 03/03/25 03:23 Neut # (Auto) 4.88 10^3/uL (1.8-7.7) 03/03/25 03:23 Lymph # (Auto) 1.3 10^3/uL (0.8-4.8) 03/03/25 03:23 Hart # (Auto) 0.8 10^3/uL (0.2-0.9) 03/03/25 03:23 Eos # (Auto) 0.3 10^3/uL (0.0-0.8) 03/03/25 03:23 Baso # (Auto) 0.0 10^3/uL (0.0-0.1) 03/03/25 03:23 Nucleated RBC % (auto) 0 % 03/03/25 03:23 Nucleated RBCs # 0.0 /100WBC 03/03/25 03:23 Sodium 140 mmol/L (136-145) 03/03/25 03:23 Potassium 3.6 mmol/L (3.5-5.1) 03/03/25 03:23 Chloride 99 mmol/L (98-107) 03/03/25 03:23 Carbon Dioxide 27 mmol/L (22-29) 03/03/25 03:23 Anion Gap 17.6 (5-19) 03/03/25 03:23 BUN 35 mg/dL (8-23) H 03/03/25 03:23 Creatinine 1.5 mg/dL (0.5-0.9) H 03/03/25 03:23 GFR Calculation Not Reportable 03/03/25 03:23 Glucose 114 mg/dL (65-115) 03/03/25 03:23 POC Glucose 188 mg/dL (70-110) H 03/03/25 11:39 Estimat Average Glucose 148 03/01/25 06:20 Hemoglobin A1c 6.8 % (4.0-6.0) H 03/01/25 06:20 Calculated Osmolality 299 mOsm/kg (285-295) H 03/03/25 03:23 Calcium 8.6 mg/dL (8.5-10.5) 03/03/25 03:23 Magnesium 1.5 mg/dL (1.7-2.3) L 03/03/25 03:23 Total Bilirubin 0.2 mg/dL (0.15-1.2) 03/03/25 03:23 AST 16 U/L (0-32) 03/03/25 03:23 ALT 9 U/L (0-33) 03/03/25 03:23 Alkaline Phosphatase 73 U/L (35-105) 03/03/25 03:23 Troponin T Baseline 14 ng/L (0-10) H 03/01/25 06:20 Troponin T 120 Minute 17.58 ng/L (0-10) H 03/01/25 08:21 Delta Troponin T 3.58 ABS# (0-10) 03/01/25 08:21 Troponin T Hi Sens 6Hr 23.26 ng/L (0-10) H 03/01/25 12:12 Troponin T Hi Sens 6Hr Delta 9.26 ng/L (0-12) 03/01/25 12:12 NT-Pro-B Natriuret Pep 785 pg/mL (0-450) H 03/01/25 06:20 Total Protein 6.5 g/dL (6.6-8.7) L 03/03/25 03:23 Albumin 3.4 g/dL (3.5-5.2) L 03/03/25 03:23 Globulin 3.1 g/dL (1.3-4.6) 03/03/25 03:23 Triglycerides 178 mg/dL (0-150) H 03/02/25 04:16 Cholesterol 162 mg/dL (0-200) 03/02/25 04:16 LDL Cholesterol, Calc 87 mg/dL (50-129) 03/02/25 04:16 Total VLDL Cholesterol 36 mg/dL (0-30) H 03/02/25 04:16 HDL Cholesterol 39 mg/dL (60-100) L 03/02/25 04:16 Cholesterol/HDL Ratio 4.15 mg/dL (0.0-4.40) 03/02/25 04:16 Vitamin B12 383 pg/mL (232-1245) 03/01/25 12:12 Folate > 20.0 ng/mL (4.8-37.3) 03/02/25 04:16 TSH 2.57 uIU/mL (0.27-4.20) 03/01/25 12:12 Urine Color Yellow (Yellow) 03/01/25 06:20 Urine Appearance Clear (CLEAR) 03/01/25 06:20 Urine pH 8.0 (5-7) A 03/01/25 06:20 Ur Specific Nixon 1.008 (1.005-1.030) 03/01/25 06:20 Urine Protein 1+ (Negative) A 03/01/25 06:20 Urine Glucose (UA) Negative (Normal) 03/01/25 06:20 Urine Ketones Negative (Negative) 03/01/25 06:20 Urine Blood Negative (Negative) 03/01/25 06:20 Urine Nitrate Negative (Negative) 03/01/25 06:20 Urine Bilirubin Negative (Negative) 03/01/25 06:20 Urine Urobilinogen 0.2 mg/dL (Negative) 03/01/25 06:20 Ur Leukocyte Esterase Negative (Negative) 03/01/25 06:20 Urine RBC 0-2 /hpf (0-2) 03/01/25 06:20 Urine WBC 0-5 /hpf (0-5) 03/01/25 06:20 Ur Squamous Epith Cells 0-5 /hpf (0-5) 03/01/25 06:20 Amorphous Sediment Not Reportable 03/01/25 06:20 Urine Bacteria 3+ /hpf (NONE) H 03/01/25 06:20 Hyaline Casts 0-4 /lpf H 03/01/25 06:20 Vitals Last Vital Signs Temp 98.9 F 03/03/25 11:47 Pulse 65 03/03/25 11:47 Resp 20 H 03/03/25 11:47 BP 135/83 03/03/25 11:47 Pulse Ox 95 03/03/25 11:47 O2 Del Method Room Air 03/03/25 11:47 O2 Flow Rate 2 03/03/25 07:28 Discharge Plan Discharge Patient Disposition: Home Condition: Stable Prescriptions: New metoprolol tartrate 50 mg Tablet 50 mg PO BID@0900,2099 30 Days Qty: 60 0RF levalbuterol tartrate [Xopenex HFA] 45 mcg/actuation HFA aerosol inhaler 1 inh inhalation Q4H PRN (Reason: shortness of breath or wheezing) Qty: 15 0RF Eliquis 5 mg Tablet 5 mg PO BID@0900,2099 30 Days Qty: 60 0RF amiodarone [Pacerone] 200 mg Tablet 200 mg PO BID Qty: 60 0RF Rx Instructions: 200 mg twice daily for 1 week, 200 mg daily dapagliflozin propanediol [Farxiga] 10 mg tablet 10 mg PO DAILY Qty: 30 3RF ipratropium bromide 0.02 % solution 2.5 ml inhalation TID Qty: 75 0RF Continued omeprazole 20 mg capsule,delayed release(DR/EC) 20 mg PO DAILY alprazolam 0.25 mg tablet 0.125 mg PO TID simvastatin 40 mg tablet 40 mg PO DAILY (DME) CAM BOOT See Rx Instructions .Route .MEDSUPPLY Qty: 1 0RF Rx Instructions: As directed (DME) ASO georgette See Rx Instructions .Route .MEDSUPPLY Qty: 1 0RF Rx Instructions: As directed calcium carbonate-vitamin D3 [Calcium + D] 600 mg-5 mcg (200 unit) Tablet 1 tab PO DAILY losartan 100 mg tablet 100 mg PO DAILY Discontinued triamterene-hydrochlorothiazid 37.5-25 mg capsule 1 cap PO QAM cyclobenzaprine 10 mg tablet 10 mg PO BEDTIME meloxicam 7.5 mg tablet 15 mg PO DAILY metformin 500 mg tablet extended release 24 hr 500 mg PO QAM Rx Instructions: with breakfast atenolol 50 mg tablet 100 mg PO DAILY Other Ambulatory Orders: DME: [facility] (Order) Location: None Selected Ordered By: Nima Astorga Referrals: Dodie Roland MD [Physician, Cardiology] - 1 month Kelly Donohue [Primary Care Provider, Family Practice] - 03/05/25 8:00 am Referral Note: Please arrive 15 minutes early. Patient Instructions: Metoprolol (By mouth) (Lopressor, Toprol XL), Amiodarone (By mouth) (Cordarone, Pacerone), Apixaban (By mouth) (Eliquis), Dapagliflozin (By mouth) (Farxiga), Atrial Flutter (DC), Hypertension (DC), COPD Stoplight, Opioid Safety, Patient Portal & Chin Instructions Activity Restrictions/Additional Instructions: Take amiodarone 200 mg twice daily for next 1 week followed by 200 mg daily. Do not take atenolol anymore. Instead take metoprolol 50 mg twice daily. Please check your blood pressure daily at home and maintain a blood pressure diary. Goal blood pressure is between 100-140 systolics. Follow-up with your primary care provider within the next 2 weeks for further adjustment of antihypertensive as needed. Do not take medications like meloxicam/cyclobenzaprine going forward as they can harm your kidney functions. Do not take metformin and instead take Farxiga which is going to help both with your heart function and diabetes. Discharge Attestations Time Spent in Discharge Care*: greater than 30 min Specific Discharge Activities: educating patient, discussing with pcp/other providers, discussing with residential case manager/social workers/dc planners, documenting/other paperwork and evaluating patient/reviewing data Status at Discharge: Cognitive status at discharge: cognitively intact , Behavioral status at discharge: cooperative , Functional status at discharge: uses cane/walker , Overall status at discharge: patient is not back to baseline Quality Metrics Clinical Quality Measures [ No reported AMI, CVA or VTE this stay] Coding Level of Care Code 30747 Total time (in minutes) for Discharge: 65 Diagnoses Atrial flutter with rapid ventricular response I48.92 COPD (chronic obstructive pulmonary disease) J44.9 Diabetes E11.9 Presbycusis of both ears H91.13 Hypertension I10
--- NOTE | 2025-03-03 18:12 | ECG_ITS ---
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 Measurements Intervals [place] Rate: 70 P: 52 CA: 172 QRS: -1 QRSD: 85 T: 17 QT: 402 QTc: 436 Interpretive Statements SINUS RHYTHM Compared to ECG 03/01/2025 13:56:24 Atrial fibrillation no longer present Electronically Signed On 03-07-2025 14:55:44 CDT by Jase [id number]
== END 2025-03-03 15:00 | disposition home or self-care (01) | DRG 309 ==
LOC: ER 11:40 → CSU 13:18
PROVIDERS: Admitting Provider Internal Medicine; Emergency Provider Emergency Medicine; PCP Registered Nurse; Visit Provider Student in an Organized Health Care Education/Training Program
DX: I48.92 Unspecified atrial flutter (principal); J44.1 Chronic obstructive pulmonary disease with (acute) exacerbation; I50.32 Chronic diastolic (congestive) heart failure; E11.9 Type 2 diabetes mellitus without complications; I11.0 Hypertensive heart disease with heart failure; R09.02 Hypoxemia; H91.13 Presbycusis, bilateral; Z66 Do not resuscitate; Z99.81 Dependence on supplemental oxygen; Z79.899 Other long term (current) drug therapy; Z79.84 Long term (current) use of oral hypoglycemic drugs; Z88.1 Allergy status to other antibiotic agents; Z88.2 Allergy status to sulfonamides
CPT/HCPCS: 36415; 36416; 71045; 80048; 80053; 80061; 81001; 82607; 82746; 82962; 83036; 83735; 83880; 84443; 84484; 85025; 93005; 93306; 94640; 96365; 96366; 96372; 96375; 96376; 97116; 97161; 99285; A4222; A9270; J0283; J1815; J1938; J3490; J7626; J7644; J9999

== ENCOUNTER 2025-03-07 17:47 | Emergency (ER) | payer MEDICARE, OTHER, SELFPAY ==
--- OUTSIDE RECORDS SUMMARY | 2025-03-06 09:00 | XMS_ITS | Encounter Summary ---
Author Organization [facility] Address [address] [place] [address] Care Team Providers Care Overhead Foreman Name Role Phone Jordan Bautista MD Primary Care Provider [phone] Reason for Visit * Reason Comments Follow Up 2 week OZH--Was admi tted to hosp on Sunday and DC's on Sunday--- Has afib. Records in media Encounter Details Date Type Department Care Team (Late st Contact Info) Description 03/06/2025 9:00 AM CDT Office Visit [facility] [place] [address] [address] Ramona Caballero FNP [address] [address] Primary hypertension (Primary Dx); Ankle edema, bilateral; Atypical atrial flutter (CMS/HCC) Social History Tobacco Use Types Packs/Day Years Used Date Smoking Tobacco: Never Smokeless Tobacco: Never Tobacco Cessation:Counseling Given: No Alcohol Use Standard Drinks/Week Comments No 0 (1 standard drink = 0.6 oz pur e alcohol) Comments No Sex and Gender Information Value Date Recorded Sex Assigned at Not on file 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 Sex 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 Gender Identity Not on file Sexual Orientation Not on file documented as of this encounter Last Filed Vital Signs Vital Sign Reading Time Taken Comments Blood Pressure 142/84 03/06/2025 9:31 AM CDT Pulse 70 03/06/2025 9:08 AM CDT Temperature 36.6 C (97.9 F) 03/06/2025 9:08 AM CDT Respiratory Rate 18 03/06/2025 9:08 AM CDT Oxygen Saturation 96% 03/06/2025 9:08 AM CDT Inhaled Oxygen Concentration - - Weight 71.1 kg (156 lb 12.8 oz) 03/06/2025 9:08 AM CDT Height 149.9 cm (4' 11 ) 03/06/2025 9:08 AM CDT Body Mass Index 31.67 03/06/2025 9:08 AM CDT documented in this encounter Progress Notes * Ramona Caballero, GERALD - 03/06/2025 10:42 AM CDT [facility] [place] 03/06/2025 Subjective: Omayra Ryan is a 79 y.o. female who comes today for evaluation of Follow Up (2 week /OZH--Was admitted to [facility] on Sunday and DC's on Sunday--- Has afib. Records in media ) . History of Present Illness The patient is a 79-year-old female who presents to the clinic today for follow- up. She was seen on02/20/2025 due to hypertension, and her losartan was increased to 100 mg. However, on 03/01/2025, she presented to the emergency department at [facility] by EMS due to being awakened in the night with her heart racing. She reported no chest pain or heaviness at the time. She was given diltiazem by EMS (17 mg) and 24 mg in the ED. Her heart rate ranged from 90 to 150. She was admitted to the hospital on a Cardizem drip. EKG suggested atrial flutter with RVR, but no other information is available. It appears that she was started on metoprolol, Farxiga, Eliquis, and amiodarone. She reports feeling better than she did on Sunday morning when she was admitted to the hospital until Sunday afternoon. She recalls waking up in the middle of the night with a racing heart, which prompted her to check her heart rate using a finger monitor. The device indicated a heart rate of 138.She also experienced shortness of breath and difficulty speaking. An echocardiogram was performed, b ut she is unaware of the results. She has an appointment with cardiology scheduled for 03/18/2025. Her blood pressure readings have been inconsistent, with a reading of 139 on Sunday afternoon and a systolic reading of 160 today. She was advised to take her diuretic in the morning instead of atnight. She does not take diuretics unless she gains 5 pounds within a week. She has lost 8 ounces each day for the past two days. She took her medication earlier than usual this morning, around 8:10 or 8:15, instead of her usual time of 8:30. Review of Systems Constitutional: Negative for chills and fever. Respiratory: Negative for shortness of breath. Cardiovascular: Negative for chest pain. Musculoskeletal: Negative for myalgias. All other systems reviewed and are negative. Objective: Vitals: 03/06/25 0908 03/06/25 0913 03/06/25 0931 Temp: 97.9 ??F (36.6 ??C) Pulse: 70 BP: (!) 176/88 (!) 160/89 (!) 142/84 Resp: 18 SpO2: 96% Physical Exam Vitals and nursing note reviewed. Constitutional: Appearance: Normal appearance. HENT: Head: Normocephalic and atraumatic. Right Ear: External ear normal. Left Ear: External ear normal. Nose: Nose normal. Mouth/Throat: Mouth: Mucous membranes are moist. Eyes: Conjunctiva/sclera: Conjunctivae normal. Cardiovascular: Rate and Rhythm: Normal rate and regular rhythm. Pulses: Normal pulses. Heart sounds: Normal heart sounds. Pulmonary: Effort: Pulmonary effort is normal. Breath sounds: Normal breath sounds. Musculoskeletal: General: Normal range of motion. Cervical back: Normal range of motion and neck supple. Skin: General: Skin is warm and dry. Neurological: Mental Status: She is alert and oriented to person, place, and time. Psychiatric: Behavior: Behavior normal. Past medical history, surgical history and social history reviewed. Past Medical History: Diagnosis Date Dysrhythmia, cardiac june 2021? GERD (gastroesophageal reflux disease) Hyperlipidemia 09/25/2008 Hypertension 09/25/2008 Hypokalemia Osteoarthritis of knee Osteoporosis Vitamin D deficiency Procedures Assessment/Plan: ICD-10-CM ICD-9-CM 1. Primary hypertension I10 401.9 2. Ankle edema, bilateral M25.471 719.07 bumetanide (BUMEX) 0.5 mg tablet M25.472 3. Atypical atrial flutter (CMS/HCC) I48.4 427.32 Assessment & Plan 1. Hypertension. - Blood pressure readings have been fluctuating, with a recent reading of 142/80. - Advised to monitor blood pressure closely, taking readings in the morning and at night. - If systolic blood pressure consistently measures 160 or higher, or if diastolic blood pressure reaches 90, a modification in medication regimen will be considered. - Continue current medications and monitor for any significant changes. 2. Atrial flutter with rapid ventricular response (RVR). - Experienced an episode of atrial flutter with RVR, leading to hospitalization. - Treated with diltiazem and Cardizem drip; currently on metoprolol, Farxiga, Eliquis, and amiodarone. - EKG suggested atrial flutter; chest x-ray was normal. - Advised to follow up with cardiology on 03/18/2025. 3. Medication management. - Prescribed Bumex (bumetanide) as a diuretic. - Refill for Bumex will be provided. - Instructed to take Bumex in the morning. - Ensure all medications are taken as prescribed and monitor for any adverse effects. Follow-up: 03/13/2025. CHIN Coker The author of this note, patient (or authorized insurance claim representative), and all other persons present consent to the audio recording of this visit for charting documentation purposes. This note was automatically generated by a Generative AI technology ([employer]), reviewed, edited, and finalized by GERALD Coker. documented in this encounter Plan of Treatment Upcoming Encounters Date Type Department Care Team (Late st Contact Info) Description 03/13/2025 8:20 AM CDT Office Visit [facility] [address] [address] Ramona Caballero FNP [address] [address] 04/10/2025 3:00 PM CDT Office Visit [facility] [address] [place] [phone] Jordan Bautista MD [address] [place] [phone] 05/21/2025 9:00 AM CDT Appointment [facility] [place] [address] [place] [phone] 11/27/2025 8:00 AM CDT Office Visit [facility] [address] [place] [phone] Kelly Donohue, [facility] [address] [place] [phone] documented as of this encounter Visit Diagnoses Diagnosis Primary hypertension- Primary Unspecified essential hypertension Ankle edema, bilateral Atypical atrial flutter (CMS/HCC) Atrial flutter documented in this encounter Care Teams Overhead Foreman Relationship Specialty Start Date End Date Jordan Bautista MD [address] [facility] [place] [address] PCP - General Family Practice 08/24/21 documented as of this encounter
[2025-03-07 17:50] VITALS: BP 231/100; PULSE 81; RESP 16; TEMP 36.7; O2SAT 97; BMI 31.1
--- NOTE | 2025-03-07 17:50 | ECG_ITS ---
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
--- OUTSIDE RECORDS SUMMARY | 2025-03-07 18:02 | XMS_ITS | Encounter Summary ---
Author Organization [facility] Address [address] [place] [address] Care Team Providers Care Salesperson Automobiles Name Role Phone Nicole Blank MD Primary Care Provider [phone] Encounter Details Date Type Department Care Team (Latest Contact Info) Description 11/15/2001 Outpatient Historical [facility] Family Medicine [place] 104 [facility] [address] [place] [address] Shukri Teran DO NO ADDRESS ON FILE Pure hypercholesterolem (Primary Dx) Social History Tobacco Use Types Packs/Day Years Used Date Smoking Tobacco: Never Assessed Comments Unknown Sex and Gender Information Value Date Recorded Sex Assigned at Not on file Legal Sex Female 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
--- OUTSIDE RECORDS SUMMARY | 2025-03-07 18:02 | XMS_ITS | Encounter Summary ---
Author Organization [facility] Address [address] [place] [address] Care Team Providers Care Lead Radiologic Technologist Name Role Phone Nicole Blank MD Primary Care Provider [phone] Encounter Details Date Type Department Care Team (Latest Contact Info) Description 06/14/2001 Outpatient Historical [facility] Family Medicine [place] 104 [facility] 60 [place] [address] Shukri Teran DO NO ADDRESS ON FILE SYMPTOMS IN BREAST NEC (Primary Dx) Social History Tobacco Use Types Packs/Day Years Used Date Smoking Tobacco: Never Assessed Comments Unknown Sex and Gender Information Value Date Recorded Sex Assigned at Not on file Legal Sex Female 4:03 AM PUBLIC RELATIONS DIRECTOR Gender Identity Not on file Sexual [...] as of this encounter Care Teams Lead Radiologic Technologist Relationship Specialty Start Date End Date Nicole Blank MD [address] [phone] PCP - General Family Practice 10/02/13 documented as of this encounter
--- OUTSIDE RECORDS SUMMARY | 2025-03-07 18:02 | XMS_ITS | Encounter Summary ---
Author Organization [facility] Address [address] [place] [address] Care Team Providers Care Enrollment Manager Name Role Phone Nicole Blank MD Primary Care Provider Encounter Details Date Type Department Care Team (Latest Contact Info) Description 11/12/[address] 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
--- OUTSIDE RECORDS SUMMARY | 2025-03-07 18:02 | XMS_ITS | Encounter Summary ---
Author Organization [facility] Address [address] [place] [address] Care Team Providers Care Assistant Hairstylist Name Role Phone Nicole Blank MD Primary Care Provider [phone] Encounter Details Date Type Department Care Team (Latest Contact Info) Description 05/16/2002 Outpatient Historical [facility] Family Medicine [place] 104 [address] [facility] 60 [place] [address] Teodoro Burt MD [address] [address] HYPERLIPIDEMIA NEC/NOS (Primary Dx); VACCINE FOR INFLUENZA Social History Tobacco Use Types Packs/Day Years Used Date Smoking Tobacco: Never Assessed Comments Unknown Sex and Gender Information Value Date Recorded Sex Assigned at Not on file 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
--- OUTSIDE RECORDS SUMMARY | 2025-03-07 18:02 | XMS_ITS | Encounter Summary ---
Author Organization [facility] Address [address] [place] [address] Care Team Providers Care Credit Rating Inspector Name Role Phone Nicole Blank MD Primary Care Provider Encounter Details Date Type Department Care Team (Latest Contact Info) Description 01/10/2002 Outpatient Historical [facility] Family Medicine [place] 104 [facility] 60 [place] [address] Teodoro Burt MD [address] [address] ABDOMINAL PAIN UNSPEC SITE (Primary Dx); DIARRHEA NOS Social History Tobacco Use Types Packs/Day Years Used Date Smoking Tobacco: Never Assessed Comments Unknown Sex and Gender Information Value Date Recorded Sex Assigned at Not on file 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
--- OUTSIDE RECORDS SUMMARY | 2025-03-07 18:02 | XMS_ITS | Encounter Summary ---
Author Organization [facility] Address [address] [place] [address] Care Team Providers Care Inner Tube Inserter Name Role Phone Nicole Blank MD Primary Care Provider Encounter Details Date Type Department Care Team (Latest Contact Info) Description 10/04/2000 Outpatient Historical 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
--- OUTSIDE RECORDS SUMMARY | 2025-03-07 18:02 | XMS_ITS | Encounter Summary ---
Author Organization [facility] Address [address] [place] [address] Care Team Providers Care Merchandise Presentation Associate Name Role Phone Nicole Blank MD Primary Care Provider Encounter Details Date Type Department Care Team (Latest Contact Info) Description 04/05/2001 Outpatient Historical [facility] Medicine [place] 104 [facility] 60 [place] [address] Shukri Teran DO NO ADDRESS ON FILE Other and unspecified hyperlipidemia (Primary Dx) Social History Tobacco Use Types Packs/Day Years Used Date Smoking Tobacco: Never Assessed Comments Unknown Sex and Gender Information Value Date Recorded Sex Assigned at Not on file 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
--- OUTSIDE RECORDS SUMMARY | 2025-03-07 18:02 | XMS_ITS | Encounter Summary ---
Author Organization [facility] Address [address] [place] [address] Care Team Providers Care Assistant Tennis Professional Name Role Phone Nicole Blank MD Primary Care Provider [phone] Encounter Details Date Type Department Care Team (Latest Contact Info) Description 05/03/[address] [facility] [place] [facility] [place] [address] 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
--- OUTSIDE RECORDS SUMMARY | 2025-03-07 18:03 | XMS_ITS | Encounter Summary ---
Author Organization [facility] Address [address] [place] [address] Care Team Providers Care Direct Selling Counselor Name Role Phone Nicole Blank MD Primary Care Provider Encounter Details Date Type Department Care Team (Latest Contact Info) Description 11/12/2003 Outpatient Historical [facility] Family Medicine [place] 104 [address] [facility] 60 [place] [phone] Zoe Hernandez MD NO ADDRESS ON FILE ACUTE URI NOS (Primary Dx); ACUTE BRONCHITIS Social History Tobacco Use Types Packs/Day Years Used Date Smoking Tobacco: Never Assessed Comments Unknown Sex and Gender Information Value Date Recorded Sex Assigned at Not on file 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
--- OUTSIDE RECORDS SUMMARY | 2025-03-07 18:03 | XMS_ITS | Encounter Summary ---
Author Organization [facility] Address [address] [place] [address] Care Team Providers Care Canvas Baster Jumpbasting Name Role Phone Nicole Blank MD Primary Care Provider [phone] Encounter Details Date Type Department Care Team (Latest Contact Info) Description 06/01/2003 Outpatient Historical [facility] Medicine [place] [address] [facility] 60 [place] [address] Shukri Teran DO NO ADDRESS ON FILE Gynecologic examination (Primary Dx); DERMATITIS NOS; HYPERTENSION NOS; SCREENING MAL NEOP-RECTUM Social History Tobacco Use Types Packs/Day Years Used Date Smoking Tobacco: Never Assessed Comments Unknown Sex and Gender Information Value Date Recorded Sex Assigned at Not on file Legal Sex Female 4:03 AM CAREER SERVICES MANAGER Gender Identity Not on file Sexual [...] documented as of this encounter Care Teams Canvas Baster Jumpbasting Relationship Specialty Start Date End Date Nicole Blank MD [address] [phone] PCP - General Family Practice 10/02/13 documented as of this encounter
--- OUTSIDE RECORDS SUMMARY | 2025-03-07 18:03 | XMS_ITS | Encounter Summary ---
Author Organization [facility] Address [address] [place] [address] Care Team Providers Care Cleaner Touch Up Worker Name Role Phone Nicole Blank MD Primary Care Provider Reason for Referral * Outpatient Services (Routine) - Closed Specialty Diagnoses / Procedures Referred By Carlee cordova Referred To Contact Diagnoses Screening mammogram Procedures MAMMO SCREENING BILAT Shukri Teran DO NO ADDRESS ON FILE Referral ID Status Reason Start Date Expiration Date Visits Re quested Visits Authorized [id number] Closed 02/09/2011 02/09/2012 1 1 Encounter Details Date Type Department Care Team (Late st Contact Info) Description 02/09/2011 Ancillary Orders [facility] Imaging External Read [address] [place] [phone] Shukri Teran DO NO ADDRESS ON FILE Screening mammogram Social History Tobacco Use Types Packs/Day Years Used Date Smoking Tobacco: Never Smokeless Tobacco: Never Alcohol Use Standard Drinks/Week Comments No 0 (1 standard drink = 0.6 oz pur e alcohol) Comments No Sex and Gender Information Value Date Recorded Sex Assigned at Not on file 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
--- OUTSIDE RECORDS SUMMARY | 2025-03-07 18:03 | XMS_ITS | Encounter Summary ---
Author Organization [facility] Address [address] [place] [address] Care Team Providers Care Concrete Float Maker Name Role Phone Nicole Blank MD Primary Care Provider Encounter Details Date Type Department Care Team (Latest Contact Info) Description 09/12/1999 Outpatient Historical [facility] Family Medicine [place] 104 [facility] 60 [place] [address] Shukri Teran DO NO ADDRESS ON FILE Acute upper respiratory infections of unspecified site (Primary Dx) Social History Tobacco Use Types Packs/Day Years Used Date Smoking Tobacco: Never Assessed Comments Unknown Sex and Gender Information Value Date Recorded Sex Assigned at Not on file 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
--- OUTSIDE RECORDS SUMMARY | 2025-03-07 18:03 | XMS_ITS | Encounter Summary ---
Author Organization [facility] Address [address] [place] [address] Care Team Providers Care Machine Setter And Repairer Name Role Phone Nicole Blank MD Primary Care Provider Encounter Details Date Type Department Care Team (Latest Contact Info) Description 09/08/2005 Outpatient Historical [facility] Medicine [place] 104 [facility] 60 [place] [address] Shukri Teran DO NO ADDRESS ON FILE HYPERLIPIDEMIA NEC/NOS (Primary Dx); HYPOPOTASSEMIA Social History Tobacco Use Types Packs/Day Years Used Date Smoking Tobacco: Never Assessed Comments Unknown Sex and Gender Information Value Date Recorded Sex Assigned at Not on file 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
--- OUTSIDE RECORDS SUMMARY | 2025-03-07 18:03 | XMS_ITS | Encounter Summary ---
Author Organization [facility] Address [address] [place] [address] Care Team Providers Care Freight Car Cleaner Delta System Name Role Phone Nicole Blank MD Primary Care Provider Encounter Details Date Type Department Care Team (Latest Contact Info) Description 08/30/2004 Outpatient Historical [facility] Medicine [address] [place] [address] Shukri Teran DO NO ADDRESS ON FILE ACUTE BRONCHITIS (Primary Dx) Social History Tobacco Use Types Packs/Day Years Used Date Smoking Tobacco: Never Assessed Comments Unknown Sex and Gender Information Value Date Recorded Sex Assigned at Not on file 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
--- OUTSIDE RECORDS SUMMARY | 2025-03-07 18:03 | XMS_ITS | Encounter Summary ---
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
--- OUTSIDE RECORDS SUMMARY | 2025-03-07 18:03 | XMS_ITS | Encounter Summary ---
Author Organization [facility] Address [address] [place] [address] Care Team Providers Care Ediscovery Project Manager Name Role Phone Nicole Blank MD Primary Care Provider [phone] Encounter Details Date Type Department Care Team (Late st Contact Info) Description 06/24/2004 Outpatient [facility] Medicine [address] [address] Shukri Teran DO NO ADDRESS ON FILE Social History Tobacco Use Types Packs/Day Years Used Date Smoking Tobacco: Never Assessed Comments Unknown Sex and Gender Information Value Date Recorded Sex Assigned at Not on file 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
--- OUTSIDE RECORDS SUMMARY | 2025-03-07 18:03 | XMS_ITS | Encounter Summary ---
Author Organization [facility] Address [address] [place] [address] Care Team Providers Care Paedodontist Name Role Phone Nicole Blank MD Primary Care Provider [phone] Encounter Details Date Type Department Care Team (Latest Contact Info) Description 10/05/2000 Outpatient Historical [facility] General and Trauma Surgery-[place] [address] [facility] [address] [place] [address] Kofi Mcclain MD NO ADDRESS ON FILE Abdominal pain, other specified site (Primary Dx); Nausea with vomiting Social History Tobacco Use Types Packs/Day Years Used Date Smoking Tobacco: Never Assessed Comments Unknown Sex and Gender Information Value Date Recorded Sex Assigned at Not on file Legal Sex Female 4:03 AM PERFORMANCE IMPROVEMENT CONSULTANT Gender Identity Not on file Sexual [...] documented as of this encounter Care Teams Paedodontist Relationship Specialty Start Date End Date Nicole Blank MD [address] [address] PCP - General Family Practice 10/02/13 documented as of this encounter
--- OUTSIDE RECORDS SUMMARY | 2025-03-07 18:03 | XMS_ITS | Encounter Summary ---
Author Organization [facility] Address [address] [place]: [place] [address] Care Team Providers Care Kettle Girl Name Role Phone Nicole Blank MD Primary [...] on file Legal Sex Female 4:03 AM NEW ACCOUNTS REPRESENTATIVE Gender Identity Not on file Sexual [...] documented as of this encounter Care Teams Kettle Girl Relationship Specialty Start Date End Date Nicole Blank MD [address] [place] [phone] PCP - General Family Practice 10/02/13 documented as of this encounter
--- OUTSIDE RECORDS SUMMARY | 2025-03-07 18:03 | XMS_ITS | Encounter Summary ---
Author Organization [facility] Address [address] [place] [address] Care Team Providers Care Railway Track Plant Operator Name Role Phone Nicole Blank MD Primary Care Provider [phone] Encounter Details Date Type Department Care Team (Late st Contact Info) Description 07/26/2005 Outpatient Historical [facility] Medicine [address] [address] Shukri Teran DO NO ADDRESS ON FILE Social History Tobacco Use Types Packs/Day Years Used Date Smoking Tobacco: Never Assessed Comments Unknown Sex and Gender Information Value Date Recorded Sex Assigned at Not on file 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
--- OUTSIDE RECORDS SUMMARY | 2025-03-07 18:03 | XMS_ITS | Encounter Summary ---
Author Organization [facility] Address [address] [place] [address] Care Team Providers Care Trailer Driver Name Role Phone Nicole Blank MD Primary Care Provider Encounter Details Date Type Department Care Team (Latest Contact Info) Description 12/18/2006 Outpatient Historical [facility] Medicine [place] [address] [facility] 60 [place] [address] Shukri Teran DO NO ADDRESS ON FILE Other and Unspecified Hyperlipidemia (Primary Dx) Social History Tobacco Use Types Packs/Day Years Used Date Smoking Tobacco: Never Assessed Comments Unknown Sex and Gender Information Value Date Recorded Sex Assigned at Not on file Legal Sex Female 4:03 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
--- OUTSIDE RECORDS SUMMARY | 2025-03-07 18:03 | XMS_ITS | Encounter Summary ---
Author Organization [facility] Address [address] [place] [address] Care Team Providers Care Day Habilitation Specialist Name Role Phone Nicole Blank MD Primary Care Provider Encounter Details Date Type Department Care Team (Late st Contact Info) Description 09/13/[address] [facility] [place] Medicine [address] [address] Social History Tobacco Use Types Packs/Day Years Used Date Smoking Tobacco: Never Assessed Comments Unknown Sex and Gender Information Value Date Recorded Sex Assigned at Not on file Legal Sex Female 4:03 AM BIODIESEL PRODUCT DEVELOPMENT MANAGER Gender Identity Not on file Sexual [...] documented as of this encounter Care Teams Day Habilitation Specialist Relationship Specialty Start Date End Date Nicole Blank MD [address] [phone] PCP - General Family Practice 10/02/13 documented as of this encounter
--- OUTSIDE RECORDS SUMMARY | 2025-03-07 18:03 | XMS_ITS | Encounter Summary ---
Author Organization [facility] Address [address] [place] [address] Care Team Providers Care Gum Dipper Name Role Phone Nicole Blank MD Primary Care Provider Encounter Details Date Type Department Care Team (Latest Contact Info) Description 10/01/2000 Outpatient Historical [facility] General Surgery [place] [address] [address] [place] [address] [place] [address] [facility] [address] [place] [address] Other and unspecified noninfectious gastroenteritis and colitis(558.9) (Primary Dx) Social History Tobacco Use Types Packs/Day Years Used Date Smoking Tobacco: Never Assessed Comments Unknown Sex and Gender Information Value Date Recorded Sex Assigned at Not on file 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
--- OUTSIDE RECORDS SUMMARY | 2025-03-07 18:03 | XMS_ITS | Encounter Summary ---
Author Organization [facility] Address [address] [place] [address] Care Team Providers Care Windows Application Administrator Name Role Phone Jordan Bautista MD Primary Care Provider [phone] Encounter Details Date Type Department Care Team (Late st Contact Info) Description 03/02/2025 Orders Only [place] [id number] [place] [address] Provider, Abstract NO ADDRESS ON FILE Social History Tobacco Use Types Packs/Day Years Used Date Smoking Tobacco: Never Smokeless Tobacco: Never Alcohol Use Standard Drinks/Week Comments No 0 (1 standard drink = 0.6 oz pur e alcohol) Comments No Sex and Gender Information Value Date Recorded Sex Assigned at Not on file Legal Sex Female 4:28 AM AND TAXI INSTRUCTOR BUS TROLLEY Gender Identity Not on file Sexual Orientation Not on file documented as of this encounter Plan of Treatment Upcoming Encounters Date Type Department Care Team (Late Contact Info) Description 03/13/2025 8:20 AM CDT Office Visit [address] [address] Ramona Caballero FNP [address] [address] 04/10/2025 3:00 PM CDT Office Visit [address] [address] Jordan Bautista MD [address] [facility] 60 [place] [address] 05/21/2025 9:00 AM CDT Appointment [facility] [place] [address] [facility] 60 [place] [address] 11/27/2025 8:00 AM CDT Office Visit [facility] Family Medicine [place] [address] [facility] 60 [place] [address] Kelly Donohue, [facility] [address] [facility] 60 [place] [phone] documented as of this encounter Procedures Procedure Name Priority Date/Time Associated Diagnosis Comments COMPREHENSIVE METABOLIC PANEL Routine 03/01/2025 10:43 AM CDT documented in this encounter Results * COMPREHENSIVE METABOLIC PANEL (03/01/2025 10:43 AM CDT) Blood us Abstract Provider CHEMISTRY ORDERABLES Final Res ult documented in this encounter Visit Diagnoses Not on filedocumented in this encounter Care Teams Windows Application Administrator Relationship Specialty Start Date End Date Jordan Bautista MD [address] [facility] [place] [address] PCP - General Family Practice 08/24/21 documented as of this encounter
--- OUTSIDE RECORDS SUMMARY | 2025-03-07 18:03 | XMS_ITS | Encounter Summary ---
Author Organization [facility] Address [address] [place] [address] Care Team Providers Care Pool Lifeguard Name Role Phone Nicole Blank MD Primary Care Provider Encounter Details Date Type Department Care Team (Latest Contact Info) Description 01/13/2003 Outpatient Historical [facility] Family Medicine [place] [address] [facility] 60 [place] [address] Shukri Teran DO NO ADDRESS ON FILE Sprain lumbosacral (Primary Dx); CYSTITIS NOS Social History Tobacco Use Types Packs/Day Years Used Date Smoking Tobacco: Never Assessed Comments Unknown Sex and Gender Information Value Date Recorded Sex Assigned at Not on file Legal Sex Female 4:03 AM INDIVIDUAL PENSION CONSULTANT Gender Identity Not on file Sexual [...] documented as of this encounter Care Teams Pool Lifeguard Relationship Specialty Start Date End Date Nicole Blank MD [address] [address] PCP - General Family Practice 10/02/13 documented as of this encounter
--- OUTSIDE RECORDS SUMMARY | 2025-03-07 18:03 | XMS_ITS | Encounter Summary ---
Author Organization [facility] Address [address] [place] [address] Care Team Providers Care Service Learning Coordinator Name Role Phone Nicole Blank MD Primary Care Provider Encounter Details Date Type Department Care Team (Latest Contact Info) Description 09/16/1999 Outpatient Historical [facility] Medicine [place] [address] [facility] 60 [place] [address] Shukri Teran DO NO ADDRESS ON FILE Acute bronchitis (Primary Dx) Social History Tobacco Use Types Packs/Day Years Used Date Smoking Tobacco: Never Assessed Comments Unknown Sex and Gender Information Value Date Recorded Sex Assigned at Not on file Legal Sex Female 4:03 AM HOST Gender Identity Not on file Sexual Orientation [...] as of this encounter Care Teams Service Learning Coordinator Relationship Specialty Start Date End Date Nicole Blank MD [address] [phone] PCP - General Family Practice 10/02/13 documented as of this encounter
--- OUTSIDE RECORDS SUMMARY | 2025-03-07 18:03 | XMS_ITS | Encounter Summary ---
Author Organization [facility] Address [address] [place] [address] Care Team Providers Care Knit Goods Press Hand Name Role Phone Nicole Blank MD Primary Care Provider [phone] Encounter Details Date Type Department Care Team (Late st Contact Info) Description 07/29/2007 Outpatient Historical [facility] Medicine [address] [address] Shukri Teran DO NO ADDRESS ON FILE Social History Tobacco Use Types Packs/Day Years Used Date Smoking Tobacco: Never Assessed Comments Unknown Sex and Gender Information Value Date Recorded Sex Assigned at Not on file Legal Sex Female 4:03 AM SLEEP LAB TECHNOLOGIST Gender Identity Not on file Sexual Orientation [...] documented as of this encounter Care Teams Knit Goods Press Hand Relationship Specialty Start Date End Date Nicole Blank MD [address] [address] PCP - General Family Practice 10/02/13 documented as of this encounter
--- OUTSIDE RECORDS SUMMARY | 2025-03-07 18:03 | XMS_ITS | Encounter Summary ---
Author Organization [facility] Address [address] [place] [address] Care Team Providers Care Vice President Talent Management Name Role Phone Nicole Blank MD Primary Care Provider [phone] Encounter Details Date Type Department Care Team (Late st Contact Info) Description 03/18/2014 Ancillary Orders [facility]- [address] [address] Francisco Hensley PA NO ADDRESS [...] on file Legal Sex Female 4:03 AM MERCHANDISE PRESENTATION MANAGER Gender Identity Not on file Sexual [...] * MAMMO DIGITIZED STUDY (07/18/2004 9:43 AM MERCHANDISE PRESENTATION MANAGER) Narrative Sheila Soares, RT - 03/18/2014 [...] documented as of this encounter Care Teams Vice President Talent Management Relationship Specialty Start Date End Date Nicole Blank MD [address] [phone] PCP - General Family Practice 10/02/13 documented as of this encounter
--- OUTSIDE RECORDS SUMMARY | 2025-03-07 18:03 | XMS_ITS | Encounter Summary ---
Author Organization [facility] Address [address] [place] [address] Care Team Providers Care Oracle Solutions Architect Name Role Phone Nicole Blank MD Primary Care Provider [phone] Encounter Details Date Type Department Care Team (Latest Contact Info) Description 07/23/2002 Outpatient Historical [facility] [place] [address] [facility] 60 [place] [address] Shukri Tearn DO NO ADDRESS ON FILE HYPERTENSION NOS (Primary Dx); OSTEOARTHROS NOS-UNSPEC Social History Tobacco Use Types Packs/Day Years Used Date Smoking Tobacco: Never Assessed Comments Unknown Sex and Gender Information Value Date Recorded Sex Assigned at Not on file Legal Sex Female 4:03 AM MOLDED GOODS EMBOSSING PRESS OPERATOR Gender Identity Not on file Sexual [...] documented as of this encounter Care Teams Oracle Solutions Architect Relationship Specialty Start Date End Date Nicole Blank MD [address] [address] PCP - General Family Practice 10/02/13 documented as of this encounter
--- OUTSIDE RECORDS SUMMARY | 2025-03-07 18:03 | XMS_ITS | Encounter Summary ---
Author Organization [facility] Address [address] [place] [address] Care Team Providers Care Annealing Furnace Operator Name Role Phone Nicole Blank MD Primary Care Provider Encounter Details Date Type Department Care Team (Latest Contact Info) Description 09/21/1999 Outpatient Historical [facility] Medicine [place] [address] [facility] 60 [place] [address] Shukri Teran DO NO ADDRESS ON FILE Other and unspecified hyperlipidemia (Primary Dx) Social History Tobacco Use Types Packs/Day Years Used Date Smoking Tobacco: Never Assessed Comments Unknown Sex and Gender Information Value Date Recorded Sex Assigned at Not on file Legal Sex Female 4:03 AM RESOLUTION ANALYST Gender Identity Not on file Sexual [...] documented as of this encounter Care Teams Annealing Furnace Operator Relationship Specialty Start Date End Date Nicole Blank MD [address] [phone] PCP - General Family Practice 10/02/13 documented as of this encounter
--- OUTSIDE RECORDS SUMMARY | 2025-03-07 18:03 | XMS_ITS | Encounter Summary ---
Author Organization [facility] Address [address] [place] [address] Care Team Providers Care Fish Hatchery Laborer Name Role Phone Nicole Blank MD Primary Care Provider Encounter Details Date Type Department Care Team (Latest Contact Info) Description 10/15/2000 Outpatient Historical [facility] General and Trauma Surgery-[place] [address] [facility] [address] [place] [address] Abdominal or pelvic swelling, mass, or lump, left lower quadrant (Primary Dx) Social History Tobacco Use Types Packs/Day Years Used Date Smoking Tobacco: Never Assessed Comments Unknown Sex and Gender Information Value Date Recorded Sex Assigned at Not on file Legal Sex Female 4:03 AM THERAPEUTIC CASE MANAGER Gender Identity Not on file Sexual [...] documented as of this encounter Care Teams Fish Hatchery Laborer Relationship Specialty Start Date End Date Nicole Blank MD [address] [address] PCP - General Family Practice 10/02/13 documented as of this encounter
--- OUTSIDE RECORDS SUMMARY | 2025-03-07 18:03 | XMS_ITS | Clinical Summary ---
Author Organization [facility] Address [address] [place] [address] Care Team Providers Care Store Custodian Name Role Phone Nicole Blank MD Primary [...] pt Medications fluticasone propionate (FLONASE) 50 mcg/spray [place], Suspension nasal inhalerIndicatio ns:Allergic rhinitis, unspecified seasonality, [...] 09/25/2008 Immunizations Immunization Administration Dates Next Due (Auterra)(12 YR UP) COVID-19 VACCINE - EMERGENCY USE AUTHORIZATION, MRNA, [id number](PF) 30 MCG/0.3 ML IM SUSP 11/25/2020,11/04/2020 (PNEUMOVAX [...] on file Legal Sex Female 4:03 AM MOTION PICTURE PROJECTIONIST APPRENTICE Gender Identity Not on file Sexual Orientation [...] IMMUNOASSAY, COLORECTAL SCREEN Routine 07/29/2019 4:29 PM MOTION PICTURE PROJECTIONIST APPRENTICE Encounter for screening for malignant neoplasm of [...] clinical management available online at www.shef.ac.uk/FRAX/. Enter PraXcell for Select DXA and the Femoral Neck [...] clinical management available online at www.shef.ac.uk/FRAX/. Enter PraXcell for Select DXA and the Femoral Neck BMD value. us Francisco [facility] ORDERABLES Final Result * OCCULT BLOOD IMMUNOASSAY, COLORECTAL SCREEN (07/29/2019 4:29 PM MOTION PICTURE PROJECTIONIST APPRENTICE) OCCULT BLOOD, STOOL Negative Negative 07/30/2019 12:13 PM MOTION PICTURE PROJECTIONIST APPRENTICE [facility] Stool STOOL SPECIMEN / Unknown 07/29/2019 4:29 PM MOTION PICTURE PROJECTIONIST APPRENTICE 07/29/2019 4:29 PM MOTION PICTURE PROJECTIONIST APPRENTICE us Nicole Blank MD BODY FLUIDS AND STOOLS Bree darling Result [facility] CLIA# [id number] [facility] [place] [address] from Last 3 Months or Most Recently Relevant to Health Maintenance Insurance MEDICARE PART A AND B GENERIC PAYOR ENTERPRISE INTEGRATION DEVELOPER LIFE Care Teams Store Custodian Relationship Specialty Start Date End Date Nicole Blank MD [address] [address] PCP - General Family Practice 10/02/13
--- OUTSIDE RECORDS SUMMARY | 2025-03-07 18:03 | XMS_ITS | Encounter Summary ---
Author Organization [facility] Address [address] [place] [address] Care Team Providers Care Industrial Design Engineer Name Role Phone Nicole Blank MD Primary Care Provider [phone] Encounter Details Date Type Department Care Team (Latest Contact Info) Description 11/24/2002 Outpatient Historical [facility] Family Medicine [place] [address] [facility] 60 [place] [address] Teodoro Burt MD [address] [address] URIN TRACT INFECTION NOS (Primary Dx) Social History Tobacco Use Types Packs/Day Years Used Date Smoking Tobacco: Never Assessed Comments Unknown Sex and Gender Information Value Date Recorded Sex Assigned at Not on file Legal Sex Female 4:03 AM LENS MOLD SETTER Gender Identity Not on file Sexual Orientation [...] as of this encounter Care Teams Industrial Design Engineer Relationship Specialty Start Date End Date Nicole Blank MD [address] [phone] PCP - General Family Practice 10/02/13 documented as of this encounter
--- OUTSIDE RECORDS SUMMARY | 2025-03-07 18:03 | XMS_ITS | Encounter Summary ---
Author Organization [facility] Address [address] [place] [address] Care Team Providers Care Key Person Name Role Phone Nicole Blank MD Primary Care Provider Encounter Details Date Type Department Care Team (Latest Contact Info) Description 08/01/2004 Outpatient Historical [facility] Family Medicine [place] [address] [facility] 60 [place] [address] Shukri Teran DO NO ADDRESS ON FILE OSTEOPOROSIS NOS (Primary Dx); HYPERLIPIDEMIA NEC/NOS; OSTEOARTHROS NOS-UNSPEC Social History Tobacco Use Types Packs/Day Years Used Date Smoking Tobacco: Never Assessed Comments Unknown Sex and Gender Information Value Date Recorded Sex Assigned at Not on file Legal Sex Female 4:03 AM HEAD REFRIGERATION ENGINEER Gender Identity Not on file Sexual [...] documented as of this encounter Care Teams Key Person Relationship Specialty Start Date End Date Nicole Blank MD [address] [address] PCP - General Family Practice 10/02/13 documented as of this encounter
--- OUTSIDE RECORDS SUMMARY | 2025-03-07 18:03 | XMS_ITS | Encounter Summary ---
Author Organization [facility] Address [address] [place] [address] Care Team Providers Care Milk Treater Name Role Phone Nicole Blank MD Primary Care Provider [phone] Encounter Details Date Type Department Care Team (Latest Contact Info) Description 06/12/2005 Outpatient Historical [facility] Family Medicine [place] [address] [facility] 60 [place] [address] Shukri Teran DO NO ADDRESS ON FILE MYALGIA AND MYOSITIS NOS (Primary Dx); HYPERLIPIDEMIA NEC/NOS Social History Tobacco Use Types Packs/Day Years Used Date Smoking Tobacco: Never Assessed Comments Unknown Sex and Gender Information Value Date Recorded Sex Assigned at Not on file Legal Sex Female 4:03 AM REED OR WIND INSTRUMENT REPAIRER Gender Identity Not on file Sexual [...] documented as of this encounter Care Teams Milk Treater Relationship Specialty Start Date End Date Nicole Blank MD [address] [phone] PCP - General Family Practice 10/02/13 documented as of this encounter
--- OUTSIDE RECORDS SUMMARY | 2025-03-07 18:03 | XMS_ITS | Encounter Summary ---
Author Organization [facility] Address [address] [place] [address] Care Team Providers Care Nutritional Services Director Name Role Phone Nicole Blank MD Primary Care Provider Encounter Details Date Type Department Care Team (Latest Contact Info) Description 06/20/2004 Outpatient Historical [facility] Family Medicine [place] [address] [facility] 60 [place] [address] Miguel Zelaya NP NO ADDRESS ON FILE ACUTE PHARYNGITIS (Primary Dx); ACUTE SINUSITIS NOS Social History Tobacco Use Types Packs/Day Years Used Date Smoking Tobacco: Never Assessed Comments Unknown Sex and Gender Information Value Date Recorded Sex Assigned at Not on file Legal Sex Female 4:03 AM ZIPPER SETTER Gender Identity Not on file Sexual [...] documented as of this encounter Care Teams Nutritional Services Director Relationship Specialty Start Date End Date Nicole Blank MD [address] [phone] PCP - General Family Practice 10/02/13 documented as of this encounter
--- OUTSIDE RECORDS SUMMARY | 2025-03-07 18:03 | XMS_ITS | Encounter Summary ---
Author Organization [facility] Address [address] [place] [address] Care Team Providers Care Box Spring Maker Name Role Phone Nicole Blank MD Primary Care Provider Encounter Details Date Type Department Care Team (Latest Contact Info) Description 06/05/2003 Outpatient Historical [facility] Medicine [place] [address] [facility] 60 [place] [address] Shukri Teran DO NO ADDRESS ON FILE HYPERTENSION NOS (Primary Dx); HYPERLIPIDEMIA NEC/NOS; Vaccine for influenza Social History Tobacco Use Types Packs/Day Years Used Date Smoking Tobacco: Never Assessed Comments Unknown Sex and Gender Information Value Date Recorded Sex Assigned at Not on file Legal Sex Female 4:03 AM HEAD WOOD GRINDER Gender Identity Not on file Sexual Orientation [...] documented as of this encounter Care Teams Box Spring Maker Relationship Specialty Start Date End Date Nicole Blank MD [address] [phone] PCP - General Family Practice 10/02/13 documented as of this encounter
--- OUTSIDE RECORDS SUMMARY | 2025-03-07 18:03 | XMS_ITS | Encounter Summary ---
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
--- OUTSIDE RECORDS SUMMARY | 2025-03-07 18:03 | XMS_ITS | Encounter Summary ---
Author Organization [facility] Address [address] [place] [address] Care Team Providers Care Wire Weaver Helper Name Role Phone Nicole Blank MD Primary Care Provider Encounter Details Date Type Department Care Team (Late st Contact Info) Description 07/26/2005 Outpatient Historical [facility] Medicine [address] [address] Shukri Teran DO NO ADDRESS ON FILE Social History Tobacco Use Types Packs/Day Years Used Date Smoking Tobacco: Never Assessed Comments Unknown Sex and Gender Information Value Date Recorded Sex Assigned at Not on file Legal Sex Female 4:03 AM MACHINE FEEDER Gender Identity Not on file Sexual Orientation [...] documented as of this encounter Care Teams Wire Weaver Helper Relationship Specialty Start Date End Date Nicole Blank MD [address] [phone] PCP - General Family Practice 10/02/13 documented as of this encounter
--- OUTSIDE RECORDS SUMMARY | 2025-03-07 18:03 | XMS_ITS | Encounter Summary ---
Author Organization [facility] Address [address] [place] [address] Care Team Providers Care Hospital Account Liaison Name Role Phone Nicole Blank MD Primary Care Provider Encounter Details Date Type Department Care Team (Latest Contact Info) Description 11/17/[address] [facility] Family Medicine [place] [address] [facility] 60 [place] [address] Terese Palomino, RECREATION ATTENDANT [address] [place] [address] WBC DISEASE NOS (Primary Dx); ACUTE BRONCHITIS Social History Tobacco Use Types Packs/Day Years Used Date Smoking Tobacco: Never Assessed Comments Unknown Sex and Gender Information Value Date Recorded Sex Assigned at Not on file Legal Sex Female 4:03 AM RECREATION ADVISER Gender Identity Not on file Sexual Orientation [...] documented as of this encounter Care Teams Hospital Account Liaison Relationship Specialty Start Date End Date Nicole Blank MD [address] [phone] PCP - General Family Practice 10/02/13 documented as of this encounter
--- OUTSIDE RECORDS SUMMARY | 2025-03-07 18:03 | XMS_ITS | Encounter Summary ---
Author Organization [facility] Address [address] [place] [address] Care Team Providers Care Assistant County Engineer Name Role Phone Nicole Blank MD Primary Care Provider Encounter Details Date Type Department Care Team (Latest Contact Info) Description 08/24/2005 Outpatient Historical [facility] Family Medicine [place] [address] [facility] 60 [place] [address] Terese Palomino, ROOF TECHNICIAN [address] [place] [address] ACUTE BRONCHITIS (Primary Dx) Social History Tobacco Use Types Packs/Day Years Used Date Smoking Tobacco: Never Assessed Comments Unknown Sex and Gender Information Value Date Recorded Sex Assigned at Not on file Legal Sex Female 4:03 AM BOOKING PRIZER Gender Identity Not on file Sexual Orientation [...] as of this encounter Care Teams Assistant County Engineer Relationship Specialty Start Date End Date Nicole Blank MD [address] [phone] PCP - General Family Practice 10/02/13 documented as of this encounter
--- OUTSIDE RECORDS SUMMARY | 2025-03-07 18:03 | XMS_ITS | Encounter Summary ---
Author Organization [facility] Address [address] [place] [address] Care Team Providers Care Taxi Dancer Name Role Phone Nicole Blank MD Primary Care Provider Encounter Details Date Type Department Care Team (Latest Contact Info) Description 09/10/2000 Outpatient Historical [facility] Medicine- [address] [phone] Teodoro Burt MD [address] [phone] Acute upper respiratory infections of unspecified site (Primary Dx) Social History Tobacco Use Types Packs/Day Years Used Date Smoking Tobacco: Never Assessed Comments Unknown Sex and Gender Information Value Date Recorded Sex Assigned at Not on file Legal Sex Female 4:03 AM DRAMATIC CRITIC Gender Identity Not on file Sexual Orientation [...] documented as of this encounter Care Teams Taxi Dancer Relationship Specialty Start Date End Date Nicole Blank MD [address] [phone] PCP - General Family Practice 10/02/13 documented as of this encounter
--- OUTSIDE RECORDS SUMMARY | 2025-03-07 18:03 | XMS_ITS | Encounter Summary ---
Author Organization [facility] Address [address] [place] [address] Care Team Providers Care Technology Strategist Name Role Phone Nicole Blank MD Primary Care Provider Encounter Details Date Type Department Care Team (Late st Contact Info) Description 06/05/2003 Outpatient Historical [facility] Medicine [address] [address] Shukri Teran DO NO ADDRESS ON FILE Social History Tobacco Use Types Packs/Day Years Used Date Smoking Tobacco: Never Assessed Comments Unknown Sex and Gender Information Value Date Recorded Sex Assigned at Not on file Legal Sex Female 4:03 AM CLINICAL SYSTEMS EDUCATOR Gender Identity Not on file Sexual [...] documented as of this encounter Care Teams Technology Strategist Relationship Specialty Start Date End Date Nicole Blank MD [address] [phone] PCP - General Family Practice 10/02/13 documented as of this encounter
--- OUTSIDE RECORDS SUMMARY | 2025-03-07 18:03 | XMS_ITS | Encounter Summary ---
Author Organization [facility] Address [address] [place] [address] Care Team Providers Care Community Recreation Coordinator Name Role Phone Nicole Blank MD Primary Care Provider Encounter Details Date Type Department Care Team (Latest Contact Info) Description 10/02/2000 Outpatient Historical [facility] Family Medicine- [address] [place] [phone] Shukri Teran DO NO ADDRESS ON FILE Abdominal pain, unspecified site (Primary Dx) Social History Tobacco Use Types Packs/Day Years Used Date Smoking Tobacco: Never Assessed Comments Unknown Sex and Gender Information Value Date Recorded Sex Assigned at Not on file Legal Sex Female 4:03 AM CULVERT INSTALLER Gender Identity Not on file Sexual [...] documented as of this encounter Care Teams Community Recreation Coordinator Relationship Specialty Start Date End Date Nicole Blank MD [address] [phone] PCP - General Family Practice 10/02/13 documented as of this encounter
--- OUTSIDE RECORDS SUMMARY | 2025-03-07 18:03 | XMS_ITS | Encounter Summary ---
Author Organization [facility] Address [address] [place] [address] Care Team Providers Care Crowning Inspector Name Role Phone Nicole Blank MD Primary Care Provider [phone] Encounter Details Date Type Department Care Team (Late st Contact Info) Description 04/04/2004 Outpatient Historical [facility] Medicine [address] [address] Social History Tobacco Use Types Packs/Day Years Used Date Smoking Tobacco: Never Assessed Comments Unknown Sex and Gender Information Value Date Recorded Sex Assigned at Not on file Legal Sex Female 4:03 AM PLACING JUDGE Gender Identity Not on file Sexual Orientation [...] documented as of this encounter Care Teams Crowning Inspector Relationship Specialty Start Date End Date Nicole Blank MD [address] [phone] PCP - General Family Practice 10/02/13 documented as of this encounter
--- OUTSIDE RECORDS SUMMARY | 2025-03-07 18:03 | XMS_ITS | Encounter Summary ---
Author Organization [facility] Address [address] [place] [address] Care Team Providers Care Field Marketing Manager Name Role Phone Nicole Blank MD Primary Care Provider Encounter Details Date Type Department Care Team (Latest Contact Info) Description 03/16/2000 Outpatient Historical [facility] Family Medicine [place] [address] [facility] 60 [place] [address] Teodoro Burt MD [address] [address] Other and unspecified hyperlipidemia (Primary Dx) Social History Tobacco Use Types Packs/Day Years Used Date Smoking Tobacco: Never Assessed Comments Unknown Sex and Gender Information Value Date Recorded Sex Assigned at Not on file Legal Sex Female 4:03 AM SUBSORTER Gender Identity Not on file Sexual Orientation [...] documented as of this encounter Care Teams Field Marketing Manager Relationship Specialty Start Date End Date Nicole Blank MD [address] [phone] PCP - General Family Practice 10/02/13 documented as of this encounter
--- OUTSIDE RECORDS SUMMARY | 2025-03-07 18:03 | XMS_ITS | Encounter Summary ---
Author Organization [facility] Address [address] [place] [address] Care Team Providers Care Nursing Director Name Role Phone Nicole Blank MD Primary Care Provider Encounter Details Date Type Department Care Team (Late st Contact Info) Description 08/15/2007 [facility] [address] [phone] Terese Palomino, FERRULER [address] [place] [phone] Social History Tobacco Use Types Packs/Day Years Used Date Smoking Tobacco: Never Assessed Comments Unknown Sex and Gender Information Value Date Recorded Sex Assigned at Not on file Legal Sex Female 4:03 AM MANAGER CANCER Gender Identity Not on file Sexual Orientation [...] documented as of this encounter Care Teams Nursing Director Relationship Specialty Start Date End Date Nicole Blank MD [address] [phone] PCP - General Family Practice 10/02/13 documented as of this encounter
--- OUTSIDE RECORDS SUMMARY | 2025-03-07 18:03 | XMS_ITS | Encounter Summary ---
Author Organization [facility] Address [address] [place] [address] Care Team Providers Care Envelope Adjuster Name Role Phone Nicole Blank MD Primary Care Provider Encounter Details Date Type Department Care Team (Latest Contact Info) Description 12/04/2005 Outpatient Historical [facility] Family Medicine [place] [address] [facility] 60 [place] [address] Shukri Teran DO NO ADDRESS ON FILE Electrolyte and Fluid Disorders not Elsewhere Classified (Primary Dx); Other and Unspecified Hyperlipidemia; Unspecified Essential Hypertension Social History Tobacco Use Types Packs/Day Years Used Date Smoking Tobacco: Never Assessed Comments Unknown Sex and Gender Information Value Date Recorded Sex Assigned at Not on file Legal Sex Female 4:03 AM C WPF DEVELOPER Gender Identity Not on file Sexual [...] documented as of this encounter Care Teams Envelope Adjuster Relationship Specialty Start Date End Date Nicole Blank MD [address] [phone] PCP - General Family Practice 10/02/13 documented as of this encounter
--- OUTSIDE RECORDS SUMMARY | 2025-03-07 18:03 | XMS_ITS | Encounter Summary ---
Author Organization [facility] Address [address] [place] [address] Care Team Providers Care Oil Heater Operator Name Role Phone Nicole Blank MD Primary Care Provider Encounter Details Date Type Department Care Team (Late st Contact Info) Description 08/11/2015 Ancillary Orders [facility] [place] [address] [place] [address] Francisco Hensley PA NO ADDRESS [...] on file Legal Sex Female 4:03 AM SOUND EFFECTS SUPERVISOR Gender Identity Not on file Sexual [...] CHEST PA AND LATERAL (08/11/2015 2:28 PM SOUND EFFECTS SUPERVISOR) Anatomical Region Laterality Modality Chest Computed Radiogr aphy 08/11/2015 2:15 PM SOUND EFFECTS SUPERVISOR Narrative 08/12/2015 9:24 AM SOUND EFFECTS SUPERVISOR PROCEDURE XR CHEST, 2 views, 11 August [...] documented as of this encounter Care Teams Oil Heater Operator Relationship Specialty Start Date End Date Nicole Blank MD [address] [facility] 60 [place] [address] PCP - General Family Practice 10/02/13 documented as of this encounter
--- OUTSIDE RECORDS SUMMARY | 2025-03-07 18:03 | XMS_ITS | Encounter Summary ---
Author Organization [facility] Address [address] [place] [address] Care Team Providers Care Manager Critical Care Name Role Phone Nicole Blank MD Primary Care Provider Encounter Details Date Type Department Care Team (Latest Contact Info) Description 05/11/1999 Outpatient Historical [facility] Family Medicine [place] [address] [facility] 60 [place] [phone] Marylou Green NO ADDRESS ON FILE Unspecified acute reaction to stress (Primary Dx); Insomnia, unspecified Social History Tobacco Use Types Packs/Day Years Used Date Smoking Tobacco: Never Assessed Comments Unknown Sex and Gender Information Value Date Recorded Sex Assigned at Not on file Legal Sex Female 4:03 AM ORE TESTER Gender Identity Not on file Sexual [...] as of this encounter Care Teams Manager Critical Care Relationship Specialty Start Date End Date Nicole Blank MD [address] [phone] PCP - General Family Practice 10/02/13 documented as of this encounter
--- OUTSIDE RECORDS SUMMARY | 2025-03-07 18:03 | XMS_ITS | Encounter Summary ---
Author Organization 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 EXAMINATION (Primary Dx); SCREENING MAL NEOP-RECTUM; HYPERTENSION NOS; VACCINE FOR STREP PNEUMONIAE Social History Tobacco Use Types Packs/Day Years Used Date Smoking Tobacco: Never Assessed Comments Unknown Sex and Gender Information Value Date Recorded Sex Assigned at Not on file Legal Sex Female 4:03 AM SKILLS TRAINER Gender Identity Not on file Sexual Orientation [...] documented as of this encounter Care Teams Motion Graphics Designer Relationship Specialty Start Date End Date Nicole Blank MD [address] [phone] PCP - General Family Practice 10/02/13 documented as of this encounter
--- OUTSIDE RECORDS SUMMARY | 2025-03-07 18:03 | XMS_ITS | Encounter Summary ---
Author Organization [facility] Address [address] [place] [address] Care Team Providers Care Clay Processing Labourer Name Role Phone Nicole Blank MD Primary Care Provider Encounter Details Date Type Department Care Team (Latest Contact Info) Description 06/22/1999 Outpatient Historical [facility] Family Medicine [place] [address] [facility] 60 [place] [address] Shukri Teran DO NO ADDRESS ON FILE Other and unspecified hyperlipidemia (Primary Dx) Social History Tobacco Use Types Packs/Day Years Used Date Smoking Tobacco: Never Assessed Comments Unknown Sex and Gender Information Value Date Recorded Sex Assigned at Not on file Legal Sex Female 4:03 AM PATIENT CARE TECHNICIAN INSTRUCTOR Gender Identity Not on file Sexual Orientation [...] documented as of this encounter Care Teams Clay Processing Labourer Relationship Specialty Start Date End Date Nicole Blank MD [address] [phone] PCP - General Family Practice 10/02/13 documented as of this encounter
--- OUTSIDE RECORDS SUMMARY | 2025-03-07 18:03 | XMS_ITS | Encounter Summary ---
Author Organization [facility] Address [address] [place] [address] Care Team Providers Care Journeyman Pipe Fitter Name Role Phone Nicole Blank MD Primary Care Provider Encounter Details Date Type Department Care Team (Latest Contact Info) Description 09/02/2004 Outpatient Historical [facility] Medicine [place] 104 [facility] 60 [place] [address] Shukri Teran DO NO ADDRESS ON FILE ACUTE SINUSITIS NOS (Primary Dx); ACUTE BRONCHITIS Social History Tobacco Use Types Packs/Day Years Used Date Smoking Tobacco: Never Assessed Comments Unknown Sex and Gender Information Value Date Recorded Sex Assigned at Not on file Legal Sex Female 4:03 AM MORNING NEWS ANCHOR Gender Identity Not on file Sexual Orientation [...] documented as of this encounter Care Teams Journeyman Pipe Fitter Relationship Specialty Start Date End Date Nicole Blank MD [address] [phone] PCP - General Family Practice 10/02/13 documented as of this encounter
--- OUTSIDE RECORDS SUMMARY | 2025-03-07 18:03 | XMS_ITS | Encounter Summary ---
Author Organization [facility] Address [address] [place] [address] Care Team Providers Care Mutual Fund Manager Name Role Phone Nicole Blank MD Primary Care Provider Encounter Details Date Type Department Care Team (Latest Contact Info) Description 05/23/2002 Outpatient Historical [facility] Medicine [place] [address] [facility] 60 [place] [address] Shukri Teran DO NO ADDRESS ON FILE Gynecologic examination (Primary Dx); EXT HEMORRHOID W/O COMPL; HYPERTENSION NOS; SCREENING MAL NEOP-RECTUM Social History Tobacco Use Types Packs/Day Years Used Date Smoking Tobacco: Never Assessed Comments Unknown Sex and Gender Information Value Date Recorded Sex Assigned at Not on file Legal Sex Female 4:03 AM WARE CARRIER Gender Identity Not on file Sexual Orientation [...] documented as of this encounter Care Teams Mutual Fund Manager Relationship Specialty Start Date End Date Nicole Blank MD [address] [phone] PCP - General Family Practice 10/02/13 documented as of this encounter
--- OUTSIDE RECORDS SUMMARY | 2025-03-07 18:03 | XMS_ITS | Encounter Summary ---
Author Organization [facility] Address [address] [place] [address] Care Team Providers Care Camp Maintenance Supervisor Name Role Phone Nicole Blank MD Primary Care Provider Encounter Details Date Type Department Care Team (Latest Contact Info) Description 11/14/2002 Outpatient Historical [facility] Family Medicine [place] 104 [facility] 60 [place] [address] Teodoro Burt MD [address] [facility] [address] [place] [address] ADV EFFECT MED/BIOL SUB NOS (Primary Dx); URTICARIA NOS Social History Tobacco Use Types Packs/Day Years Used Date Smoking Tobacco: Never Assessed Comments Unknown Sex and Gender Information Value Date Recorded Sex Assigned at Not on file Legal Sex Female 4:03 AM BARK TANNER Gender Identity Not on file Sexual Orientation [...] documented as of this encounter Care Teams Camp Maintenance Supervisor Relationship Specialty Start Date End Date Nicole Blank MD [address] [phone] PCP - General Family Practice 10/02/13 documented as of this encounter
--- OUTSIDE RECORDS SUMMARY | 2025-03-07 18:03 | XMS_ITS | Encounter Summary ---
Author Organization [facility] Address [address] [place] [address] Care Team Providers Care Marine Reporter Name Role Phone Nicole Blank MD Primary Care Provider [phone] Encounter Details Date Type Department Care Team (Latest Contact Info) Description 08/03/2003 Outpatient Historical [facility] Family Medicine- [address] [place] [facility] [place] [phone] Teodoro Burt MD [address] [address] ACUTE PHARYNGITIS (Primary Dx); ACUTE SINUSITIS NOS Social History Tobacco Use Types Packs/Day Years Used Date Smoking Tobacco: Never Assessed Comments Unknown Sex and Gender Information Value Date Recorded Sex Assigned at Not on file Legal Sex Female 4:03 AM MANAGER GARDEN Gender Identity Not on file Sexual Orientation [...] documented as of this encounter Care Teams Marine Reporter Relationship Specialty Start Date End Date Nicole Blank MD [address] [phone] PCP - General Family Practice 10/02/13 documented as of this encounter
--- OUTSIDE RECORDS SUMMARY | 2025-03-07 18:03 | XMS_ITS | Encounter Summary ---
Author Organization [facility] Address [address] [place] [address] Care Team Providers Care Aircraft Pneudraulic Systems Mechanic Name Role Phone Nicole Blank MD Primary Care Provider [phone] Encounter Details Date Type Department Care Team (Latest Contact Info) Description 09/03/2006 Outpatient Historical [facility] Family Medicine [place] [address] [facility] 60 [place] [address] Miguel Zelaya NP NO ADDRESS ON FILE Acute Pharyngitis (Primary Dx); Postnasal Drip Social History Tobacco Use Types Packs/Day Years Used Date Smoking Tobacco: Never Assessed Comments Unknown Sex and Gender Information Value Date Recorded Sex Assigned at Not on file Legal Sex Female 4:03 AM SOLE FILLER Gender Identity Not on file Sexual [...] documented as of this encounter Care Teams Aircraft Pneudraulic Systems Mechanic Relationship Specialty Start Date End Date Nicole Blank MD [address] [address] PCP - General Family Practice 10/02/13 documented as of this encounter
--- OUTSIDE RECORDS SUMMARY | 2025-03-07 18:03 | XMS_ITS | Encounter Summary ---
Author Organization [facility] Address [address] [place] [address] Care Team Providers Care Manager Requirements Name Role Phone Nicole Blank MD Primary Care Provider [phone] Encounter Details Date Type Department Care Team (Latest Contact Info) Description 12/09/2004 Outpatient Historical [facility] Family Medicine [place] 104 [facility] 60 [place] [address] Shukri Teran DO NO ADDRESS ON FILE Sprain lumbar region (Primary Dx) Social History Tobacco Use Types Packs/Day Years Used Date Smoking Tobacco: Never Assessed Comments Unknown Sex and Gender Information Value Date Recorded Sex Assigned at Not on file Legal Sex Female 4:03 AM MANAGER FRENCH Gender Identity Not on file Sexual Orientation [...] as of this encounter Care Teams Manager Requirements Relationship Specialty Start Date End Date Nicole Blank MD [address] [phone] PCP - General Family Practice 10/02/13 documented as of this encounter
--- OUTSIDE RECORDS SUMMARY | 2025-03-07 18:03 | XMS_ITS | Encounter Summary ---
Author Organization [facility] Address [address] [place] [address] Care Team Providers Care Hairspring I Inspector Name Role Phone Nicole Blank MD Primary Care Provider Encounter Details Date Type Department Care Team (Latest Contact Info) Description 09/20/2004 Outpatient Historical [facility] Medicine [place] 104 [facility] 60 [place] [address] Shukri Teran DO NO ADDRESS ON FILE HYPERLIPIDEMIA NEC/NOS (Primary Dx); ACUTE BRONCHITIS; HYPOTENSION NOS Social History Tobacco Use Types Packs/Day Years Used Date Smoking Tobacco: Never Assessed Comments Unknown Sex and Gender Information Value Date Recorded Sex Assigned at Not on file Legal Sex Female 4:03 AM MANAGER EXCHANGE Gender Identity Not on file Sexual Orientation [...] documented as of this encounter Care Teams Hairspring I Inspector Relationship Specialty Start Date End Date Nicole Blank MD [address] [address] PCP - General Family Practice 10/02/13 documented as of this encounter
--- OUTSIDE RECORDS SUMMARY | 2025-03-07 18:03 | XMS_ITS | Encounter Summary ---
Author Organization [facility] Address [address] [place] [address] Care Team Providers Care Sales Financial Analyst Name Role Phone Nicole Blank MD Primary Care Provider Encounter Details Date Type Department Care Team (Latest Contact Info) Description 05/18/2005 Outpatient Historical [facility] Family Medicine [place] [address] [facility] 60 [place] [phone] Zoe Hernandez MD NO ADDRESS ON FILE Vaccine for influenza (Primary Dx) Social History Tobacco Use Types Packs/Day Years Used Date Smoking Tobacco: Never Assessed Comments Unknown Sex and Gender Information Value Date Recorded Sex Assigned at Not on file Legal Sex Female 4:03 AM REVERSER Gender Identity Not on file Sexual Orientation [...] documented as of this encounter Care Teams Sales Financial Analyst Relationship Specialty Start Date End Date Nicole Blank MD [address] [address] PCP - General Family Practice 10/02/13 documented as of this encounter
--- OUTSIDE RECORDS SUMMARY | 2025-03-07 18:03 | XMS_ITS | Encounter Summary ---
Author Organization [facility] Address [address] [place] [address] Care Team Providers Care Stretching Press Operator Name Role Phone Nicole Blank MD Primary Care Provider Encounter Details Date Type Department Care Team (Latest Contact Info) Description 05/22/2005 Outpatient Historical [facility] Family Medicine [place] [address] [facility] 60 [place] [address] Shukri Teran DO NO ADDRESS ON FILE CHEST PAIN NOS (Primary Dx); Pain in limb; HYPERLIPIDEMIA NEC/NOS Social History Tobacco Use Types Packs/Day Years Used Date Smoking Tobacco: Never Assessed Comments Unknown Sex and Gender Information Value Date Recorded Sex Assigned at Not on file Legal Sex Female 4:03 AM WEB ENGINEER Gender Identity Not on file Sexual [...] documented as of this encounter Care Teams Stretching Press Operator Relationship Specialty Start Date End Date Nicole Blank MD [address] [phone] PCP - General Family Practice 10/02/13 documented as of this encounter
--- OUTSIDE RECORDS SUMMARY | 2025-03-07 18:03 | XMS_ITS | Encounter Summary ---
Author Organization [facility] Address [address] [place] [address] Care Team Providers Care Prevocational/Rehabilitation Counselor Name Role Phone Nicole Blank MD Primary Care Provider [phone] Encounter Details Date Type Department Care Team (Latest Contact Info) Description 02/03/2005 Outpatient Historical [facility] Medicine [place] 104 [facility] 60 [place] [address] Shukri Teran DO NO ADDRESS ON FILE URIN TRACT INFECTION NOS (Primary Dx) Social History Tobacco Use Types Packs/Day Years Used Date Smoking Tobacco: Never Assessed Comments Unknown Sex and Gender Information Value Date Recorded Sex Assigned at Not on file Legal Sex Female 4:03 AM UTILIZATION MANAGEMENT NURSE Gender Identity Not on file Sexual [...] documented as of this encounter Care Teams Prevocational/Rehabilitation Counselor Relationship Specialty Start Date End Date Nicole Blank MD [address] [phone] PCP - General Family Practice 10/02/13 documented as of this encounter
--- OUTSIDE RECORDS SUMMARY | 2025-03-07 18:03 | XMS_ITS | Encounter Summary ---
Author Organization [facility] Address [address] [place] [address] Care Team Providers Care Sander Setter Name Role Phone Nicole Blank MD Primary Care Provider Encounter Details Date Type Department Care Team (Latest Contact Info) Description 09/23/2004 Outpatient Historical [facility] Medicine [place] 104 [facility] 60 [place] [address] Shukri Teran DO NO ADDRESS ON FILE ACUTE BRONCHITIS (Primary Dx) Social History Tobacco Use Types Packs/Day Years Used Date Smoking Tobacco: Never Assessed Comments Unknown Sex and Gender Information Value Date Recorded Sex Assigned at Not on file Legal Sex Female 4:03 AM FACILITIES MAINTENANCE ENGINEER Gender Identity Not on file Sexual [...] documented as of this encounter Care Teams Sander Setter Relationship Specialty Start Date End Date Nicole Blank MD [address] [phone] PCP - General Family Practice 10/02/13 documented as of this encounter
--- OUTSIDE RECORDS SUMMARY | 2025-03-07 18:03 | XMS_ITS | Encounter Summary ---
Author Organization [facility] Address [address] [place] [address] Care Team Providers Care Software Trainer Name Role Phone Nicole Blank MD Primary Care Provider Encounter Details Date Type Department Care Team (Late st Contact Info) Description 08/20/2007 Outpatient Historical [facility] Medicine [address] [address] Shukri Teran DO NO ADDRESS ON FILE Social History Tobacco Use Types Packs/Day Years Used Date Smoking Tobacco: Never Assessed Comments Unknown Sex and Gender Information Value Date Recorded Sex Assigned at Not on file Legal Sex Female 4:03 AM PHARMACY TECHNOLOGY INSTRUCTOR Gender Identity Not on file Sexual [...] as of this encounter Care Teams Software Trainer Relationship Specialty Start Date End Date Nicole Blank MD [address] [address] PCP - General Family Practice 10/02/13 documented as of this encounter
--- OUTSIDE RECORDS SUMMARY | 2025-03-07 18:03 | XMS_ITS | Encounter Summary ---
Author Organization [facility] Address [address] [place] [address] Care Team Providers Care Security And Compliance Analyst Name Role Phone Nicole Blank MD Primary Care Provider Encounter Details Date Type Department Care Team (Latest Contact Info) Description 08/02/2006 Outpatient Historical [facility] Family Medicine [place] 104 [facility] 60 [place] [address] Terese Palomino, DNA SEQUENCING ASSOCIATE [address] [place] [address] Acute Upper Respiratory Infections of Unspecified Site (Primary Dx) Social History Tobacco Use Types Packs/Day Years Used Date Smoking Tobacco: Never Assessed Comments Unknown Sex and Gender Information Value Date Recorded Sex Assigned at Not on file Legal Sex Female 4:03 AM NEONATAL SOCIAL WORKER Gender Identity Not on file Sexual [...] documented as of this encounter Care Teams Security And Compliance Analyst Relationship Specialty Start Date End Date Nicole Blank MD [address] [phone] PCP - General Family Practice 10/02/13 documented as of this encounter
--- OUTSIDE RECORDS SUMMARY | 2025-03-07 18:03 | XMS_ITS | Encounter Summary ---
Author Organization [facility] Address [address] [place] [address] Care Team Providers Care Senior Hydrogeologist Name Role Phone Nicole Blank MD Primary Care Provider Encounter Details Date Type Department Care Team (Latest Contact Info) Description 06/29/1999 Outpatient Historical [facility] Family Medicine [place] 104 [address] [facility] 60 [place] [address] Shukri Teran DO NO ADDRESS ON FILE Other and unspecified hyperlipidemia (Primary Dx) Social History Tobacco Use Types Packs/Day Years Used Date Smoking Tobacco: Never Assessed Comments Unknown Sex and Gender Information Value Date Recorded Sex Assigned at Not on file Legal Sex Female 4:03 AM TEMPERATURE INSPECTOR Gender Identity Not on file Sexual Orientation [...] as of this encounter Care Teams Senior Hydrogeologist Relationship Specialty Start Date End Date Nicole Blank MD [address] [phone] PCP - General Family Practice 10/02/13 documented as of this encounter
--- OUTSIDE RECORDS SUMMARY | 2025-03-07 18:03 | XMS_ITS | Encounter Summary ---
Author Organization [facility] Address [address] [place] [address] Care Team Providers Care Marine Machinist Name Role Phone Nicole Blank MD Primary Care Provider Encounter Details Date Type Department Care Team (Latest Contact Info) Description 10/01/2000 Outpatient Historical [facility] Family Medicine [place] 104 [facility] 60 [place] [address] Teodoro Burt MD [address] [address] Abdominal pain, unspecified site (Primary Dx) Social History Tobacco Use Types Packs/Day Years Used Date Smoking Tobacco: Never Assessed Comments Unknown Sex and Gender Information Value Date Recorded Sex Assigned at Not on file Legal Sex Female 4:03 AM TRACTOR OPERATOR LASER LEVELING Gender Identity Not on file Sexual Orientation [...] as of this encounter Care Teams Marine Machinist Relationship Specialty Start Date End Date Nicole Blank MD [address] [phone] PCP - General Family Practice 10/02/13 documented as of this encounter
--- OUTSIDE RECORDS SUMMARY | 2025-03-07 18:03 | XMS_ITS | Encounter Summary ---
Author Organization [facility] Address [address] [place] [address] Care Team Providers Care Fence Installer Foreman Name Role Phone Nicole Blank MD Primary Care Provider Encounter Details Date Type Department Care Team (Latest Contact Info) Description 04/29/1999 Outpatient Historical [facility] Medicine [place] [address] [facility] 60 [place] [address] Shukri Teran DO NO ADDRESS ON FILE Anxiety state, unspecified (Primary Dx); Unspecified menopausal and postmenopausal disorder; Other and unspecified hyperlipidemia Social History Tobacco Use Types Packs/Day Years Used Date Smoking Tobacco: Never Assessed Comments Unknown Sex and Gender Information Value Date Recorded Sex Assigned at Not on file Legal Sex Female 4:03 AM MEDICAL PRACTITIONERS Gender Identity Not on file Sexual Orientation [...] documented as of this encounter Care Teams Fence Installer Foreman Relationship Specialty Start Date End Date Nicole Blank MD [address] [address] PCP - General Family Practice 10/02/13 documented as of this encounter
--- OUTSIDE RECORDS SUMMARY | 2025-03-07 18:03 | XMS_ITS | Encounter Summary ---
Author Organization [facility] Address [address] [place] [address] Care Team Providers Care Manager Psychiatry Name Role Phone Nicole Blank MD Primary Care Provider [phone] Encounter Details Date Type Department Care Team (Late st Contact Info) Description 08/30/2004 Outpatient Historical [facility] Shukri Teran, NO ADDRESS ON FILE Social History Tobacco Use Types Packs/Day Years Used Date Smoking Tobacco: Never Assessed Comments Unknown Sex and Gender Information Value Date Recorded Sex Assigned at Not on file Legal Sex Female 4:03 AM FASHION BUYING INTERNSHIP Gender Identity Not on file Sexual Orientation [...] as of this encounter Care Teams Manager Psychiatry Relationship Specialty Start Date End Date Nicole Blank MD [address] [place] [phone] PCP - General Family Practice 10/02/13 documented as of this encounter
--- OUTSIDE RECORDS SUMMARY | 2025-03-07 18:03 | XMS_ITS | Encounter Summary ---
Author Organization [facility] Address [address] [place] [address] Care Team Providers Care Professional Skateboarder Name Role Phone Nicole Blank MD Primary Care Provider Encounter Details Date Type Department Care Team (Late st Contact Info) Description 06/01/2003 Outpatient Historical [facility] Medicine [address] [address] Shukri Teran DO NO ADDRESS ON FILE Social History Tobacco Use Types Packs/Day Years Used Date Smoking Tobacco: Never Assessed Comments Unknown Sex and Gender Information Value Date Recorded Sex Assigned at Not on file Legal Sex Female 4:03 AM HOSPITALIST Gender Identity Not on file Sexual Orientation [...] documented as of this encounter Care Teams Professional Skateboarder Relationship Specialty Start Date End Date Nicole Blank MD [address] [address] PCP - General Family Practice 10/02/13 documented as of this encounter
--- OUTSIDE RECORDS SUMMARY | 2025-03-07 18:03 | XMS_ITS | Encounter Summary ---
Author Organization [facility] Address [address] [place] [address] Care Team Providers Care Conservator Artifacts Name Role Phone Nicole Blank MD Primary Care Provider Encounter Details Date Type Department Care Team (Latest Contact Info) Description 10/10/2005 Outpatient Historical [facility] Medicine [place] 104 [facility] 60 [place] [address] Shukri Teran DO NO ADDRESS ON FILE HYPOPOTASSEMIA (Primary Dx) Social History Tobacco Use Types Packs/Day Years Used Date Smoking Tobacco: Never Assessed Comments Unknown Sex and Gender Information Value Date Recorded Sex Assigned at Not on file Legal Sex Female 4:03 AM NAVAL SCIENCE TEACHER Gender Identity Not on file Sexual Orientation [...] documented as of this encounter Care Teams Conservator Artifacts Relationship Specialty Start Date End Date Nicole Blank MD [address] [phone] PCP - General Family Practice 10/02/13 documented as of this encounter
--- OUTSIDE RECORDS SUMMARY | 2025-03-07 18:03 | XMS_ITS | Encounter Summary ---
Author Organization [facility] Address [address] [place] [address] Care Team Providers Care Gta Name Role Phone Nicole Blank MD Primary Care Provider Encounter Details Date Type Department Care Team (Latest Contact Info) Description 07/08/2003 Outpatient Historical [facility] Family Medicine [place] 104 [facility] 60 [place] [address] Shukri Teran DO NO ADDRESS ON FILE HYPERTENSION NOS (Primary Dx); HYPOPOTASSEMIA Social History Tobacco Use Types Packs/Day Years Used Date Smoking Tobacco: Never Assessed Comments Unknown Sex and Gender Information Value Date Recorded Sex Assigned at Not on file Legal Sex Female 4:03 AM VOCATIONAL TEACHER Gender Identity Not on file Sexual [...] documented as of this encounter Care Teams Gta Relationship Specialty Start Date End Date Nicole Blank MD [address] [address] PCP - General Family Practice 10/02/13 documented as of this encounter
--- OUTSIDE RECORDS SUMMARY | 2025-03-07 18:04 | XMS_ITS | Encounter Summary ---
Author Organization [facility] Address [address] [place] [address] Care Team Providers Care Vat Tender Name Role Phone Jordan Bautista MD Primary Care Provider [phone] Encounter Details Date Type Department Care Team [...] on file Legal Sex Female 4:28 AM INSURANCE OFFICE SUPERVISOR Gender Identity Not on file Sexual Orientation Not on file COVID-19 Exposure Response Date Recorded In the last month, have you been in contact with someone who was confirmed or suspected to have Coronavirus / COVID-19? No / Unsure 08/31/2021 11:21 AM INSURANCE OFFICE SUPERVISOR documented as of this encounter Plan of Treatment Upcoming Encounters Date Type Department Care Team (Late Contact Info) Description 03/13/2025 8:20 AM CDT Office Visit [facility] [address] [address] Ramona Caballero FNP [address] [address] 04/10/2025 3:00 PM CDT Office Visit [facility] [address] [place] [address] Jordan Bautista MD [address] [place] [phone] 05/21/2025 9:00 AM CDT Appointment [facility] [address] [place] [address] 11/27/2025 8:00 AM CDT Office Visit [facility] [address] [place] [address] Kelly Donohue, [facility] [address] [place] [address] documented as of this encounter Visit Diagnoses Not on filedocumented in this encounter Additional Health Concerns Infection Onset Date Last Indicated Resolved Time R/O COVID-19 09/22/2024 09/22/2024 09/23/2024 8:27 AM INSURANCE OFFICE SUPERVISOR COVID-19 10/27/2024 10/27/2024 11/16/2024 1:16 AM CDT documented as of this encounter Care Teams Vat Tender Relationship Specialty Start Date End Date Jordan Bautista MD [address] [facility] [place] [address] PCP - General Family Practice 08/24/21 documented as of this encounter
--- OUTSIDE RECORDS SUMMARY | 2025-03-07 18:04 | XMS_ITS | Encounter Summary ---
Author Organization [facility] Address [address] [place] [address] Care Team Providers Care Cereal Maker Name Role Phone Jordan Bautista MD Primary Care Provider [phone] Encounter Details Date Type Department Care Team [...] on file Legal Sex Female 4:28 AM GROUND SERVICES INSTRUCTOR Gender Identity Not on file Sexual Orientation Not on file COVID-19 Exposure Response Date Recorded In the last month, have you been in contact with someone who was confirmed or suspected to have Coronavirus / COVID-19? Unable to assess 09/12/2021 1:14 PM GROUND SERVICES INSTRUCTOR documented as of this encounter Plan of Treatment Upcoming Encounters Date Type Department Care Team (Late Contact Info) Description 03/13/2025 8:20 AM CDT Office Visit [facility] Family Medicine [place] [address] [address] Ramona Caballero FNP [address] [address] 04/10/2025 3:00 PM CDT Office Visit [facility] [address] [place] [address] Jordan Bautista MD [address] [place] [address] 05/21/2025 9:00 AM CDT Appointment [facility] [address] [place] [address] 11/27/2025 8:00 AM CDT Office Visit [facility] [address] [place] [address] Kelly Donohue, [facility] [address] [place] [address] documented as of this encounter Visit Diagnoses Not on filedocumented in this encounter Additional Health Concerns Infection Onset Date Last Indicated Resolved Time R/O COVID-19 09/22/2024 09/22/2024 09/23/2024 8:27 AM GROUND SERVICES INSTRUCTOR COVID-19 10/27/2024 10/27/2024 11/16/2024 1:16 AM CDT documented as of this encounter Care Teams Cereal Maker Relationship Specialty Start Date End Date Jordan Bautista MD [address] [facility] [place] [address] PCP - General Family Practice 08/24/21 documented as of this encounter
--- OUTSIDE RECORDS SUMMARY | 2025-03-07 18:04 | XMS_ITS | Encounter Summary ---
Author Organization [facility] Address [address] [place] [address] Care Team Providers Care Manager Mortgage Name Role Phone Jordan Bautista MD Primary Care Provider +1 [phone] Encounter Details Date Type Department Care Team [...] on file Legal Sex Female 4:28 AM FARM FACILITY MANAGER Gender Identity Not on file Sexual Orientation Not on file COVID-19 Exposure Response Date Recorded In the last month, have you been in contact with someone who was confirmed or suspected to have Coronavirus / COVID-19? Unable to assess 09/12/2021 1:14 PM FARM FACILITY MANAGER documented as of this encounter Plan of Treatment Upcoming Encounters Date Type Department Care Team (Late Contact Info) Description 03/13/2025 8:20 AM CDT Office Visit [facility] [place] [address] [address] Ramona Caballero FNP [address] [address] 04/10/2025 3:00 PM CDT Office Visit [facility] [address] [place] [address] Jordan Bautista MD [address] [place] [address] 05/21/2025 9:00 AM CDT Appointment [facility] [address] [place] [address] 11/27/2025 8:00 AM CDT Office Visit [facility] [address] [place] [address] Kelly Donohue, [facility] [address] [place] [address] documented as of this encounter Visit Diagnoses Not on filedocumented in this encounter Additional Health Concerns Infection Onset Date Last Indicated Resolved Time R/O COVID-19 09/22/2024 09/22/2024 09/23/2024 8:27 AM FARM FACILITY MANAGER COVID-19 10/27/2024 10/27/2024 11/16/2024 1:16 AM CDT documented as of this encounter Care Teams Manager Mortgage Relationship Specialty Start Date End Date Jordan Bautista MD [address] [place] [address] PCP - General Family Practice 08/24/21 documented as of this encounter
--- OUTSIDE RECORDS SUMMARY | 2025-03-07 18:04 | XMS_ITS | Encounter Summary ---
Author Organization [facility] Address [address] [place] [address] Care Team Providers Care Basket Filler Name Role Phone Jordan Bautista MD Primary Care Provider +1 [phone] Encounter Details Date Type Department Care Team [...] file Legal Sex Female 4:28 AM C D STILL OPERATOR Gender Identity Not on file Sexual Orientation Not on file COVID-19 Exposure Response Date Recorded In the last month, have you been in contact with someone who was confirmed or suspected to have Coronavirus / COVID-19? No / Unsure 08/31/2021 11:21 AM C D STILL OPERATOR documented as of this encounter Plan of Treatment Upcoming Encounters Date Type Department Care Team (Late Contact Info) Description 03/13/2025 8:20 AM CDT Office Visit [facility] [address] [address] Ramona Caballero FNP [address] [address] 04/10/2025 3:00 PM CDT Office Visit [facility] [address] [place] [address] Jordan Bautista MD [address] [place] [address] 05/21/2025 9:00 AM CDT Appointment [facility] [address] [place] [address] 11/27/2025 8:00 AM CDT Office Visit [facility] [address] [place] [address] Kelyl Donohue, [facility] [address] [place] [address] documented as of this encounter Visit Diagnoses Not on filedocumented in this encounter Additional Health Concerns Infection Onset Date Last Indicated Resolved Time R/O COVID-19 09/22/2024 09/22/2024 09/23/2024 8:27 AM C D STILL OPERATOR COVID-19 10/27/2024 10/27/2024 11/16/2024 1:16 AM CDT documented as of this encounter Care Teams Basket Filler Relationship Specialty Start Date End Date Jordan Bautista MD [address] [place] [address] PCP - General Family Practice 08/24/21 documented as of this encounter
--- OUTSIDE RECORDS SUMMARY | 2025-03-07 18:04 | XMS_ITS | Encounter Summary ---
Author Organization [facility] Address [address] [place] [address] Care Team Providers Care Painter Set Name Role Phone Jordan Bautista MD Primary Care Provider +1 [phone] Encounter Details Date Type Department Care Team [...] on file Legal Sex Female 4:28 AM COMMUNICATIONS DEPARTMENT CHAIR Gender Identity Not on file Sexual Orientation Not on file COVID-19 Exposure Response Date Recorded In the last month, have you been in contact with someone who was confirmed or suspected to have Coronavirus / COVID-19? Unable to assess 09/12/2021 1:14 PM COMMUNICATIONS DEPARTMENT CHAIR documented as of this encounter Plan of Treatment Upcoming Encounters Date Type Department Care Team (Late Contact Info) Description 03/13/2025 8:20 AM CDT Office Visit [facility] [place] [address] [address] Ramona Caballero FNP [address] [address] 04/10/2025 3:00 PM CDT Office Visit [facility] [address] [place] [address] Jordan Bautista MD [address] [place] [address] 05/21/2025 9:00 AM CDT Appointment [facility] [address] [place] [address] 11/27/2025 8:00 AM CDT Office Visit [facility] [address] [place] [address] Kelly Donohue, [facility] [address] [place] [address] documented as of this encounter Visit Diagnoses Not on filedocumented in this encounter Additional Health Concerns Infection Onset Date Last Indicated Resolved Time R/O COVID-19 09/22/2024 09/22/2024 09/23/2024 8:27 AM COMMUNICATIONS DEPARTMENT CHAIR COVID-19 10/27/2024 10/27/2024 11/16/2024 1:16 AM CDT documented as of this encounter Care Teams Painter Set Relationship Specialty Start Date End Date Jordan Bautista MD [address] [place] [address] PCP - General Family Practice 08/24/21 documented as of this encounter
--- OUTSIDE RECORDS SUMMARY | 2025-03-07 18:04 | XMS_ITS | Encounter Summary ---
Author Organization [facility] Address [address] [place] [address] Care Team Providers Care Plasterer Stucco Name Role Phone Nicole Blank MD Primary Care Provider Encounter Details Date Type Department Care Team (Late st Contact Info) Description 07/29/2019 Lab Requisition [facility] [place] [address] [place] [address] Nicole Blank MD [address] [place] [address] Encounter for screening for malignant neoplasm of colon Social History Tobacco Use Types Packs/Day Years Used Date Smoking Tobacco: Never Smokeless Tobacco: Never Alcohol Use Standard Drinks/Week Comments No 0 (1 standard drink = 0.6 oz pur e alcohol) Comments No Sex and Gender Information Value Date Recorded Sex Assigned at Not on file Legal Sex Female 4:03 AM VIDEOGAME DESIGNER Gender Identity Not on file Sexual Orientation [...] IMMUNOASSAY, COLORECTAL SCREEN Routine 07/29/2019 4:29 PM VIDEOGAME DESIGNER Encounter for screening for malignant neoplasm of colon documented in this encounter Results * OCCULT BLOOD IMMUNOASSAY, COLORECTAL SCREEN (07/29/2019 4:29 PM VIDEOGAME DESIGNER) OCCULT BLOOD, STOOL Negative Negative 07/30/2019 12:13 PM VIDEOGAME DESIGNER [facility] Stool STOOL SPECIMEN / Unknown 07/29/2019 4:29 PM VIDEOGAME DESIGNER 07/29/2019 4:29 PM VIDEOGAME DESIGNER us Nicole Blank MD BODY FLUIDS AND STOOLS Bree darling Result [facility] CLIA# [id number] [address] [place] [address] documented in this encounter Visit Diagnoses Diagnosis Encounter for screening for malignant neoplasm of colon Special screening for malignant neoplasms, colon documented in this encounter Additional Health Concerns Infection Onset Date Last Indicated Resolved Time R/O COVID-19 04/27/2020 04/27/2020 04/29/2020 2:15 AM CDT R/O COVID-19 02/01/2021 02/01/2021 02/01/2021 3:10 PM CDT documented as of this encounter Care Teams Plasterer Stucco Relationship Specialty Start Date End Date Nicole Blank MD [address] [facility] [address] [place] [address] PCP - General Family Practice 10/02/13 documented as of this encounter
--- OUTSIDE RECORDS SUMMARY | 2025-03-07 18:04 | XMS_ITS | Encounter Summary ---
Author Organization [facility] Address [address] [place] [address] Care Team Providers Care Support Teacher Name Role Phone Jordan Bautista MD Primary Care Provider +1 [phone] Encounter Details Date Type Department Care Team [...] on file Legal Sex Female 4:28 AM FILLER SIFTER HELPER Gender Identity Not on file Sexual Orientation Not on file COVID-19 Exposure Response Date Recorded In the last month, have you been in contact with someone who was confirmed or suspected to have Coronavirus / COVID-19? Unable to assess 09/12/2021 1:14 PM FILLER SIFTER HELPER documented as of this encounter Plan of Treatment Upcoming Encounters Date Type Department Care Team (Late Contact Info) Description 03/13/2025 8:20 AM CDT Office Visit [facility] [place] [address] [address] Ramona Caballero FNP [address] [address] 04/10/2025 3:00 PM CDT Office Visit [facility] [address] [place] [address] Jordan Bautista MD [address] [place] [address] 05/21/2025 9:00 AM CDT Appointment [facility] [address] [place] [address] 11/27/2025 8:00 AM CDT Office Visit [facility] [address] [place] [address] Kelly Donohue, [facility] [address] [place] [address] documented as of this encounter Visit Diagnoses Not on filedocumented in this encounter Additional Health Concerns Infection Onset Date Last Indicated Resolved Time R/O COVID-19 09/22/2024 09/22/2024 09/23/2024 8:27 AM FILLER SIFTER HELPER COVID-19 10/27/2024 10/27/2024 11/16/2024 1:16 AM CDT documented as of this encounter Care Teams Support Teacher Relationship Specialty Start Date End Date Jordan Bautista MD [address] [place] [address] PCP - General Family Practice 08/24/21 documented as of this encounter
--- OUTSIDE RECORDS SUMMARY | 2025-03-07 18:04 | XMS_ITS | Encounter Summary ---
Author Organization [facility] Address [address] [place] [address] Care Team Providers Care Absorber Operator Name Role Phone Jordan Bautista MD Primary Care Provider +1 [phone] Encounter Details Date Type Department Care Team [...] on file Legal Sex Female 4:28 AM VIRTUAL ASSISTANT Gender Identity Not on file Sexual Orientation Not on file COVID-19 Exposure Response Date Recorded In the last month, have you been in contact with someone who was confirmed or suspected to have Coronavirus / COVID-19? Unable to assess 09/12/2021 1:14 PM VIRTUAL ASSISTANT documented as of this encounter Plan of Treatment Upcoming Encounters Date Type Department Care Team (Late Contact Info) Description 03/13/2025 8:20 AM CDT Office Visit [facility] [place] [address] [address] Ramona Caballero FNP [address] [address] 04/10/2025 3:00 PM CDT Office Visit [facility] [address] [place] [address] Jordan Bautista MD [address] [place] [address] 05/21/2025 9:00 AM CDT Appointment [facility] [address] [place] [address] 11/27/2025 8:00 AM CDT Office Visit [facility] [address] [place] [address] Kelly Donohue, [facility] [address] [place] [address] documented as of this encounter Visit Diagnoses Not on filedocumented in this encounter Additional Health Concerns Infection Onset Date Last Indicated Resolved Time R/O COVID-19 09/22/2024 09/22/2024 09/23/2024 8:27 AM VIRTUAL ASSISTANT COVID-19 10/27/2024 10/27/2024 11/16/2024 1:16 AM CDT documented as of this encounter Care Teams Absorber Operator Relationship Specialty Start Date End Date Jordan Bautista MD [address] [facility] [place] [address] PCP - General Family Practice 08/24/21 documented as of this encounter
--- OUTSIDE RECORDS SUMMARY | 2025-03-07 18:04 | XMS_ITS | Encounter Summary ---
Author Organization [facility] Address [address] [place] [address] Care Team Providers Care Coreroom Foundry Laborer Name Role Phone Jordan Bautista MD Primary Care Provider +1 [phone] Encounter Details Date Type Department Care Team [...] on file Legal Sex Female 4:28 AM TANK ASSEMBLER Gender Identity Not on file Sexual Orientation Not on file COVID-19 Exposure Response Date Recorded In the last month, have you been in contact with someone who was confirmed or suspected to have Coronavirus / COVID-19? No / Unsure 08/31/2021 11:21 AM TANK ASSEMBLER documented as of this encounter Plan of Treatment Upcoming Encounters Date Type Department Care Team (Late Contact Info) Description 03/13/2025 8:20 AM CDT Office Visit [facility] [address] [address] Ramona Caballero FNP [address] [address] 04/10/2025 3:00 PM CDT Office Visit [facility] [address] [place] [address] Jordan Bautista MD [address] [place] [address] 05/21/2025 9:00 AM CDT Appointment [facility] [address] [place] [address] 11/27/2025 8:00 AM CDT Office Visit [facility] [address] [place] [address] Kelly Donohue, [facility] [address] [place] [address] documented as of this encounter Visit Diagnoses Not on filedocumented in this encounter Additional Health Concerns Infection Onset Date Last Indicated Resolved Time R/O COVID-19 09/22/2024 09/22/2024 09/23/2024 8:27 AM TANK ASSEMBLER COVID-19 10/27/2024 10/27/2024 11/16/2024 1:16 AM CDT documented as of this encounter Care Teams Coreroom Foundry Laborer Relationship Specialty Start Date End Date Jordan Bautista MD [address] [facility] [place] [address] PCP - General Family Practice 08/24/21 documented as of this encounter
--- OUTSIDE RECORDS SUMMARY | 2025-03-07 18:04 | XMS_ITS | Encounter Summary ---
Author Organization [facility] Address [address] [place] [address] Care Team Providers Care Manager Performance Name Role Phone Jordan Bautista MD Primary Care Provider +1 -[phone] Encounter Details Date Type Department Care Team [...] on file Legal Sex Female 4:28 AM PENSION ADVISER Gender Identity Not on file Sexual Orientation Not on file COVID-19 Exposure Response Date Recorded In the last month, have you been in contact with someone who was confirmed or suspected to have Coronavirus / COVID-19? Unable to assess 09/12/2021 1:14 PM PENSION ADVISER documented as of this encounter Plan of Treatment Upcoming Encounters Date Type Department Care Team (Late Contact Info) Description 03/13/2025 8:20 AM CDT Office Visit [facility] [place] [address] [address] Ramona Caballero FNP [address] [address] 04/10/2025 3:00 PM CDT Office Visit [facility] [address] [place] [address] Jordan Bautista MD [address] [place] [address] 05/21/2025 9:00 AM CDT Appointment [facility] [address] [place] [address] 11/27/2025 8:00 AM CDT Office Visit [facility] [address] [place] [address] Kelly Donohue, [facility] [address] [place] [address] documented as of this encounter Visit Diagnoses Not on filedocumented in this encounter Additional Health Concerns Infection Onset Date Last Indicated Resolved Time R/O COVID-19 09/22/2024 09/22/2024 09/23/2024 8:27 AM PENSION ADVISER COVID-19 10/27/2024 10/27/2024 11/16/2024 1:16 AM CDT documented as of this encounter Care Teams Manager Performance Relationship Specialty Start Date End Date Jordan Bautista MD [address] [facility] [place] [address] PCP - General Family Practice 08/24/21 documented as of this encounter
--- OUTSIDE RECORDS SUMMARY | 2025-03-07 18:04 | XMS_ITS | Encounter Summary ---
Author Organization [facility] Address [address] [place] [address] Care Team Providers Care Online User Experience Strategist Name Role Phone Jordan Bautista MD Primary Care Provider +1 -[phone] Encounter Details Date Type Department Care Team [...] on file Legal Sex Female 4:28 AM READINESS PARAPROFESSIONAL Gender Identity Not on file Sexual Orientation Not on file COVID-19 Exposure Response Date Recorded In the last month, have you been in contact with someone who was confirmed or suspected to have Coronavirus / COVID-19? No / Unsure 08/31/2021 11:21 AM READINESS PARAPROFESSIONAL documented as of this encounter Plan of Treatment Upcoming Encounters Date Type Department Care Team (Late Contact Info) Description 03/13/2025 8:20 AM CDT Office Visit [facility] [address] [address] Ramona Caballero FNP [address] [address] 04/10/2025 3:00 PM CDT Office Visit [facility] [address] [place] [address] Jordan Bautista MD [address] [place] [address] 05/21/2025 9:00 AM CDT Appointment [facility] [address] [place] [address] 11/27/2025 8:00 AM CDT Office Visit [facility] [address] [place] [address] Kelly Donohue, [facility] [address] [place] [address] documented as of this encounter Visit Diagnoses Not on filedocumented in this encounter Additional Health Concerns Infection Onset Date Last Indicated Resolved Time R/O COVID-19 09/22/2024 09/22/2024 09/23/2024 8:27 AM READINESS PARAPROFESSIONAL COVID-19 10/27/2024 10/27/2024 11/16/2024 1:16 AM CDT documented as of this encounter Care Teams Online User Experience Strategist Relationship Specialty Start Date End Date Jordan Bautista MD [address] [place] [address] PCP - General Family Practice 08/24/21 documented as of this encounter
--- OUTSIDE RECORDS SUMMARY | 2025-03-07 18:04 | XMS_ITS | Encounter Summary ---
Author Organization [facility] Address [address] [place] [address] Care Team Providers Care Cattle Dealer Name Role Phone Jordan Bautista MD Primary Care Provider [phone] [phone] Encounter Details Date Type Department Care Team [...] on file Legal Sex Female 4:28 AM CAD MANAGER Gender Identity Not on file Sexual Orientation Not on file COVID-19 Exposure Response Date Recorded In the last month, have you been in contact with someone who was confirmed or suspected to have Coronavirus / COVID-19? No / Unsure 08/31/2021 11:21 AM CAD MANAGER documented as of this encounter Plan of Treatment Upcoming Encounters Date Type Department Care Team (Late Contact Info) Description 03/13/2025 8:20 AM CDT Office Visit [facility] [address] [address] Ramona Caballero FNP [address] [address] 04/10/2025 3:00 PM CDT Office Visit [facility] [address] [place] [address] Jordan Bautista MD [address] [place] [address] 05/21/2025 9:00 AM CDT Appointment [facility] [address] [place] [address] 11/27/2025 8:00 AM CDT Office Visit [facility] [address] [place] [address] Kelly Donohue, [facility] [address] [place] [address] documented as of this encounter Visit Diagnoses Not on filedocumented in this encounter Additional Health Concerns Infection Onset Date Last Indicated Resolved Time R/O COVID-19 09/22/2024 09/22/2024 09/23/2024 8:27 AM CAD MANAGER COVID-19 10/27/2024 10/27/2024 11/16/2024 1:16 AM CDT documented as of this encounter Care Teams Cattle Dealer Relationship Specialty Start Date End Date Jordan Bautista MD [address] [facility] [place] [address] PCP - General Family Practice 08/24/21 documented as of this encounter
--- OUTSIDE RECORDS SUMMARY | 2025-03-07 18:04 | XMS_ITS | Encounter Summary ---
Author Organization [facility] Address [address] [place] [address] Care Team Providers Care Motorcycle Repairer Name Role Phone Jordan Bautista MD Primary Care Provider +1 [phone] Encounter Details Date Type Department Care Team [...] on file Legal Sex Female 4:28 AM CONE CLEANER Gender Identity Not on file Sexual Orientation Not on file COVID-19 Exposure Response Date Recorded In the last month, have you been in contact with someone who was confirmed or suspected to have Coronavirus / COVID-19? Unable to assess 09/12/2021 1:14 PM CONE CLEANER documented as of this encounter Plan of Treatment Upcoming Encounters Date Type Department Care Team (Late Contact Info) Description 03/13/2025 8:20 AM CDT Office Visit [facility] Medicine [place] [address] [address] Ramona Caballero FNP [address] [address] 04/10/2025 3:00 PM CDT Office Visit [facility] [address] [place] [address] Jordan Bautista MD [address] [place] [address] 05/21/2025 9:00 AM CDT Appointment [facility] [address] [place] [address] 11/27/2025 8:00 AM CDT Office Visit [facility] [address] [place] [address] Kelly Donohue, [facility] [address] [place] [address] documented as of this encounter Visit Diagnoses Not on filedocumented in this encounter Additional Health Concerns Infection Onset Date Last Indicated Resolved Time R/O COVID-19 09/22/2024 09/22/2024 09/23/2024 8:27 AM CONE CLEANER COVID-19 10/27/2024 10/27/2024 11/16/2024 1:16 AM CDT documented as of this encounter Care Teams Motorcycle Repairer Relationship Specialty Start Date End Date Jordan Bautista MD [address] [facility] [place] [address] PCP - General Family Practice 08/24/21 documented as of this encounter
--- OUTSIDE RECORDS SUMMARY | 2025-03-07 18:04 | XMS_ITS | Encounter Summary ---
Author Organization [facility] Address [address] [place] [address] Care Team Providers Care Oven Builder Name Role Phone Jordan Bautista MD Primary Care Provider +1 [phone] Encounter Details Date Type Department Care Team [...] on file Legal Sex Female 4:28 AM SUIT MAKER Gender Identity Not on file Sexual Orientation Not on file COVID-19 Exposure Response Date Recorded In the last month, have you been in contact with someone who was confirmed or suspected to have Coronavirus / COVID-19? No / Unsure 08/31/2021 11:21 AM SUIT MAKER documented as of this encounter Plan of Treatment Upcoming Encounters Date Type Department Care Team (Late Contact Info) Description 03/13/2025 8:20 AM CDT Office Visit [facility] [address] [address] Ramona Caballero FNP [address] [address] 04/10/2025 3:00 PM CDT Office Visit [facility] [address] [place] [address] Jordan Bautista MD [address] [place] [address] 05/21/2025 9:00 AM CDT Appointment [facility] [address] [place] [address] 11/27/2025 8:00 AM CDT Office Visit [facility] [address] [place] [address] Kelly Donohue, [facility] [address] [place] [address] documented as of this encounter Visit Diagnoses Not on filedocumented in this encounter Additional Health Concerns Infection Onset Date Last Indicated Resolved Time R/O COVID-19 09/22/2024 09/22/2024 09/23/2024 8:27 AM SUIT MAKER COVID-19 10/27/2024 10/27/2024 11/16/2024 1:16 AM CDT documented as of this encounter Care Teams Oven Builder Relationship Specialty Start Date End Date Jordan Bautista MD [address] [facility] [place] [address] PCP - General Family Practice 08/24/21 documented as of this encounter
--- OUTSIDE RECORDS SUMMARY | 2025-03-07 18:04 | XMS_ITS | Encounter Summary ---
Author Organization [facility] Address [address] [place] [address] Care Team Providers Care Supervisor Solder Making Name Role Phone Nicole Blank MD Primary Care Provider Reason for Referral * Outpatient Services (Routine) - Closed Specialty Diagnoses / Procedures Referred By Carlee cordova Referred To Contact Radiology Diagnoses Visit for screening mammogram Procedures MAMMO DIGITIZED STUDY Shukri Teran DO NO ADDRESS ON FILE [facility] [address] [facility] [address] [place] [address] Phone: tel: fax: Referral ID Status Reason Start Date Expiration Date Visits Re quested Visits Authorized [id number] Closed 02/13/2012 02/12/2013 1 1 Encounter Details Date Type Department Care Team (Late st Contact Info) Description 02/13/2012 Ancillary Orders [facility] Er Medicine [place] 104 [facility] 60 [place] [address] Shukri Teran DO NO ADDRESS [...] on file Legal Sex Female 4:03 AM WIRE CUTTER Gender Identity Not on file Sexual Orientation Not on file Occupation Industry Job Start Date Job End Date Not on file Not on file Not on file Not on file documented as of this encounter Plan of Treatment Not on file documented as of this encounter Results * MAMMO DIGITIZED STUDY (09/21/2005 10:43 AM WIRE CUTTER) Narrative Sheila Soares, RT - 02/13/2012 10:44 AM CDT Order information only. Exam was auto-finalized. Procedure Note Sheila oSares, RT - 02/13/2012 Order information only. Exam [...] as of this encounter Care Teams Supervisor Solder Making Relationship Specialty Start Date End Date Nicole Blank MD [address] [address] PCP - General Family Practice 10/02/13 documented as of this encounter
--- OUTSIDE RECORDS SUMMARY | 2025-03-07 18:04 | XMS_ITS | Encounter Summary ---
Author Organization [facility] Address [address] [place] [address] Care Team Providers Care Environmental Intern Name Role Phone Nicole Blank MD Primary Care Provider Reason for Referral * Outpatient Services (Routine) - Closed Specialty Diagnoses / Procedures Referred By Carlee cordova Referred To Contact Radiology Diagnoses Visit for screening mammogram Procedures MAMMO DIGITIZED STUDY Shukri Teran DO NO ADDRESS ON FILE [facility] [address] [facility] 60 [place] [address] Phone: tel: fax: Referral ID Status Reason Start Date Expiration Date Visits Re quested Visits Authorized [id number] Closed 02/13/2012 02/12/2013 1 1 Encounter Details Date Type Department Care Team (Late st Contact Info) Description 02/13/2012 Ancillary Orders [facility] Medicine [place] 104 [facility] 60 [place] [address] Shukri Teran DO NO ADDRESS [...] on file 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
--- OUTSIDE RECORDS SUMMARY | 2025-03-07 18:04 | XMS_ITS | Encounter Summary ---
Author Organization [facility] Address [address] [place] [address] Care Team Providers Care Force Adjustment Supervisor Name Role Phone Jordan Bautista MD Primary Care Provider [phone] Encounter Details Date Type Department Care Team [...] on file Legal Sex Female 4:28 AM MANAGER COST Gender Identity Not on file Sexual Orientation Not on file COVID-19 Exposure Response Date Recorded In the last month, have you been in contact with someone who was confirmed or suspected to have Coronavirus / COVID-19? Unable to assess 09/12/2021 1:14 PM MANAGER COST documented as of this encounter Plan of Treatment Upcoming Encounters Date Type Department Care Team (Late Contact Info) Description 03/13/2025 8:20 AM CDT Office Visit [facility] Family Medicine [place] [address] [address] Ramona Caballero FNP [address] [address] 04/10/2025 3:00 PM CDT Office Visit [facility] [address] [place] [address] Jordan Bautista MD [address] [place] [address] 05/21/2025 9:00 AM CDT Appointment [facility] [address] [place] [address] 11/27/2025 8:00 AM CDT Office Visit [facility] [address] [place] [address] Kelly Donohue, [facility] [address] [place] [address] documented as of this encounter Visit Diagnoses Not on filedocumented in this encounter Additional Health Concerns Infection Onset Date Last Indicated Resolved Time R/O COVID-19 09/22/2024 09/22/2024 09/23/2024 8:27 AM MANAGER COST COVID-19 10/27/2024 10/27/2024 11/16/2024 1:16 AM CDT documented as of this encounter Care Teams Force Adjustment Supervisor Relationship Specialty Start Date End Date Jordan Bautista MD [address] [facility] [place] [address] PCP - General Family Practice 08/24/21 documented as of this encounter
--- OUTSIDE RECORDS SUMMARY | 2025-03-07 18:04 | XMS_ITS | Encounter Summary ---
Author Organization [facility] Address [address] [place] [address] Care Team Providers Care Guide Excursion Name Role Phone Nicole Blank MD Primary Care Provider Reason for Referral * Radiology Services (Routine) - Closed Specialty Diagnoses / Procedures Referred By Contac t Referred To Contact Radiology Diagnoses Breast cancer screening by mammogram Procedures MAMMO SCREEN BILAT W OR WO CAD Francisco Hensley PA [facility] Mammography [place] [address] [facility] 60 [place] [address] Phone: tel: fax: Referral ID Status Reason Start Date Expiration Date Visits Re quested Visits Authorized [id number] Closed 06/25/2019 07/25/2020 1 1 TH PROMOTION MANAGER Encounter Details Date Type Department Care Team (Latest Contact Info) Description 06/25/2019 Ancillary Orders [facility] Scheduling [address] [facility] 60 [place] [address] Francisco Hensley PA NO ADDRESS [...] on file Legal Sex Female 4:03 AM HEALTH PROMOTION MANAGER Gender Identity Not on file Sexual [...] W OR WO CAD (07/23/2019 9:33 AM HEALTH PROMOTION MANAGER) Anatomical Region Laterality Modality Breast Bilateral Mammography Narrative 07/24/2019 9:33 AM HEALTH PROMOTION MANAGER Bilateral Mammogram Reason for Exam: Screening Comparison: [...] documented as of this encounter Care Teams Guide Excursion Relationship Specialty Start Date End Date Nicole Blank MD [address] [phone] PCP - General Family Practice 10/02/13 documented as of this encounter
--- OUTSIDE RECORDS SUMMARY | 2025-03-07 18:04 | XMS_ITS | Encounter Summary ---
Author Organization [facility] Address [address] [place] [address] Care Team Providers Care Steel Pourer Helper Name Role Phone Jordan Bautista MD Primary Care Provider [phone] Encounter Details Date Type Department Care Team [...] on file Legal Sex Female 4:28 AM WATER MAIN PIPE LAYER Gender Identity Not on file Sexual Orientation Not on file COVID-19 Exposure Response Date Recorded In the last month, have you been in contact with someone who was confirmed or suspected to have Coronavirus / COVID-19? No / Unsure 08/31/2021 11:21 AM WATER MAIN PIPE LAYER documented as of this encounter Plan of Treatment Upcoming Encounters Date Type Department Care Team (Late Contact Info) Description 03/13/2025 8:20 AM CDT Office Visit [facility] [address] [address] Ramona Caballero FNP [address] [address] 04/10/2025 3:00 PM CDT Office Visit [facility] [address] [place] [address] Jordan Bautista MD [address] [place] [address] 05/21/2025 9:00 AM CDT Appointment [facility] [address] [place] [address] 11/27/2025 8:00 AM CDT Office Visit [facility] [address] [place] [address] Kelly Donohue, [facility] [address] [place] [address] documented as of this encounter Visit Diagnoses Not on filedocumented in this encounter Additional Health Concerns Infection Onset Date Last Indicated Resolved Time R/O COVID-19 09/22/2024 09/22/2024 09/23/2024 8:27 AM WATER MAIN PIPE LAYER COVID-19 10/27/2024 10/27/2024 11/16/2024 1:16 AM CDT documented as of this encounter Care Teams Steel Pourer Helper Relationship Specialty Start Date End Date Jordan Bautista MD [address] [facility] [place] [address] PCP - General Family Practice 08/24/21 documented as of this encounter
--- OUTSIDE RECORDS SUMMARY | 2025-03-07 18:04 | XMS_ITS | Encounter Summary ---
Author Organization [facility] Address [address] [place] [address] Care Team Providers Care Billing Checker Name Role Phone Jordan Bautista MD Primary Care Provider [phone] [phone] Encounter Details Date Type Department Care Team [...] on file Legal Sex Female 4:28 AM PURCHASE ORDER CHECKER Gender Identity Not on file Sexual Orientation Not on file COVID-19 Exposure Response Date Recorded In the last month, have you been in contact with someone who was confirmed or suspected to have Coronavirus / COVID-19? No / Unsure 08/31/2021 11:21 AM PURCHASE ORDER CHECKER documented as of this encounter Plan of Treatment Upcoming Encounters Date Type Department Care Team (Late Contact Info) Description 03/13/2025 8:20 AM CDT Office Visit [facility] [address] [address] Ramona Caballero FNP [address] [address] 04/10/2025 3:00 PM CDT Office Visit [facility] [address] [place] [address] Jordan Bautista MD [address] [place] [address] 05/21/2025 9:00 AM CDT Appointment [facility] [address] [place] [address] 11/27/2025 8:00 AM CDT Office Visit [facility] [address] [place] [address] Kelly Donohue, [facility] [address] [place] [address] documented as of this encounter Visit Diagnoses Not on filedocumented in this encounter Additional Health Concerns Infection Onset Date Last Indicated Resolved Time R/O COVID-19 09/22/2024 09/22/2024 09/23/2024 8:27 AM PURCHASE ORDER CHECKER COVID-19 10/27/2024 10/27/2024 11/16/2024 1:16 AM CDT documented as of this encounter Care Teams Billing Checker Relationship Specialty Start Date End Date Jordan Bautista MD [address] [facility] [address] PCP - General Family Practice 08/24/21 documented as of this encounter
--- OUTSIDE RECORDS SUMMARY | 2025-03-07 18:04 | XMS_ITS | Encounter Summary ---
Author Organization [facility] Address [address] [place] [address] Care Team Providers Care Installers Mechanical Name Role Phone Jordan Bautista MD Primary Care Provider [phone] [phone] Encounter Details Date Type Department Care Team [...] on file Legal Sex Female 4:28 AM AUTOMATION SPECIALIST Gender Identity Not on file Sexual Orientation Not on file documented as of this encounter Plan of Treatment Upcoming Encounters Date Type Department Care Team (Late st Contact Info) Description 03/13/2025 8:20 AM CDT Office Visit [address] [address] Ramona Caballero FNP [address] [address] 04/10/2025 3:00 PM CDT Office Visit [address] [address] Jordan Bautista MD [address] [address] 05/21/2025 9:00 AM CDT Appointment [facility] Outpatient Services [place] [address] [address] 11/27/2025 8:00 AM CDT Office Visit [facility] Medicine [place] [address] [address] Kelly Donohue, [facility] [address] [address] documented as of this encounter Visit Diagnoses Not on filedocumented in this encounter Care Teams Installers Mechanical Relationship Specialty Start Date End Date Jordan Bautista MD [address] [facility] [place] [address] PCP - General Family Practice 08/24/21 documented as of this encounter
--- OUTSIDE RECORDS SUMMARY | 2025-03-07 18:04 | XMS_ITS | Clinical Summary ---
Author Organization [facility] Address [address] [place] [address] Care Team Providers Care Management Architect Name Role Phone Jordan Bautista MD Primary Care Provider [phone] Allergies Active Allergy Reactions Criticality Noted Date [...] TWICE DAILY 180 mL 11 024 Active ipratropium-albute roL (DUONEB) 0.5 mg-3 [...] as needed for Spasm. 90 Tablet 1 Active Blood-Glucose Meter KitIndications:New onset type 2 diabetes mellitus (CMS/HCC) Check blood sugars once a day and PRN 1 Each 025 Active lancetsIndications :New onset type 2 diabetes mellitus (CMS/[facility]) Check blood sugars once daily and prn 100 Each 3 025 Active blood sugar diagnostic (Blood Glucose Test) StripIndications:N ew onset type 2 diabetes mellitus (CMS/HCC) Check blood sugars daily and prn 100 Each 3 025 Active simvastatin (ZOCOR) 40 mg tabletIndications: Mixed hyperlipidemia TAKE 1 TABLET BY MOUTH ONCE DAILY AT BEDTIME 100 Tablet 3 Active ALPRAZolam (XANAX) 0.25 mg tabletIndications: Situational anxiety,Grief reaction Take 1 tablet by mouth twice daily as needed for anxiety 60 Tablet 5 Active omeprazole (PriLOSEC) 20 mg Capsule, Delayed Release(E.C.)Indic ations:Indigestion Take 1 capsule by mouth once daily 100 Capsule 1 Active losartan (COZAAR) 100 mg tabletIndications: Primary hypertension Take 1 Tablet (100 mg) by mouth daily. 100 Tablet 3 Active amiodarone (CORDARONE) 200 mg tablet TAKE 1 TABLET BY MOUTH TWICE DAILY FOR ONE WEEK, THEN TAKE 1 TAB DAILY Active Eliquis 5 mg tablet TAKE 1 TABLET BY MOUTH TWICE DAILY, AT 09:00 AND AT 21:00 FOR 30 DAYS 025 Active Farxiga 10 mg Tablet Take 1 Tablet by mouth daily. Active metoprolol tartrate (LOPRESSOR) 50 mg tablet TAKE 1 TABLET BY MOUTH TWICE DAILY, AT 09:00 AND ONE AT 21:00 FOR 30 DAYS Active bumetanide (BUMEX) 0.5 mg tabletIndications: Ankle edema, bilateral Take 1 Tablet (0.5 mg) by mouth 1 time daily as needed for Other (See Comment) (edema). 30 Tablet 1 025 Active omeprazole (PriLOSEC) 20 mg Capsule, Delayed Release(E.C.)Indic ations:Indigestion TAKE 1 CAPSULE(20 MG) BY MOUTH DAILY 100 Capsule 3 024 2024 Discontinued bumetanide (BUMEX) 0.5 mg tabletIndications: Ankle edema, bilateral Take 1 Tablet (0.5 mg) by mouth 1 time daily as needed for Other (See Comment) (edema). 30 Tablet 1 024 2024 Discontinued(R eorder) metFORMIN (GLUCOPHAGE XR) 500 mg Extended Release 24 hour tabletIndications: New onset type 2 diabetes mellitus (CMS/HCC) Take 1 Tablet (500 mg) by mouth daily with breakfast. 100 Tablet 3 025 2024 Discontinued(A lternate therapy prescribed) triamterene-hydroC HLOROthiazide (DYAZIDE) 37.5-25 mg capsuleIndications :Primary hypertension Take 1 capsule by mouth once daily in the morning 100 Capsule 2 025 2024 Discontinued atenoloL (TENORMIN) 50 mg tabletIndications: Primary hypertension Take 2 tablets by mouth once daily 200 Tablet 2 025 2024 Discontinued(A lternate therapy prescribed) nitrofurantoin (MACROBID) 100 mg capsuleIndications :Acute cystitis with hematuria Take 1 Capsule (100 mg) by mouth 2 times daily for 7 days. 14 Capsule 025 2024 Additional Information Patient not taking.Reported on 02/04/2025 cyclobenzaprine (FLEXERIL) 10 mg tabletIndications: Primary osteoarthritis of knee, unspecified laterality TAKE 1 TABLET BY MOUTH ONCE DAILY AT BEDTIME NEEDED FOR DISCOMFORT OR SPASM 30 Tablet 2 025 2024 Discontinued(A lternate therapy prescribed) meloxicam (MOBIC) 7.5 mg tabletIndications: Primary osteoarthritis of knee, unspecified laterality Take 2 tablets by mouth once daily 200 Tablet 1 025 2024 Discontinued(A lternate therapy prescribed) losartan (COZAAR) 50 mg tablet Take 1 [...] Active Problems Problem Noted Date Diagnosed Date Atypical atrial flutter 03/06/2025 Chronic respiratory failure with hypoxia 025 Stage 3a chronic kidney disease 10/10/2024 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 10/26/2023 Chronic obstructive pulmonary disease 06/15/2023 Vitamin D deficiency 03/21/2012 Overview (12/09/2020): 25 Vitamin D: 32 (01/23); 11 (03/24) Osteoporosis 03/18/2012 Overview (12/09/2020): BMD (02/20): Spine [...] Encounters Date Type Department Care Team Description 03/06/2025 9:00 AM CDT Office Visit [address] [address] Ramona Caballero, ENTRY LEVEL BUYER Primary hypertension (Primary Dx); Ankle edema, bilateral; Atypical atrial flutter (CMS/HCC) 03/02/2025 Orders Only [facility] [address] [place] [address] Provider, Abstract 02/25/2025 External Device Data [facility] ABSTRACTION Provider, Abstract 02/24/2025 External Device Data [facility] ABSTRACTION Provider, Abstract 02/24/[address] [address] Jordan Bautista MD Results 02/23/2025 Results Follow-Up [address] [address] Ramona Caballero, ENTRY LEVEL BUYER BASIC METABOLIC PANEL, CBC WITH DIFFERENTIAL 02/20/2025 8:40 AM CDT Office Visit [address] [address] Ramona Caballero, ENTRY LEVEL BUYER Primary hypertension (Primary Dx); Simple chronic bronchitis (CMS/HCC) 02/10/[address] [phone] Kelly Donohue, ENTRY LEVEL BUYER Indigestion 02/06/2025 Results Follow-Up [address] [address] Khalida Archuleta, ENTRY LEVEL BUYER POC URINALYSIS DIPSTICK AUTOMATED, URINE CULTURE, CBC WITH DIFFERENTIAL 02/04/2025 11:00 AM CDT Office Visit [address] [phone] Khalida Archuleta, ENTRY LEVEL BUYER Other fatigue (Primary Dx); Skin yeast infection; Urinary tract infection without hematuria, site unspecified; Frail elderly; Hypertension, unspecified type; Hyperlipidemia, unspecified hyperlipidemia type 02/04/2025 Orders Only [address], [place] [phone] Maritza Jaime, RN Skin yeast infection 02/04/[address], [place] [phone] Jordan Bautista MD Medication Question 02/04/[address], [place] [phone] Ramona Caballero FNP 02/03/2025 Telephone [place] [phone] Jordan Bautista MD Medication Question; Question 02/03/[address], [facility] Jordan Bautista MD Situational anxiety; Grief reaction 02/03/[address], [phone] Kelly Donohue, ENTRY LEVEL BUYER Mixed hyperlipidemia; Primary osteoarthritis of knee, unspecified laterality 02/03/2025 Results Follow-Up [address], [phone] Ramona Caballero FNP POC URINALYSIS DIPSTICK AUTOMATED, URINE CULTURE 02/02/[address], [phone] Jordan Bautista MD Clinical Consult Before Scheduling; Patient Communication 01/30/2025 12:40 PM CDT Office Visit [address], [phone] Federico, Ramona Jacobs, ENTRY LEVEL BUYER Acute cystitis with hematuria (Primary Dx); Sensation of pressure in bladder area 01/27/2025 External Device Data STL ABSTRACTION Provider, Abstract 01/20/2025 Abstract [facility] [address] [place] [phone] Provider, Abstract 01/15/2025 Refill [facility] [address] [place] [address] Jordan Bautista MD Primary hypertension 01/03/2025 Refill [facility] [address] [place] [address] Kelly Donohue, ENTRY LEVEL BUYER Primary hypertension 01/01/2025 External Device Data [facility] ABSTRACTION Provider, Abstract 12/31/2024 External Device Data [facility] ABSTRACTION Provider, Abstract 12/30/2024 External Device Data [facility] ABSTRACTION Provider, Abstract from Last 3 Months Immunizations Immunization Administration Dates Next Due (Tissue Genesis)(12 YR UP) COVID-19 VACCINE - EMERGENCY USE AUTHORIZATION, MRNA, [id number](PF) 30 MCG/0.3 ML IM SUSP 08/23/2021,11/25/2020,11/04/2020 (PNEUMOVAX [...] Cancer Kidney Disease Father Heart Attack Mother lavell mckeon I THINK NO CHO L. SHE WAS [...] on file Legal Sex Female 4:28 AM MEDICAL PHYSICS PROFESSOR Gender Identity Not on file Sexual Orientation [...] Mass Index 31.67 03/06/2025 9:08 AM CDT Plan of Treatment Upcoming Encounters Date Type Department Care Team (Late st Contact Info) Description 03/13/2025 8:20 AM CDT Office Visit [facility] [place] [address] [address] Ramona Caballero FNP [address] [address] 04/10/2025 3:00 PM CDT Office Visit [facility] [address] [address] Jordan Bautista MD [address] [address] 05/21/2025 9:00 AM CDT Appointment [facility] [place] [address] [place] [address] 11/27/2025 8:00 AM CDT Office Visit [facility] [address] [address] Kelly Donohue, [facility] [address] [address] Health Maintenance Due Date Last Done [...] METABOLIC PANEL Routine 03/01/2025 10:43 AM CDT CBC WITH DIFFERENTIAL Routine 02/20/2025 9:11 AM [...] OR MORE SITES Routine 07/11/2023 12:05 PM MEDICAL PHYSICS PROFESSOR Postmenopausal OCCULT BLOOD IMMUNOASSAY, COLORECTAL SCREEN Routine 07/29/2019 4:29 PM MEDICAL PHYSICS PROFESSOR from Last 3 Months or Most Recently Relevant to Health Maintenance Results * COMPREHENSIVE METABOLIC PANEL (03/01/2025 10:43 AM CDT) Blood us Abstract Provider CHEMISTRY ORDERABLES Final Res ult * (ABNORMAL) CBC WITH DIFFERENTIAL (02/20/2025 9:11 [...] [facility] Comment: Test Performed at: [facility] [address] [address], [place] [address] Ladi Gray MD Blood 02/20/2025 9:11 AM CDT 02/21/2025 3:13 AM CDT us Ramona Padillas ENTRY LEVEL BUYER HEMATOLOGY ORDERABLES Fi nal Result [facility] [phone] [facility] [address] * (ABNORMAL) BASIC METABOLIC PANEL (02/20/2025 9:11 [...] [facility] Comment: Test Performed at: [facility] [address] Ladi Gray MD Blood 02/20/2025 9:11 AM CDT 02/21/2025 3:13 AM CDT Ramona Caballero ENTRY LEVEL BUYER CHEMISTRY ORDERABLES Fin al Result [facility] [phone] [facility] [address] [address] * URINE CULTURE (02/04/2025 11:11 AM CDT) Only the most recent of2 resultswithin the time period is included. Pathologist [facility] URINE CULTURE SEE NOTE [facility] Comment: CULTURE, URINE, ROUTINE Micro Number: [id number] Test Status: Final Specimen Source: Urine, clean catch Specimen Quality: Adequate Result: Mixed genital shanika isolated. These superficial bacteria are not indicative of a urinary tract infection. No further organism identification is warranted on this specimen. If clinically indicated, recollect clean-catch, mid-stream urine and transfer immediately to Urine Culture Transport Tube. Test Performed at: [facility] [address] [place] [address] Ladi Gray MD Urine URINE SPECIMEN OBTAINED BY CLEAN CATCH PROCEDURE / Unknown 02/04/2025 11:11 AM CDT 02/05/2025 3:07 AM CDT us Khalida Archuleta [facility] MICROBIOLOGY - GENERAL TIFFANIE FLOOD Final Result [facility] [phone] [facility] [address] * (ABNORMAL) POC URINALYSIS DIPSTICK AUTOMATED (02/04/2025 11:10 AM CDT) Only the most recent of2 resultswithin the time period is included. COLOR UA POC Yellow Pale to Dark Yellow [facility] CLARITY UA POC Clear Clear, Other [facility] GLUCOSE UA POC Negative Negative, Normal [facility] BILIRUBIN UA POC Negative Negative [facility] KETONES UA POC Negative Negative [facility] SPECIFIC GRAVITY UA POC 1.015 1.000 - 1.030 [facility] BLOOD UA POC Negative Negative [facility] PH UA POC 6.0 5.0 - 8.0 [facility] PROTEIN UA POC 1+(A) Negative [facility] UROBILINOGEN UA POC 0.2 <2.0 mg/dL [facility] NITRITE UA POC Negative Negative [facility] LEUKOCYTE ESTERASE UA POC Negative Negative [facility] KIT [address] NUMBER POC [phone] [facility] KIT EXP DATE POC 08/12/2025 [facility] Urine 02/04/2025 11:1 0 AM CDT Khalida Archuleta ENTRY LEVEL BUYER POINT OF CARE TESTING Final Result [facility] CLIA# [id number] [address] [place] [address] * (ABNORMAL) XR DEXA BONE DENSITY AXIAL 1 OR MORE SITES (07/11/2023 12:05 PM MEDICAL PHYSICS PROFESSOR) T-SCORE HIP (LEFT) -2.10(A) -1.0 - 1.0 INTERFACE SYSTEM T-SCORE SPINE -2.80(A) -1.0 - 1.0 INTER FACE SYSTEM Anatomical Region Laterality Modality Digital Radiogra phy, Mammography 07/11/2023 12:0 5 PM MEDICAL PHYSICS PROFESSOR Impressions 07/11/2023 9:16 PM MEDICAL PHYSICS PROFESSOR IMPRESSION: Fairly stable abnormal examination demonstrating osteoporotic [...] and 20% respectively. Narrative 07/11/2023 9:16 PM MEDICAL PHYSICS PROFESSOR DEXA Evaluation of the Lumbar Spine and [...] are 7.0% and 20% respectively. Kelly Donohue [facility] DIAGNOSTIC IMAGING ORDER MANDEEP Final Result * OCCULT BLOOD IMMUNOASSAY, COLORECTAL SCREEN (07/29/2019 4:29 PM MEDICAL PHYSICS PROFESSOR) Pathologist [facility] OCCULT BLOOD, STOOL Negative Negative 07/30/2019 12:13 PM MEDICAL PHYSICS PROFESSOR [facility] Stool STOOL SPECIMEN / Unknown 07/29/2019 4:29 PM MEDICAL PHYSICS PROFESSOR 07/29/2019 4:29 PM MEDICAL PHYSICS PROFESSOR us Nicole Blank MD BODY FLUIDS AND STOOLS Bree darling Result [facility]# [id number] [address] [place] [address] from Last 3 Months or Most Recently Relevant to Health Maintenance Insurance MEDICARE PART A AND B [employer] [facility] Address: [address] [address] Advance Directives For more information, please contact: [phone] Documents on File Type Date Recorded Patient Civil Preparedness Coordinator Expl anation Advance Directive Living Will 12/12/2024 [...] Non-Invasive (i.e. BiPAP, CPAP): No Care Teams Management Architect Relationship Specialty Start Date End Date Jordan Bautista MD [address] [place] [address] PCP - General Family Practice 08/24/21
--- OUTSIDE RECORDS SUMMARY | 2025-03-07 18:04 | XMS_ITS | Encounter Summary ---
Author Organization [facility] Address [address] [place] [address] Care Team Providers Care Manager Of Change Name Role Phone Jordan Bautista MD Primary Care Provider [phone] [phone] Encounter Details Date Type Department Care Team [...] on file Legal Sex Female 4:28 AM JAVA SOFTWARE Gender Identity Not on file Sexual Orientation Not on file COVID-19 Exposure Response Date Recorded In the last month, have you been in contact with someone who was confirmed or suspected to have Coronavirus / COVID-19? No / Unsure 08/31/2021 11:21 AM JAVA SOFTWARE documented as of this encounter Plan of Treatment Upcoming Encounters Date Type Department Care Team (Late Contact Info) Description 03/13/2025 8:20 AM CDT Office Visit [facility] [address] [address] Ramona Caballero FNP [address] [address] 04/10/2025 3:00 PM CDT Office Visit [facility] [address] [place] [address] Jordan Bautista MD [address] [place] [address] 05/21/2025 9:00 AM CDT Appointment [facility] [address] [place] [address] 11/27/2025 8:00 AM CDT Office Visit [facility] [address] [place] [address] Kelly Donohue, [facility] [address] [place] [address] documented as of this encounter Visit Diagnoses Not on filedocumented in this encounter Additional Health Concerns Infection Onset Date Last Indicated Resolved Time R/O COVID-19 09/22/2024 09/22/2024 09/23/2024 8:27 AM JAVA SOFTWARE COVID-19 10/27/2024 10/27/2024 11/16/2024 1:16 AM CDT documented as of this encounter Care Teams Manager Of Change Relationship Specialty Start Date End Date Jordan Bautista MD [address] [facility] [place] [address] PCP - General Family Practice 08/24/21 documented as of this encounter
--- OUTSIDE RECORDS SUMMARY | 2025-03-07 18:04 | XMS_ITS | Encounter Summary ---
Author Organization [facility] Address [address] [place] [address] Care Team Providers Care Womens Health Nurse Practitioner Name Role Phone Jordan Bautista MD Primary Care Provider [phone] Encounter Details Date Type Department Care Team [...] on file Legal Sex Female 4:28 AM RECONNAISSANCE MAN Gender Identity Not on file Sexual Orientation Not on file COVID-19 Exposure Response Date Recorded In the last month, have you been in contact with someone who was confirmed or suspected to have Coronavirus / COVID-19? Unable to assess 09/12/2021 1:14 PM RECONNAISSANCE MAN documented as of this encounter Plan of Treatment Upcoming Encounters Date Type Department Care Team (Late Contact Info) Description 03/13/2025 8:20 AM CDT Office Visit [facility] [place] [address] [address] Ramona Caballero FNP [address] [address] 04/10/2025 3:00 PM CDT Office Visit [facility] [address] [place] [address] Jordan Bautista MD [address] [place] [address] 05/21/2025 9:00 AM CDT Appointment [facility] [address] [place] [address] 11/27/2025 8:00 AM CDT Office Visit [facility] [address] [place] [address] Kelly Donohue, [facility] [address] [place] [address] documented as of this encounter Visit Diagnoses Not on filedocumented in this encounter Additional Health Concerns Infection Onset Date Last Indicated Resolved Time R/O COVID-19 09/22/2024 09/22/2024 09/23/2024 8:27 AM RECONNAISSANCE MAN COVID-19 10/27/2024 10/27/2024 11/16/2024 1:16 AM CDT documented as of this encounter Care Teams Womens Health Nurse Practitioner Relationship Specialty Start Date End Date Jordan Bautista MD [address] [facility] [place] [address] PCP - General Family Practice 08/24/21 documented as of this encounter
--- OUTSIDE RECORDS SUMMARY | 2025-03-07 18:04 | XMS_ITS | Encounter Summary ---
Author Organization [facility] Address [address] [place] [address] Care Team Providers Care Correctional Officer Captain Name Role Phone Jordan Bautista MD Primary Care Provider [phone] Encounter Details Date Type Department Care Team [...] on file Legal Sex Female 4:28 AM REJECT OPENER Gender Identity Not on file Sexual Orientation Not on file COVID-19 Exposure Response Date Recorded In the last month, have you been in contact with someone who was confirmed or suspected to have Coronavirus / COVID-19? No / Unsure 08/31/2021 11:21 AM REJECT OPENER documented as of this encounter Plan of Treatment Upcoming Encounters Date Type Department Care Team (Late Contact Info) Description 03/13/2025 8:20 AM CDT Office Visit [facility] [address] [address] Ramona Caballero FNP [address] [address] 04/10/2025 3:00 PM CDT Office Visit [facility] [address] [place] [address] Jordan Bautista MD [address] [place] [address] 05/21/2025 9:00 AM CDT Appointment [facility] [address] [place] [address] 11/27/2025 8:00 AM CDT Office Visit [facility] [address] [place] [address] Kelly Donohue, [facility] [address] [place] [address] documented as of this encounter Visit Diagnoses Not on filedocumented in this encounter Additional Health Concerns Infection Onset Date Last Indicated Resolved Time R/O COVID-19 09/22/2024 09/22/2024 09/23/2024 8:27 AM REJECT OPENER COVID-19 10/27/2024 10/27/2024 11/16/2024 1:16 AM CDT documented as of this encounter Care Teams Correctional Officer Captain Relationship Specialty Start Date End Date Jordan Bautista MD [address] [facility] [place] [address] PCP - General Family Practice 08/24/21 documented as of this encounter
[2025-03-07 18:10] VITALS: BP 211/98; PULSE 77; RESP 22; O2SAT 98
[2025-03-07 18:13] LABS: Hematocrit 38.2 % (36-47); Hemoglobin 12.00 g/dL (11.27-16.99); Mean Corpuscular HGB Conc 31.4 g/dL (30-55); Mean Corpuscular Hemoglobin 28.4 pg (27-33); Mean Corpuscular Volume 90.3 fl (85-98); Nucleated Red Blood Cells % 0 %; Platelet Count 204 10^3/cmm (157-399); Red Blood Count 4.23 10^6/uL (3.85-5.65); White Blood Count 7.72 10^3/uL (3.29-11.43)
--- NOTE | 2025-03-07 18:18 | XRR_ITS ---
PROCEDURE INFORMATION: Exam: XR Chest Exam date and time: 03/07/2025 6:22 PM Age: 79 years old Clinical indication: Shortness of breath; Additional info: SOB TECHNIQUE: Imaging protocol: Radiologic exam of the chest. Views: 1 view. COMPARISON: CR (CHEST, ) 03/01/2025 6:28 AM FINDINGS: Lungs: Similar mild interstitial coarsening and bibasilar opacities. Pleural spaces: Unremarkable. No pleural effusion. No pneumothorax. Heart/Mediastinum: Unremarkable. No cardiomegaly. Vasculature: Atherosclerotic aortic calcifications. Diaphragm: Persistent asymmetric elevation of the right hemidiaphragm. Bones/joints: Unremarkable. XR/XR chest 1V portable [id number] IMPRESSION: Bibasilar opacities favor atelectasis. Developing infiltrate not excluded in the correct clinical setting.
[2025-03-07 18:29] VITALS: BP 228/92; PULSE 74; RESP 25; O2SAT 96
[2025-03-07] MEDS: labetalol 5 mg/mL SDV 20mL 10 MG IVP (18:35)
[2025-03-07 18:38] LABS: Alanine Aminotransferase 11 U/L (0-33); Albumin Level 3.6 g/dL (3.5-5.2); Alkaline Phosphatase 79 U/L (35-105); Blood Urea Nitrogen 21 mg/dL (8-23); Calcium 8.8 mg/dL (8.5-10.5); Carbon Dioxide 27 mmol/L (22-29); Chloride 99 mmol/L (98-107); Creatinine Clr Calc Pharmacy 55.8932; Globulin 3.4 g/dL (1.3-4.6); Glucose 141 mg/dL (65-115); Osmolality Calculated 291 mOsm/kg (285-295); Sodium 138 mmol/L (136-145); Total Protein 7.0 g/dL (6.6-8.7)
[2025-03-07 18:40] LABS: Anion Gap 16.2 (5-19); Aspartate Amino Transferase 21 U/L (0-32); Potassium 4.2 mmol/L (3.5-5.1)
[2025-03-07 18:47] LABS: Glucose Urine UA 2+ (Normal); Nitrate Urine Negative (Negative); Specific Gravity, Urine 1.014 (1.005-1.030)
[2025-03-07 18:52] LABS: Add Urine Microscopic? YES
[2025-03-07 18:59] LABS: NT Pro B Type Natriuretic Pept 971 pg/mL (0-450); Thyroid Stimulating Hormone 3.77 uIU/mL (0.27-4.20)
--- NOTE | 2025-03-07 19:22 | ED_ITS ---
HPI - General Adult 2 General: Chief complaint: General Medical Stated complaint: HTN Time Seen by Provider: 03/07/25 17:49 History of Present Illness: 79-year-old female with complaints of si gnificant hypertension, mild headache, mild dizziness, for the last couple of days. She notes that since her release from the hospital, her blood pressure is slowly but steadily,. Today it was well over 200 systolic at home. She complains of mild dizziness, mild headache when her pressure was that high. Her heart rate, unlike last time, has not been high. She has been taking her medications appropriately she says. Related Data Home Medications ?Medication ?Instructions ?Recorded ?Confirmed alprazolam 0.25 mg tablet 0.125 mg PO TID 04/22/24 omeprazole 20 mg capsule,delayed 20 mg PO DAILY 03/01/25 release simvastatin 40 mg tablet 40 mg PO DAILY 04/22/2402/11 calcium 600 mg (as 1 tab PO DAILY 03/01/2502/11 carbonate)-vitamin D3 5 mcg (200 unit) tablet losartan 100 mg tablet 100 mg PO DAILY 03/01/25 Previous Rx's ?Medication ?Instructions ?Recorded CAM BOOT #1 ea 04/22/24 ASO brace #1 ea 05/14/24 amiodarone 200 mg tablet (Pacerone) 200 mg PO BID #60 tabs 03/03/25 apixaban 5 mg tablet (Eliquis) 5 mg PO BID@0900,2100 3 0 days #60 03/03/25 tabs dapagliflozin propanediol 10 mg 10 mg PO DAILY #30 tab s 03/03/25 tablet (Farxiga) ipratropium bromide 0.02 % 2.5 ml inhalation TID #75 m L 03/03/25 solution for inhalation levalbuterol tartrate 45 1 inh inhalation Q4H PRN isidro rtness 03/03/25 mcg/actuation aerosol inhaler of breath or wheezing #1 5 grams (Xopenex HFA) metoprolol tartrate 50 mg tablet 50 mg PO BID@0900,210 0 30 days #60 03/03/25 tabs amlodipine 10 mg tablet 10 mg PO DAILY #30 tabs 02/11 02/04 Allergies Allergy/AdvReac Type Severity Reaction Status Date / Time atorvastatin (From Lipitor) Allergy ADR-Back Verified 03/02/25 08:03 Pain azithromycin Allergy Unknown Verified 03/01/25 06:11 Sulfa (Sulfonamide Allergy Unknown Verified 10/08/24 14:21 Antibiotics) PFSH ED 2 PFSH: Medical History Hypertension Presbycusis of both ears Diabetes COPD (chronic obstructive pulmonary disease) Social History Smoking and tobacco/nicotine status: never used tobacco/nicotine Alcohol intake: never Substance/Drug Use: never Additional social history: 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 Physical Exam 2 Const: COMMON NORMALS: no acute distress GENERAL APPEARANCE: cooperative; not ill appearing HENMT: COMMON NORMALS: normocephalic, atraumatic and Normal external nose present HEAD & SCALP: normocephalic and atraumatic FACE & SINUS: normal facial exam and face symmetric NOSE: Normal external nose present Eye: COMMON NORMALS: Equal, round and reactive pupils present and EOMs intact bilaterally PUPIL: Yes Equal, round and reactive pupils present Neck/C-Spine: GENERAL: Yes trachea midline Chest: CHEST: Yes Symmetrical chest wall rise Resp: COMMON NORMALS: normal respiratory effort, No retractions, No use of accessory muscles and clear to auscultation bilaterally AUSCULTATION: clear to auscultation bilaterally Cardio: COMMON NORMALS: regular rate and regular rhythm RATE: regular rate RHYTHM: regular rhythm GI: COMMON NORMALS: Normal to inspection, nondistended, normoactive bowel sounds present Extremity: COMMON NORMALS: no pedal edema Neuro: RAFI COMA SCALE: document GCS findings [place] coma scale eye opening: Spontaneous Rafi coma scale verbal response: Orientated [place] coma scale motor response: Obey commands [place] coma scale total score: 15 S ENSORY EXAM: Yes extremities (intact) Psych: COMMON NORMALS: speech normal SPEECH: Yes normal speech Skin: COMMON NORMALS: no rashes or lesions noted GENERAL SKIN EXAM: no rashes or lesions noted Course 2 Vital Signs: Vital signs: Vital Signs Temperature 98.1 F 03/07/25 17:50 Pulse Rate 72 03/07/25 20:24 Respiratory Rate 16 03/07/25 20:24 Blood Pressure 174/83 03/07/25 20:24 Pulse Oximetry 93 03/07/25 20:24 Oxygen Delivery Me thod Nasal Cannula 03/07/25 18:29 Oxygen Flow Rate 2 03/07/25 18:29 MDM - General Adult Medical Decision Making Blood pressures improved after administration of labetalol, 10 mg, Vasotec, and amlodipine. CBC and BMP are normal. EKG shows no acute ST wave changes. TSH is 3.77. She does have 2+ protein in her urine. Only trace blood. Chest x-ray she says bibasilar atelectasis. BNP is not significantly elevated. Blood pressure is now 162/81. Will continue her amlodipine. Lab Data 03/07/25 18:04 03/07/25 18:04 Radiology Impressions Chest X-Ray 03/07/25 18:18 IMPRESSION: Bibasilar opacities favor atelectasis. Developing infiltrate not excluded in the correct clinical setting. Laboratory Results WBC 7.72 10^3/uL (3.29-11.43) 03/07/25 18:04 RBC 4.23 10^6/uL (3.85-5.65) 03/07/25 18:04 Hgb 12.00 g/dL (11.27-16.99) 03/07/25 18:04 Hct 38.2 % (36-47) 03/07/25 18:04 MCV 90.3 fl (85-98) 03/07/25 18:04 MCH 28.4 pg (27-33) 03/07/25 18:04 MCHC 31.4 g/dL (30-55) 03/07/25 18:04 RDW 11.9 % (12.1-15.1) L 03/07/25 18:04 Plt Count 204 10^3/cmm (157-399) 03/07/25 18:04 MPV 10.3 fL (7.4-10.4) 03/07/25 18:04 Neut % (Auto) 70.5 % 03/07/25 18:04 Lymph % (Auto) 15.0 % 03/07/25 18:04 [place] % (Auto) 9.6 % 03/07/25 18:04 Eos % (Auto) 3.8 % 03/07/25 18:04 Baso % (Auto) 0.3 % 03/07/25 18:04 Neut # (Auto) 5.45 10^3/uL (1.8-7.7) 03/07/25 18:04 Lymph # (Auto) 1.2 10^3/uL (0.8-4.8) 03/07/25 18:04 [place] # (Auto) 0.7 10^3/uL (0.2-0.9) 03/07/25 18:04 Eos # (Auto) 0.3 10^3/uL (0.0-0.8) 03/07/25 18:04 Baso # (Auto) 0.0 10^3/uL (0.0-0.1) 03/07/25 18:04 Nucleated RBC % (auto) 0 % 03/07/25 18:04 Nucleated RBCs # 0.0 /100WBC 03/07/25 18:04 Sodium 138 mmol/L (136-145) 03/07/25 18:04 Potassium 4.2 mmol/L (3.5-5.1) 03/07/25 18:04 Chloride 99 mmol/L (98-107) 03/07/25 18:04 Carbon Dioxide 27 mmol/L (22-29) 03/07/25 18:04 Anion Gap 16.2 (5-19) 03/07/25 18:04 BUN 21 mg/dL (8-23) 03/07/25 18:04 Creatinine 0.9 mg/dL (0.5-0.9) 03/07/25 18:04 GFR Calculation Not Reportable 03/07/25 18:04 Glucose 141 mg/dL (65-115) H 03/07/25 18:04 Calculated Osmolality 291 mOsm/kg (285-295) 03/07/25 18:04 Calcium 8.8 mg/dL (8.5-10.5) 03/07/25 18:04 Total Bilirubin 0.3 mg/dL (0.15-1.2) 03/07/25 18:04 AST 21 U/L (0-32) 03/07/25 18:04 ALT 11 U/L (0-33) 03/07/25 18:04 Alkaline Phosphatase 79 U/L (35-105) 03/07/25 18:04 NT-Pro-B Natriuret Pep 971 pg/mL (0-450) H 03/07/25 18:04 Total Protein 7.0 g/dL (6.6-8.7) 03/07/25 18:04 Albumin 3.6 g/dL (3.5-5.2) 03/07/25 18:04 Globulin 3.4 g/dL (1.3-4.6) 03/07/25 18:04 TSH 3.77 uIU/mL (0.27-4.20) 03/07/25 18:04 Urine Color Yellow (Yellow) 03/07/25 18:40 Urine Appearance Clear (CLEAR) 03/07/25 18:40 Urine pH 6.5 (5-7) 03/07/25 18:40 Ur Specific [place] 1.014 (1.005-1.030) 03/07/25 18:40 Urine Protein 2+ (Negative) A 03/07/25 18:40 Urine Glucose (UA) 2+ (Normal) H 03/07/25 18:40 Urine Ketones Negative (Negative) 03/07/25 18:40 Urine Blood Trace (Negative) A 03/07/25 18:40 Urine Nitrate Negative (Negative) 03/07/25 18:40 Urine Bilirubin Negative (Negative) 03/07/25 18:40 Urine Urobilinogen 0.2 mg/dL (Negative) 03/07/25 18:40 Ur Leukocyte Esterase Negative (Negative) 03/07/25 18:40 Urine RBC 3-5 /hpf (0-2) 03/07/25 18:40 Urine WBC 6-10 /hpf (0-5) 03/07/25 18:40 Ur Squamous Epith Cells 0-5 /hpf (0-5) 03/07/25 18:40 Amorphous Sediment Not Reportable 03/07/25 18:40 Urine Bacteria 2+ /hpf (NONE) H 03/07/25 18:40 Hyaline Casts 0.40 /lpf 03/07/25 18:40 All radiology interpretation(s) finalized by discharge Discharge Plan Discharge Patient Disposition: Home Clinical Impression: Hypertension Condition: Stable Prescriptions: New amlodipine 10 mg tablet 10 mg PO DAILY Qty: 30 0RF No Action omeprazole 20 mg capsule,delayed release(DR/EC) 20 mg PO DAILY alprazolam 0.25 mg tablet 0.125 mg PO TID simvastatin 40 mg tablet 40 mg PO DAILY (DME) SAMUEL HOFF See Rx Instructions .Route .MEDSUPPLY Qty: 1 0RF Rx Instructions: As directed (DME) ASO georgette See Rx Instructions .Route .MEDSUPPLY Qty: 1 0RF Rx Instructions: As directed calcium carbonate-vitamin D3 600 mg-5 mcg (200 unit) Tablet 1 tab PO DAILY losartan 100 mg tablet 100 mg PO DAILY amiodarone [Pacerone] 200 mg Tablet 200 mg PO BID Qty: 60 0RF Rx Instructions: 200 mg twice daily for 1 week, 200 mg daily Eliquis 5 mg Tablet 5 mg PO BID@0900,2099 30 Days Qty: 60 0RF metoprolol tartrate 50 mg Tablet 50 mg PO BID@0900,2099 30 Days Qty: 60 0RF dapagliflozin propanediol [Farxiga] 10 mg tablet 10 mg PO DAILY Qty: 30 3RF levalbuterol tartrate [Xopenex HFA] 45 mcg/actuation HFA aerosol inhaler 1 inh inhalation Q4H PRN (Reason: shortness of breath or wheezing) Qty: 15 0RF ipratropium bromide 0.02 % solution 2.5 ml inhalation TID Qty: 75 0RF Discharge Orders: Discharge ED (Routine); Ordered 03/07/25 Ordered By: Kenneth Mann Referrals: Kelly Donohue [Primary Care Provider, Family Practice] - 1-3 days Patient Instructions: Hypertension (ED), Opioid Safety, Pain Management, Patient Portal & Chin Instructions Activity Restrictions/Additional Instructions: Your blood pressure after medication is significantly improved. Do not check your blood pressure again tonight. Starting tomorrow, check it twice daily. If it remains greater than 150/90, you may take the medication prescribed. If numbers are below this, do not take the medication. Continue all of your other medications as directed. Call your doctor Sunday for a follow-up appointment this week. Print Language: French Coding Level of Care Code ED [employer] Maintenance for Debby Krause
[2025-03-07 20:22] VITALS: BP 174/83
[2025-03-07 20:24] VITALS: BP 174/83; PULSE 72; RESP 16; O2SAT 93
== END 2025-03-07 20:28 | disposition home or self-care (01) ==
PROVIDERS: Family Medicine; Emergency Provider Emergency Medicine; PCP Registered Nurse
DX: I10 Essential (primary) hypertension (principal); Z79.01 Long term (current) use of anticoagulants; E11.9 Type 2 diabetes mellitus without complications; J44.9 Chronic obstructive pulmonary disease, unspecified
CPT/HCPCS: 71045; 80053; 81001; 83880; 84443; 85025; 93005; 96374; 96375; 99285; J3490; J9999

== ENCOUNTER → 2025-03-18 12:27 | Outpatient (BNVA) | payer MEDICARE, OTHER, SELFPAY | PROVIDERS: PCP Registered Nurse; Visit Provider Internal Medicine Cardiovascular Disease | DX: I48.20 Chronic atrial fibrillation, unspecified (principal); Z79.01 Long term (current) use of anticoagulants; I10 Essential (primary) hypertension; Z87.891 Personal history of nicotine dependence; I25.2 Old myocardial infarction | CPT/HCPCS: 99214 ==

== ENCOUNTER → 2025-07-27 14:09 | Outpatient (BNVA) | payer MEDICARE, OTHER, SELFPAY | PROVIDERS: PCP Registered Nurse; Visit Provider Nurse Practitioner Family | DX: I48.91 Unspecified atrial fibrillation (principal); I10 Essential (primary) hypertension; R60.0 Localized edema; Z79.01 Long term (current) use of anticoagulants | CPT/HCPCS: 99214 ==